=== PATIENT | female | born 1940 | race Caucasian/White ===

== ENCOUNTER 2017-12-19 11:33 | Inpatient (IN) | payer OTHER ==
[2017-12-19] MEDS: NS 1000 ML 1,000 ML IV SCH (12:10)
[2017-12-19 12:27] LABS: BASOPHILS % (AUTO) 0.5 % (0.2-1.0); EOSINOPHILS % (AUTO) 0.1 % (0.9-2.9); HEMATOCRIT 47.4 % (36.0-47.0); HEMOGLOBIN 16.1 g/dL (12.0-16.0); LYMPHOCYTES % (AUTO) 11.1 % (21.0-51.0); MEAN CORPUSCULAR HEMOGLOBIN 29.6 pg (27.0-34.0); MEAN CORPUSCULAR VOLUME 87.1 fL (80.0-100.0); MONOCYTES # (AUTO) 0.4 x10^3/uL (0.3-0.8); MONOCYTES % (AUTO) 4.8 % (0.0-13.0); NEUTROPHILS # (AUTO) 7.9 x10^3/uL (2.2-4.8); NEUTROPHILS % (AUTO) 83.5 % (42.0-75.0); PLATELET COUNT 316 X10^3/uL (150.0-450.0); RED BLOOD COUNT 5.44 X10^6/uL (3.5-5.4); RED CELL DISTRIBUTION WIDTH 13.8 % (11.6-16.5); WHITE BLOOD COUNT 9.4 X10^3/uL (3.6-10.0)
[2017-12-19 12:53] LABS: ALANINE AMINOTRANSFERASE 24 Units/L (12-78); ALBUMIN 3.7 g/dL (3.4-5.0); ALKALINE PHOSPHATASE 75 Units/L (46-116); ASPARTATE AMINO TRANSFERASE 18 Units/L (15-37); BLOOD UREA NITROGEN 31 mg/dL (7-18); CALCIUM 9.2 mg/dL (8.5-10.1); CARBON DIOXIDE 27.1 mmol/L (21-32); CHLORIDE 100 mmol/L (98-107); CKMB % 1.8 % (<4); COR NA(FOR HYPERGLY) 140 mmol/L (136-145); CREATINE KINASE 63 Units/L (26-192); CREATINE KINASE MB 1.1 ng/mL (0-4.0); CREATININE 1.28 mg/dL (0.55-1.02); SODIUM 139 mmol/L (136-145); TOTAL PROTEIN 7.5 g/dL (6.4-8.2); TROPONIN I < 0.02 ng/mL (0-1.5); eGFR BLACK RACES 52 (>60); eGFR NON BLACK RACES 43 (>60)
[2017-12-19] MEDS ORDERED: POTASSIUM CHL 40 MEQ/NS 0.45% 500 ML IV PRN (13:15)
[2017-12-19] MEDS ORDERED: POTASSIUM CHL 60 MEQ/NS 0.45% 500 ML IV PRN (13:15)
[2017-12-19] MEDS ORDERED: POTASSIUM CHLORIDE LIQ 20 MEQ UDC PO PRN (13:15)
[2017-12-19] MEDS ORDERED: K-LYTE EFFERVESCENT PO PRN (13:15)
[2017-12-19] MEDS ORDERED: MAG-OX TAB PO PRN (13:15)
[2017-12-19 13:30] VITALS: BMI 25.1
[2017-12-19] MEDS: K-RIDER 10 MEQ/NS 100 ML 10 MEQ/100 ML BAG IV PRN ×2 (13:32→14:50)
--- NOTE | 2017-12-19 13:35 | RAD ---
Indication: Pain . Exam: Portable chest Technique: Portable AP chest Comparison: None. Findings: The heart is normal. There is a moderate size hiatal hernia along the lower mediastinum. Th ere surgical clips along the left paratracheal region. No consolidation or effusion is seen. There is skinfold artifact bilaterally. Impression: Moderate hiatal hernia along the lower mediastinum with no acute pulmonary abnormality. Reported By:
[2017-12-19] MEDS: NORMODYNE INJ 20 MG VIAL IV PRN (14:34)
[2017-12-19 15:40] LABS: BILIRUBIN,URINE NEGATIVE (NEGATIVE); BLOOD/HEMOGLOBIN,URINE 4+ (NEGATIVE); GLUCOSE, URINE NEGATIVE (NEGATIVE); KETONES,URINE 3+ (NEGATIVE); LEUKOCYTE ESTERASE ,URINE NEGATIVE (NEGATIVE); NITRITES,URINE NEGATIVE (NEGATIVE); PROTEIN,URINE 2+ (NEGATIVE); UROBILINOGEN,URINE NORMAL (NORMAL)
[2017-12-19 15:47] LABS: APPEARANCE,URINE CLEAR (CLEAR); BACTERIA,URINE NEGATIVE /HPF (NEGATIVE); COLOR,URINE YELLOW (YELLOW); MUCUS,URINE RARE /HPF (NEGATIVE); RBC,URINE 0 - 3 /HPF (NEGATIVE); SQUAMOUS EPITHELIAL CELL,UR RARE /HPF (NEGATIVE)
[2017-12-19] MEDS ORDERED: ZOFRAN INJ 4 MG VIAL IVP ONE (16:48)
[2017-12-19] MEDS ORDERED: ZOFRAN INJ 4 MG VIAL IVP PRN (16:50)
[2017-12-19 17:03] LABS: CKMB % 2.1 % (<4); CREATINE KINASE 52 Units/L (26-192); CREATINE KINASE MB 1.1 ng/mL (0-4.0); TROPONIN I < 0.02 ng/mL (0-1.5)
[2017-12-19 20:56] LABS: CKMB % 2.2 % (<4); CREATINE KINASE 46 Units/L (26-192); TROPONIN I < 0.02 ng/mL (0-1.5)
[2017-12-19] MEDS: ZOFRAN INJ 4 MG VIAL IVP SCH (21:55)
--- NOTE | 2017-12-19 23:28 | RAD ---
Acute abdominal series, three views Indication: Abdominal pain Comparison: None Findings: Heart size is normal. No focal consolidation, effusion or pneumothorax is identified. Moder ate-sized hiatal hernia is noted. There are several loops of mildly dilated, gas filled small bowel throughout the abdomen. Bowel gas i s seen to the level of the rectum. No free air or pneumatosis is identified. No pathologic calcificat ions are seen. Visualized osseous structures are intact. Impression: No acute chest process. Nonspecific bowel gas pattern, as above. Findings are felt to represent generalized ileus as bowel ga s is seen to the level of the rectum. However, early small bowel obstruction can also have a similar appearance and clinical correlation is recommended. Reported By:
[2017-12-20] MEDS: NS 1000 ML 1,000 ML IV SCH ×3 (04:15→20:20)
[2017-12-20] MEDS: ZOFRAN INJ 4 MG VIAL IVP SCH (06:16)
[2017-12-20 06:24] LABS: BASOPHILS % (AUTO) 0.1 % (0.2-1.0); HEMATOCRIT 44.9 % (36.0-47.0); HEMOGLOBIN 15.2 g/dL (12.0-16.0); LYMPHOCYTES # (AUTO) 1.2 X10^3/uL (1.3-2.9); LYMPHOCYTES % (AUTO) 7.8 % (21.0-51.0); MEAN CORPUSCULAR HEMOGLOBIN 29.3 pg (27.0-34.0); MEAN CORPUSCULAR HGB CONC 33.9 g/dL (33.0-35.0); MEAN CORPUSCULAR VOLUME 86.4 fL (80.0-100.0); MEAN PLATELET VOLUME 8.2 fL (7.4-11.0); MONOCYTES # (AUTO) 0.8 x10^3/uL (0.3-0.8); MONOCYTES % (AUTO) 5.1 % (0.0-13.0); PLATELET COUNT 317 X10^3/uL (150.0-450.0)
[2017-12-20 06:32] LABS: ALANINE AMINOTRANSFERASE 14 Units/L (12-78); ALBUMIN 3.1 g/dL (3.4-5.0); ALKALINE PHOSPHATASE 63 Units/L (46-116); ASPARTATE AMINO TRANSFERASE 12 Units/L (15-37); BLOOD UREA NITROGEN 22 mg/dL (7-18); CALCIUM 8.9 mg/dL (8.5-10.1); CARBON DIOXIDE 27.4 mmol/L (21-32); CHLORIDE 101 mmol/L (98-107); COR CA(FOR HYPOALB) 9.6 mg/dL (8.5-10.1); COR NA(FOR HYPERGLY) 139 mmol/L (136-145); CREATININE 0.89 mg/dL (0.55-1.02); SODIUM 138 mmol/L (136-145); TOTAL PROTEIN 6.8 g/dL (6.4-8.2); eGFR BLACK RACES > 60 (>60); eGFR NON BLACK RACES > 60 (>60)
[2017-12-20 06:42] LABS: GASTRIC OCCULT BLOOD POSITIVE (NEGATIVE); PH 5
[2017-12-20] MEDS: PROTONIX INJ 40 MG VIAL IVP SCH ×2 (09:38→20:30)
[2017-12-20] MEDS: PEPCID 20 MG IV PREMIX* 20 MG/50 ML BAG IV SCH ×2 (09:38→20:31)
[2017-12-20] MEDS ORDERED: NS 250 ML IV 250 ML IV ONE (11:50)
[2017-12-20] MEDS: MAGNESIUM SULFATE 1 GM/100 mL PREMIX 1 GM/100 ML BAG IV PRN ×2 (11:54→13:26)
[2017-12-20] MEDS ORDERED: NS 250 ML IV 250 ML IV SCH (12:00)
[2017-12-20] MEDS ORDERED: NS 250 ML IV 250 ML IV PRN (12:42)
[2017-12-20] MEDS: CIPRO IV 400 MG PREMIX* 400 MG/200 ML IV.SOLN. IV SCH ×2 (14:03→20:31)
[2017-12-20] MEDS: ZOFRAN INJ 4 MG VIAL 16 MG, ATIVAN INJ 2 MG VIAL 1 MG, DECADRON INJ 10 MG in NS 50 ML I... IV PRN (14:04)
[2017-12-20] MEDS: SYNTHROID 75 mcg TAB PO SCH (15:41)
[2017-12-20] MEDS: COZAAR PO SCH ×2 (15:41→20:31)
--- NOTE | 2017-12-20 23:09 | DR.UPDATE ---
H&P Update History and Physical Update: WAS SEEN IN THE OFFICE ON 12/19/16. A H&P WAS COMPLETED PRIOR TO ADMISSION. PATIENT HAS BEEN SEEN AND EXAMINED WITH NO CHANGES NOTED TO H&P. Changes noted: NO Yes with the following:
--- NOTE | 2017-12-20 23:22 | PCM.PROG ---
Progress Note - Progress Note for Day of Date: 12/20/17 - Subjective Subjective: WAS A DIRECT ADMIT YESTERDAY FOR INTRACTABLE NAUSEA AND VOMITING, DEHYDRATION, AND ABDOMINAL PAIN. TODAY, SHE IS ALERT AND ORIENTED, LYING IN BED ON MORNING ROUNDS. PATIENTS FAMILY IS AT BEDSIDE. TODAY, SHE CONTINUES WITH COMPLAINTS OF NAUSEA, VOMITING, DIFFUSE ABDOMINAL PAIN, AND WEAKNESS. PATIENT STATES THAT EMESIS CONTINUES TO BE DARK IN COLOR. A SAMPLE WAS SENT TO LAB YESTERDAY AND REPORTED POSITIVE FOR OCCULT BLOOD. ON EXAMINATION , HEART IS REGULAR IN RATE AND RHYTHM. BIALTERAL LUNGS ARE NOTED TO BE CLEAR TO AUSCULTATION. ABDOMEN IS ROUND, SOFT, AND NOTED WITH MODERATE, DIFFUSE TENDERNESS ON PALPATION. HYPERACTIVE BOWEL SOUNDS ARE NOTED IN ALL QUADRANTS. THERE IS NORMAL RANGE OF MOTION NOTED TO ALL EXTREMITIES. HER VITALS THIS MORNING ARE 97.8-66-25-92%-189/77. LABS WERE OBTAINED. ABNORMAL LAB VALUES INCLUDE THE FOLLOWING: WBC INCREASED FROM 9.4 TO 16.0, POTASSIUM 3.3, BUN 22, GLUCOSE 154, TOTAL BILIRUBIN 1.40, AST 12, ALBUMIN 3.1. AN ABDOMEN XRAY WAS OBTAINED LAST NIGHT DUE TO ABDOMINAL PAIN. IT REPORTED NONSPECIFIC GAS PATTERN. FINDINGS ARE FELT OT REPRESENT GENERALIZED ILEUS BOWEL GAS IS SEEN TO THE LEVEL OF THE RECTUM. SHE WAS STARTED ON IV LABETALOL YESTERDAY DUE TO ELEVATED BLOOD PRESSURE AND INABILITY TO HOLD DOWN PO MEDICATIONS. DUE TO INTRACTABLE NAUSEA AND VOMITING, WE WILL START ZOFRAN COCKTAIL, INCLUDING ZOFRAN, ATIVAN, AND DECADRON Q8H PRN. WE WILL ALSO START CIPRO 400MG IV Q12H AND ORDER FOR PATIENT TO BE NPO WITH THE EXCEPTION OF ORAL MEDICATIONS. WE WILL REPLACE HER POTASSIUM AND MAGNESIUM TODAY WITH THE PROTOCOL. OTHERWISE, WE WILL CONTINUE WITH CURRENT PLAN OF CARE TODAY. WE PLAN TO FOLLOW UP WITH AM LABS AND CONTINUE TO MOITOR PATIENT. - Past Medical Family Social History Past Med/Fam/Surg Hx: No changes since H&P Allergies: Allergies Penicillins Allergy (Verified 12/19/17 11:52) - Review of Systems ROS: No change since H&P - Vital Signs and I&O's Vital Signs: Temperature 97.8 F Pulse Rate [Apical] 74 Respiratory Rate 26 Blood Pressure [Right Arm] 159/72 O2 Sat by Pulse Oximetry 92 Intake and Output: Intake & Output 0112/19/17 12/20/17 12/21/17 11:59 11:59 11:59 11:59 Intake Total 1651 943 Output Total 300 Balance 1351 943 - Physical Exam Oriented: Normal Eyes: Normal. negative: Blurred Vision, Diplopia, Discharge, Pain, Redness, Photophobia, Other Ear: Normal. negative: Right, Left, Swelling, Ecchymosis, Hemotypanum, Abrasion , Laceration Nose: Normal. negative: Injected, Discharge, Blood, Other Throat: Normal. negative: Tonsillar Hypertrophy, Red, Exudate, Dry, Other Respiratory: Normal Cardiovascular: Normal. negative: S3, S4, Murmur : Normal. negative: Dysuria, Hematuria, Frequency, Discharge, Testicular Pain , Bleeding, , Other Auscultation: Bowel Sounds: Increased Palpation: Normal Tenderness: Diffuse, Moderate, Guarding. negative: Rebound, Rigidity Skin: Normal Musculoskeletal: Normal Psychiatric: Normal Mood Description: Calm Affect: Normal Speech Pattern: Clear - Laboratory and Diagnostics Result Diagrams: 12/20/17 05:30 12/20/17 05:30 Labs: Laboratory WBC 16.0 X10^3/uL (3.6-10.0) H 12/20/17 05:30 RBC 5.20 X10^6/uL (3.5-5.4) 12/20/17 05:30 Hgb 15.2 g/dL (12.0-16.0) 12/20/17 05:30 Hct 44.9 % (36.0-47.0) 12/20/17 05:30 MCV 86.4 fL (80.0-100.0) 12/20/17 05:30 MCH 29.3 pg (27.0-34.0) 12/20/17 05:30 MCHC 33.9 g/dL (33.0-35.0) 12/20/17 05:30 RDW 14.0 % (11.6-16.5) 12/20/17 05:30 Plt Count 317 X10^3/uL (150.0-450.0) 12/20/17 05:30 MPV 8.2 fL (7.4-11.0) 12/20/17 05:30 Neut % 87.0 % (42.0-75.0) H 12/20/17 05:30 Lymph % 7.8 % (21.0-51.0) L 12/20/17 05:30 [place] % 5.1 % (0.0-13.0) 12/20/17 05:30 Eos % 0.0 % (0.9-2.9) L 12/20/17 05:30 Baso % 0.1 % (0.2-1.0) L 12/20/17 05:30 Neut # 14.0 x10^3/uL (2.2-4.8) H 12/20/17 05:30 Lymph # 1.2 X10^3/uL (1.3-2.9) L 12/20/17 05:30 [place] # 0.8 x10^3/uL (0.3-0.8) 12/20/17 05:30 Eos # 0.0 x10^3/uL (0.0-0.2) 12/20/17 05:30 Baso # 0.0 X10^3/uL (0.0-0.1) 12/20/17 05:30 Absolute Nucleated RBC 0.0 /100WBC 12/20/17 05:30 Sodium 138 mmol/L (136-145) 12/20/17 05:30 Corrected Sodium 139 mmol/L (136-145) 12/20/17 05:30 Potassium 3.3 mmol/L (3.5-5.1) L 12/20/17 05:30 Chloride 101 mmol/L (98-107) 12/20/17 05:30 Carbon Dioxide 27.4 mmol/L (21-32) 12/20/17 05:30 BUN 22 mg/dL (7-18) H 12/20/17 05:30 Creatinine 0.89 mg/dL (0.55-1.02) 12/20/17 05:30 Est GFR (MDRD) Af Amer > 60 (>60) 12/20/17 05:30 Est GFR (MDRD) Non-Af > 60 (>60) 12/20/17 05:30 Glucose 154 mg/dL (65-99) H 12/20/17 05:30 Calcium 8.9 mg/dL (8.5-10.1) 12/20/17 05:30 Corrected Calcium 9.6 mg/dL (8.5-10.1) 12/20/17 05:30 Magnesium 1.7 mg/dL (1.7-2.9) 12/20/17 05:30 Total Bilirubin 1.40 mg/dL (0.2-1.0) H 12/20/17 05:30 AST 12 Units/L (15-37) L 12/20/17 05:30 ALT 14 Units/L (12-78) 12/20/17 05:30 Alkaline Phosphatase 63 Units/L (46-116) 12/20/17 05:30 Creatine Kinase 46 Units/L (26-192) 12/19/17 20:00 CK-MB (CK-2) 1.0 ng/mL (0-4.0) 12/19/17 20:00 CK/CKMB % Calc 2.2 % (<4) 12/19/17 20:00 Troponin I < 0.02 ng/mL (0-1.5) 12/19/17 20:00 Total Protein 6.8 g/dL (6.4-8.2) 12/20/17 05:30 Albumin 3.1 g/dL (3.4-5.0) L 12/20/17 05:30 Globulin 3.7 g/dL (2.5-4.5) 12/20/17 05:30 Albumin/Globulin Ratio 0.8 Ratio (1.1-2.1) L 12/20/17 05:30 Specimen Type Clean catch urine 12/19/17 15:30 Urine Color Yellow (YELLOW) 12/19/17 15:30 Urine Appearance Clear (CLEAR) 12/19/17 15:30 Urine pH 6.0 (5.0 - 8.0) 12/19/17 15:30 Ur Specific [place] 1.020 (1.000-1.030) 12/19/17 15:30 Urine Protein 2+ (NEGATIVE) 12/19/17 15:30 Urine Glucose (UA) Negative (NEGATIVE) 12/19/17 15:30 Urine Ketones 3+ (NEGATIVE) 12/19/17 15:30 Urine Occult Blood 4+ (NEGATIVE) 12/19/17 15:30 Urine Nitrite Negative (NEGATIVE) 12/19/17 15:30 Urine Bilirubin Negative (NEGATIVE) 12/19/17 15:30 Urine Urobilinogen Normal (NORMAL) 12/19/17 15:30 Ur Leukocyte Esterase Negative (NEGATIVE) 12/19/17 15:30 Urine RBC 0 - 3 /HPF (NEGATIVE) 12/19/17 15:30 Urine WBC Rare /HPF (NEGATIVE) 12/19/17 15:30 Ur Squamous Epith Cells Rare /HPF (NEGATIVE) 12/19/17 15:30 Urine Bacteria Negative /HPF (NEGATIVE) 12/19/17 15:30 Urine Mucus Rare /HPF (NEGATIVE) 12/19/17 15:30 Ur Culture Indicated? No/not indicated 12/19/17 15:30 Gastric Occult Blood Positive (NEGATIVE) A 12/20/17 06:20 Stool pH 5 12/20/17 06:20 Influenza Type A (PCR) Negative (NEGATIVE) 12/19/17 12:17 Influenza Type B (PCR) Negative (NEGATIVE) 12/19/17 12:17 - Plan (1) Intractable nausea and vomiting Status: Acute Qualifiers: Vomiting type: unspecified Qualified Code(s): R11.2 - Nausea with vomiting , unspecified Plan: ZOFRAN COCKTAIL IV Q8H PRN, PEPCID 20MG IV Q12H, PROTONIX 40MG IV BID, CONTINUE TO MONITOR (2) Ileus Status: Acute Plan: CIPRO 400MG IV Q12H, ZOFRAN COCKTAIL, CONTINUE TO MONITOR (3) Hypertension Status: Acute Qualifiers: Hypertension type: essential hypertension Qualified Code(s): I10 - Essential (primary) hypertension Plan: LABETALOL PROTOCOL, CONTINUE COZAAR, CONTINUE TO MONITOR (4) Hypothyroidism Status: Acute Qualifiers: Hypothyroidism type: acquired Qualified Code(s): E03.9 - Hypothyroidism, unspecified Plan: CONTINUE SYNTHROID, CONTINUE TO MONITOR
[2017-12-21] MEDS: NS 1000 ML 1,000 ML IV SCH ×2 (03:00→10:08)
[2017-12-21 06:30] LABS: BASOPHILS # (AUTO) 0.1 X10^3/uL (0.0-0.1); BASOPHILS % (AUTO) 0.3 % (0.2-1.0); HEMATOCRIT 46.7 % (36.0-47.0); LYMPHOCYTES # (AUTO) 0.8 X10^3/uL (1.3-2.9); LYMPHOCYTES % (AUTO) 4.5 % (21.0-51.0); MEAN CORPUSCULAR HEMOGLOBIN 29.9 pg (27.0-34.0); MEAN CORPUSCULAR HGB CONC 34.3 g/dL (33.0-35.0); MEAN CORPUSCULAR VOLUME 87.1 fL (80.0-100.0); MEAN PLATELET VOLUME 8.3 fL (7.4-11.0); MONOCYTES # (AUTO) 0.9 x10^3/uL (0.3-0.8); MONOCYTES % (AUTO) 5.3 % (0.0-13.0); NEUTROPHILS # (AUTO) 15.3 x10^3/uL (2.2-4.8); NEUTROPHILS % (AUTO) 89.9 % (42.0-75.0); PLATELET COUNT 264 X10^3/uL (150.0-450.0); RED BLOOD COUNT 5.36 X10^6/uL (3.5-5.4); WHITE BLOOD COUNT 17.1 X10^3/uL (3.6-10.0)
[2017-12-21] MEDS: NORMODYNE INJ 20 MG VIAL IV PRN (07:19)
--- NOTE | 2017-12-21 07:35 | RAD ---
Examination: Portable KUB History: Abdominal pain Comparison 12/19/2017 Findings: The submitted image is of limited technical quality; the upper abdomen, and much of the rig ht flank and right abdomen are not included on the image. There is nonspecific gaseous distention of visualized segments of small and large bowel. Impression: Technically suboptimal portable study, see above. A repeat examination is requested. Reported By:
[2017-12-21 07:43] LABS: ALANINE AMINOTRANSFERASE 13 Units/L (12-78); ALBUMIN 2.7 g/dL (3.4-5.0); ALKALINE PHOSPHATASE 63 Units/L (46-116); ASPARTATE AMINO TRANSFERASE 13 Units/L (15-37); BLOOD UREA NITROGEN 17 mg/dL (7-18); CALCIUM 8.3 mg/dL (8.5-10.1); CARBON DIOXIDE 25.5 mmol/L (21-32); CHLORIDE 101 mmol/L (98-107); COR CA(FOR HYPOALB) 9.3 mg/dL (8.5-10.1); COR NA(FOR HYPERGLY) 135 mmol/L (136-145); CREATININE 0.87 mg/dL (0.55-1.02); SODIUM 134 mmol/L (136-145); TOTAL PROTEIN 6.7 g/dL (6.4-8.2); eGFR BLACK RACES > 60 (>60); eGFR NON BLACK RACES > 60 (>60)
[2017-12-21] MEDS ORDERED: ZOFRAN INJ 4 MG VIAL ONE (08:47)
[2017-12-21] MEDS ORDERED: MORPHINE SULFATE INJ 4 MG ONE (08:47)
[2017-12-21] MEDS: PEPCID 20 MG IV PREMIX* 20 MG/50 ML BAG IV SCH ×2 (08:55→21:00)
[2017-12-21] MEDS: CIPRO IV 400 MG PREMIX* 400 MG/200 ML IV.SOLN. IV SCH ×2 (08:56→21:00)
[2017-12-21] MEDS: ESTRACE PO SCH (08:56)
[2017-12-21] MEDS: COZAAR PO SCH ×2 (08:56→21:00)
[2017-12-21] MEDS: SYNTHROID 75 mcg TAB PO SCH (08:57)
[2017-12-21] MEDS: PROTONIX INJ 40 MG VIAL IVP SCH ×2 (08:59→21:05)
[2017-12-21] MEDS: MORPHINE SULFATE INJ 2 MG INJ IVP PRN (09:00)
[2017-12-21] MEDS: ZOFRAN INJ 4 MG VIAL 16 MG, ATIVAN INJ 2 MG VIAL 1 MG, DECADRON INJ 10 MG in NS 50 ML I... IV PRN (10:08)
--- NOTE | 2017-12-21 10:10 | PCM.PROG ---
Progress Note - Progress Note for Day of Date: 12/21/17 - Subjective Subjective: WAS A DIRECT ADMIT YESTERDAY FOR INTRACTABLE NAUSEA AND VOMITING, DEHYDRATION, AND ABDOMINAL PAIN. TODAY, SHE IS ALERT AND ORIENTED, LYING IN BED ON MORNING ROUNDS. PATIENTS FAMILY IS AT BEDSIDE. TODAY, SHE CONTINUES WITH COMPLAINTS OF NAUSEA, WEAKNESS, AND RLQ AND LLQ PAIN. SHE REPORTS THAT ABDOMINAL PAIN HAS INCREASED IN SEVERITY SINCE YESTERDAY. ON EXAMINATION, HEART IS REGULAR IN RATE AND RHYTHM. BIALTERAL LUNGS ARE NOTED TO BE CLEAR TO AUSCULTATION. ABDOMEN IS ROUND, SOFT, AND NOTED WITH MODERATE TENDERNESS TO THE RLQ AND LLQ. REBOUND TENDERNESS NOTED TO THE RLQ. HYPERACTIVE BOWEL SOUNDS ARE NOTED IN ALL QUADRANTS. THERE IS NORMAL RANGE OF MOTION NOTED TO ALL EXTREMITIES. HER VITALS THIS MORNING ARE 97.9-81-26-93%-167/93. LABS WERE OBTAINED. ABNORMAL LAB VALUES INCLUDE THE FOLLOWING: WBC INCREASED FROM 16.0 TO 17.1, SODIUM 134, GLUCOSE 129, CALCIUM 8.3, AST 13, ALBUMIN 2.7. A KUB WAS OBTAINED THIS MORNING AND REPORTED NONSPECIFIC GASEOUS DISTENTION OF VISUALIZED SEGMENTS OF SMALL AND LARGE BOWEL. TODAY, WE WILL START MORPHIN 2- 4MG IV Q4H PRN PAIN AND OBTAIN AN ABD/PELVIS CT WITH CONTRAST TO RULE OUT APPENDICITIS OR OTHER ACUTE FINDINGS. OTHERWISE, WE WILL CONTINUE WITH CURRENT PLAN OF CARE TODAY. WE PLAN TO FOLLOW UP WITH AM LABS AND CONTINUE TO MOITOR PATIENT. - Past Medical Family Social History Past Med/Fam/Surg Hx: No changes since H&P Allergies: Allergies Penicillins Allergy (Verified 12/19/17 11:52) - Review of Systems ROS: No change since H&P - Vital Signs and I&O's Vital Signs: Temperature 98.9 F Pulse Rate [Apical] 81 Respiratory Rate 26 Blood Pressure [Right Arm] 167/93 O2 Sat by Pulse Oximetry 93 Intake and Output: Intake & Output 12/18/17 12/19/17 12/20/17 12/21/17 11:59 11:59 11:59 11:59 Intake Total 1651 2872 Output Total 300 440 Balance 1351 2432 - Physical Exam Oriented: Normal Eyes: Normal. negative: Blurred Vision, Diplopia, Discharge, Pain, Redness, Photophobia, Other Ear: Normal. negative: Right, Left, Swelling, Ecchymosis, Hemotypanum, Abrasion , Laceration Nose: Normal. negative: Injected, Discharge, Blood, Other Throat: Normal. negative: Tonsillar Hypertrophy, Red, Exudate, Dry, Other Respiratory: Normal Cardiovascular: Normal. negative: S3, S4, Murmur : Normal. negative: Dysuria, Hematuria, Frequency, Discharge, Testicular Pain , Bleeding, , Other Auscultation: Bowel Sounds: Increased Palpation: Normal Tenderness: RLQ, LLQ, Moderate, Guarding. negative: Rebound, Rigidity Skin: Normal Musculoskeletal: Normal Psychiatric: Normal Mood Description: Calm Affect: Normal Speech Pattern: Clear - Laboratory and Diagnostics Result Diagrams: 12/21/17 06:05 12/21/17 06:05 Labs: Laboratory WBC 17.1 X10^3/uL (3.6-10.0) H 12/21/17 06:05 RBC 5.36 X10^6/uL (3.5-5.4) 12/21/17 06:05 Hgb 16.0 g/dL (12.0-16.0) 12/21/17 06:05 Hct 46.7 % (36.0-47.0) 12/21/17 06:05 MCV 87.1 fL (80.0-100.0) 12/21/17 06:05 MCH 29.9 pg (27.0-34.0) 12/21/17 06:05 MCHC 34.3 g/dL (33.0-35.0) 12/21/17 06:05 RDW 14.0 % (11.6-16.5) 12/21/17 06:05 Plt Count 264 X10^3/uL (150.0-450.0) 12/21/17 06:05 MPV 8.3 fL (7.4-11.0) 12/21/17 06:05 Neut % 89.9 % (42.0-75.0) H 12/21/17 06:05 Lymph % 4.5 % (21.0-51.0) L 12/21/17 06:05 [place] % 5.3 % (0.0-13.0) 12/21/17 06:05 Eos % 0.0 % (0.9-2.9) L 12/21/17 06:05 Baso % 0.3 % (0.2-1.0) 12/21/17 06:05 Neut # 15.3 x10^3/uL (2.2-4.8) H 12/21/17 06:05 Lymph # 0.8 X10^3/uL (1.3-2.9) L 12/21/17 06:05 [place] # 0.9 x10^3/uL (0.3-0.8) H 12/21/17 06:05 Eos # 0.0 x10^3/uL (0.0-0.2) 12/21/17 06:05 Baso # 0.1 X10^3/uL (0.0-0.1) 12/21/17 06:05 Absolute Nucleated RBC 0.0 /100WBC 12/21/17 06:05 Sodium 134 mmol/L (136-145) L 12/21/17 06:05 Corrected Sodium 135 mmol/L (136-145) L 12/21/17 06:05 Potassium 4.0 mmol/L (3.5-5.1) 12/21/17 06:05 Chloride 101 mmol/L (98-107) 12/21/17 06:05 Carbon Dioxide 25.5 mmol/L (21-32) 12/21/17 06:05 BUN 17 mg/dL (7-18) 12/21/17 06:05 Creatinine 0.87 mg/dL (0.55-1.02) 12/21/17 06:05 Est GFR (MDRD) Af Amer > 60 (>60) 12/21/17 06:05 Est GFR (MDRD) Non-Af > 60 (>60) 12/21/17 06:05 Glucose 129 mg/dL (65-99) H 12/21/17 06:05 Calcium 8.3 mg/dL (8.5-10.1) L 12/21/17 06:05 Corrected Calcium 9.3 mg/dL (8.5-10.1) 12/21/17 06:05 Magnesium 1.7 mg/dL (1.7-2.9) 12/20/17 05:30 Total Bilirubin 0.90 mg/dL (0.2-1.0) 12/21/17 06:05 AST 13 Units/L (15-37) L 12/21/17 06:05 ALT 13 Units/L (12-78) 12/21/17 06:05 Alkaline Phosphatase 63 Units/L (46-116) 12/21/17 06:05 Creatine Kinase 46 Units/L (26-192) 12/19/17 20:00 CK-MB (CK-2) 1.0 ng/mL (0-4.0) 12/19/17 20:00 CK/CKMB % Calc 2.2 % (<4) 12/19/17 20:00 Troponin I < 0.02 ng/mL (0-1.5) 12/19/17 20:00 Total Protein 6.7 g/dL (6.4-8.2) 12/21/17 06:05 Albumin 2.7 g/dL (3.4-5.0) L 12/21/17 06:05 Globulin 4.0 g/dL (2.5-4.5) 12/21/17 06:05 Albumin/Globulin Ratio 0.7 Ratio (1.1-2.1) L 12/21/17 06:05 Specimen Type Clean catch urine 12/19/17 15:30 Urine Color Yellow (YELLOW) 12/19/17 15:30 Urine Appearance Clear (CLEAR) 12/19/17 15:30 Urine pH 6.0 (5.0 - 8.0) 12/19/17 15:30 Ur Specific [place] 1.020 (1.000-1.030) 12/19/17 15:30 Urine Protein 2+ (NEGATIVE) 12/19/17 15:30 Urine Glucose (UA) Negative (NEGATIVE) 12/19/17 15:30 Urine Ketones 3+ (NEGATIVE) 12/19/17 15:30 Urine Occult Blood 4+ (NEGATIVE) 12/19/17 15:30 Urine Nitrite Negative (NEGATIVE) 12/19/17 15:30 Urine Bilirubin Negative (NEGATIVE) 12/19/17 15:30 Urine Urobilinogen Normal (NORMAL) 12/19/17 15:30 Ur Leukocyte Esterase Negative (NEGATIVE) 12/19/17 15:30 Urine RBC 0 - 3 /HPF (NEGATIVE) 12/19/17 15:30 Urine WBC Rare /HPF (NEGATIVE) 12/19/17 15:30 Ur Squamous Epith Cells Rare /HPF (NEGATIVE) 12/19/17 15:30 Urine Bacteria Negative /HPF (NEGATIVE) 12/19/17 15:30 Urine Mucus Rare /HPF (NEGATIVE) 12/19/17 15:30 Ur Culture Indicated? No/not indicated 12/19/17 15:30 Gastric Occult Blood Positive (NEGATIVE) A 12/20/17 06:20 Stool pH 5 12/20/17 06:20 Influenza Type A (PCR) Negative (NEGATIVE) 12/19/17 12:17 Influenza Type B (PCR) Negative (NEGATIVE) 12/19/17 12:17 - Plan (1) Intractable nausea and vomiting Status: Acute Qualifiers: Vomiting type: unspecified Qualified Code(s): R11.2 - Nausea with vomiting , unspecified Plan: ZOFRAN COCKTAIL IV Q8H PRN, PEPCID 20MG IV Q12H, PROTONIX 40MG IV BID, CONTINUE TO MONITOR (2) Abdominal pain Status: Acute Qualifiers: Abdominal location: lower abdomen, unspecified Qualified Code(s): R10.30 - Lower abdominal pain, unspecified Plan: MORPHINE 2-4MG IV Q4H PRN PAIN, ABD/PELVIS CT WITH CONTRAST, CONTINUE TO MONITOR (3) Ileus Status: Acute Plan: CIPRO 400MG IV Q12H, ZOFRAN COCKTAIL, CONTINUE TO MONITOR (4) Hypertension Status: Acute Qualifiers: Hypertension type: essential hypertension Qualified Code(s): I10 - Essential (primary) hypertension Plan: LABETALOL PROTOCOL, CONTINUE COZAAR, CONTINUE TO MONITOR (5) Hypothyroidism Status: Acute Qualifiers: Hypothyroidism type: acquired Qualified Code(s): E03.9 - Hypothyroidism, unspecified Plan: CONTINUE SYNTHROID, CONTINUE TO MONITOR
[2017-12-21] MEDS ORDERED: NS 100 ML IV 100 ML IV ONE (11:20)
--- NOTE | 2017-12-21 12:59 | CT ---
HISTORY: Nausea vomiting and dehydration Study: CT abdomen and pelvis without contrast Comparison: None Technique: Multiple axial images of the abdomen and pelvis were obtained from the lung bases to the pubic symphy sis without the administration of IV contrast. Oral contrast was given to the patient. Findings: The visualized portions of the lung bases demonstrate trace effusions with atelectasis.. Moderate-si zed hiatal hernia is noted. The liver, spleen, pancreas, kidneys, and adrenal glands are unremarkable in their noncontrast CT appearance. The gallbladder is unremarkable in its CT appearance. There is a small amount of free fluid noted in the abdomen however there is a moderate amount of free intraper itoneal air of uncertain etiology. There are some dilated loops of small bowel in this area appears t o be centered around left lower quadrant there is some mild diverticular disease noted this could be the etiology reactive thickening of the small bowel. Regardless surgical consultation is recommended. . Appendix is not seen and ruptured appendicitis cannot be totally excluded but is felt less likely given this appear similar in the left lower quadrant. Ischemic bowel is also consideration however la ck of IV contrast limits assessment and correlation with lactic acid values may be some benefit.. The urinary bladder is grossly unremarkable. The bony structures are grossly intact. IMPRESSION: 1. Pneumoperitoneum of uncertain etiology with possible etiologies as above. 2. Moderate-sized hiatal hernia. Reported By:
[2017-12-21] MEDS ORDERED: NS 100 ML IV + SPIKE MINIBAG* 100 ML IV ONE (18:15)
[2017-12-21] MEDS ORDERED: ZOSYN VIAL 3.375 GM IV SCH (19:00)
[2017-12-22] MEDS: NS 1000 ML 1,000 ML IV SCH ×3 (03:53→06:59)
[2017-12-22] MEDS ORDERED: DECADRON INJ PRESERVATIVE-FREE IM ONE (03:58)
[2017-12-22] MEDS ORDERED: ZOFRAN INJ 4 MG VIAL ONE (03:58)
[2017-12-22] MEDS ORDERED: ATIVAN INJ 2 MG VIAL ONE ×2 (03:59→17:24)
[2017-12-22] MEDS ORDERED: NS 100 ML IV 0 ML IV ONE (04:02)
[2017-12-22] MEDS ORDERED: NS 100 ML IV 100 ML IV ONE (04:03)
[2017-12-22] MEDS: ZOFRAN INJ 4 MG VIAL 16 MG, ATIVAN INJ 2 MG VIAL 1 MG, DECADRON INJ 10 MG in NS 50 ML I... IV PRN (04:19)
[2017-12-22] MEDS: ZOSYN VIAL 3.375 GM 3.375 GM in NS 100 ML IV + SPIKE MINIBAG* 100 ML IV SCH ×5 (05:57→22:36)
--- NOTE | 2017-12-22 06:10 | RAD ---
Impression: Examination: Abdomen series with upright chest History: Abdominal pain Findings: Upright chest demonstrates normal heart size, hiatal hernia, compression atelectasis left l ower lung and large pneumoperitoneum. Additional abdomen films demonstrate gas and fluid dilatation of abdomen with free air in the periton eal cavity. Impression: 1. Pneumoperitoneum. In the absence of recent surgery or procedure, perforated viscus should be excl uded. 2. Intestinal gas pattern described may represent ileus or distal obstruction. 3. Findings called to Dr. Almanzar in the emergency department at 6:05 a.m., 12/22/2017. Reported By:
--- NOTE | 2017-12-22 06:16 | RAD ---
Examination: Chest, PA and lateral views History: Abdominal pain Findings: Normal heart size, large hiatal hernia with compression atelectasis in the left lower lung. Large pneumoperitoneum. Impression: Intrathoracic hiatal hernia, atelectasis in the left lower lung, pneumoperitoneum. If rec ent surgery or surgical procedure in the abdomen has not been performed, perforated intestinal viscus should be excluded. Findings were called to Dr. Almanzar in the emergency department at 6:05 a.m., 12/22/2017 Reported By:
[2017-12-22 06:52] LABS: BASOPHILS % (AUTO) 0.1 % (0.2-1.0); HEMATOCRIT 41.6 % (36.0-47.0); HEMOGLOBIN 14.5 g/dL (12.0-16.0); LYMPHOCYTES # (AUTO) 0.4 X10^3/uL (1.3-2.9); LYMPHOCYTES % (AUTO) 2.7 % (21.0-51.0); MEAN CORPUSCULAR HEMOGLOBIN 30.2 pg (27.0-34.0); MEAN CORPUSCULAR HGB CONC 34.9 g/dL (33.0-35.0); MEAN CORPUSCULAR VOLUME 86.4 fL (80.0-100.0); MEAN PLATELET VOLUME 8.1 fL (7.4-11.0); MONOCYTES # (AUTO) 0.7 x10^3/uL (0.3-0.8); MONOCYTES % (AUTO) 5.2 % (0.0-13.0); NEUTROPHILS # (AUTO) 12.6 x10^3/uL (2.2-4.8); PLATELET COUNT 281 X10^3/uL (150.0-450.0); RED BLOOD COUNT 4.81 X10^6/uL (3.5-5.4); RED CELL DISTRIBUTION WIDTH 13.9 % (11.6-16.5); WHITE BLOOD COUNT 13.7 X10^3/uL (3.6-10.0)
[2017-12-22 07:15] LABS: ALANINE AMINOTRANSFERASE 10 Units/L (12-78); ALBUMIN 2.3 g/dL (3.4-5.0); ALKALINE PHOSPHATASE 56 Units/L (46-116); ASPARTATE AMINO TRANSFERASE 10 Units/L (15-37); BLOOD UREA NITROGEN 18 mg/dL (7-18); CALCIUM 8.5 mg/dL (8.5-10.1); CARBON DIOXIDE 22.1 mmol/L (21-32); CHLORIDE 101 mmol/L (98-107); COR CA(FOR HYPOALB) 9.9 mg/dL (8.5-10.1); COR NA(FOR HYPERGLY) 135 mmol/L (136-145); CREATININE 0.81 mg/dL (0.55-1.02); SODIUM 134 mmol/L (136-145); TOTAL PROTEIN 6.2 g/dL (6.4-8.2); eGFR BLACK RACES > 60 (>60); eGFR NON BLACK RACES > 60 (>60)
[2017-12-22 07:21] LABS: PLATELET MORPHOLOGY COMMENT NORMAL (NORMAL)
[2017-12-22] MEDS: PEPCID 20 MG IV PREMIX* 20 MG/50 ML BAG IV SCH ×2 (08:20→21:08)
[2017-12-22] MEDS: CIPRO IV 400 MG PREMIX* 400 MG/200 ML IV.SOLN. IV SCH ×2 (08:20→21:08)
[2017-12-22] MEDS: ESTRACE PO SCH (08:21)
[2017-12-22] MEDS: PROTONIX INJ 40 MG VIAL IVP SCH ×2 (08:21→21:09)
[2017-12-22] MEDS: SYNTHROID 75 mcg TAB PO SCH (08:21)
[2017-12-22] MEDS: COZAAR PO SCH ×2 (08:22→21:09)
[2017-12-22] MEDS ORDERED: MARCAINE 0.25% INJ ONE (11:28)
[2017-12-22] MEDS ORDERED: LR 1000 ML IV 1,000 ML IV ONE ×3 (11:28→14:41)
[2017-12-22] MEDS ORDERED: FENTANYL INJ 250 mcg ONE (11:41)
[2017-12-22] MEDS ORDERED: BACITRACIN VIAL ONE ×2 (11:42→12:22)
[2017-12-22] MEDS ORDERED: DILAUDID INJ ONE (11:42)
[2017-12-22] MEDS ORDERED: NS IRRIGATION 1000 ML 1,000 ML with BACITRACIN VIAL 50,000 UNT IR ONE ×4 (12:19→13:38)
[2017-12-22] MEDS ORDERED: REGLAN INJ 10 MG VIAL IVP PRN (14:50)
[2017-12-22] MEDS ORDERED: DILAUDID INJ IVP PRN (14:50)
[2017-12-22] MEDS ORDERED: PHENERGAN INJ 25 MG IVP PRN (14:50)
[2017-12-22] MEDS ORDERED: ZOFRAN INJ 4 MG VIAL IVP PRN (14:50)
[2017-12-22] MEDS ORDERED: BENADRYL INJ 50 MG VIAL IVP PRN (14:50)
[2017-12-22] MEDS ORDERED: D5 1/2 NS 1000 ML 1,000 ML IV SCH (15:00)
--- NOTE | 2017-12-22 15:27 | OR.GENERIC ---
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 splenic Flexure was mobelized. finding : perforated diverticulitis of the mid sigmoid colon with peritonitis abdominal adhesions pt had previous appendectomy blood loss about 200 cc Pt was slightly hypotensive and needs more IVF will franko..nue IVF ATB and DVT prophylaxis
[2017-12-22] MEDS: D5 1/2 NS 1000 ML 1,000 ML IV SCH ×2 (17:52→23:10)
[2017-12-22] MEDS: MORPHINE SULFATE INJ 2 MG INJ IVP PRN (19:00)
[2017-12-22 21:46] LABS: HEMATOCRIT 42.9 % (36.0-47.0); HEMOGLOBIN 14.7 g/dL (12.0-16.0)
[2017-12-23] MEDS: ALBUMIN HUMAN 25%- 100ML 100 ML IV SCH (01:20)
[2017-12-23] MEDS: MORPHINE SULFATE INJ 2 MG INJ IVP PRN ×4 (02:57→21:21)
[2017-12-23] MEDS: D5 1/2 NS 1000 ML 1,000 ML IV SCH ×5 (05:25→21:20)
[2017-12-23] MEDS: ZOSYN VIAL 3.375 GM 3.375 GM in NS 100 ML IV + SPIKE MINIBAG* 100 ML IV SCH ×3 (05:38→22:15)
[2017-12-23 06:20] LABS: BILIRUBIN,URINE 1+ (NEGATIVE); BLOOD/HEMOGLOBIN,URINE 3+ (NEGATIVE); GLUCOSE, URINE 1+ (NEGATIVE); KETONES,URINE NEGATIVE (NEGATIVE); LEUKOCYTE ESTERASE ,URINE 1+ (NEGATIVE); NITRITES,URINE NEGATIVE (NEGATIVE); PROTEIN,URINE 2+ (NEGATIVE); UROBILINOGEN,URINE 1+ (NORMAL)
[2017-12-23 06:28] LABS: APPEARANCE,URINE SLIGHTLY HAZY (CLEAR); COLOR,URINE DARK YELLOW (YELLOW)
[2017-12-23 06:29] LABS: BASOPHILS % (AUTO) 0.1 % (0.2-1.0); EOSINOPHILS % (AUTO) 0.1 % (0.9-2.9); HEMATOCRIT 39.3 % (36.0-47.0); HEMOGLOBIN 13.3 g/dL (12.0-16.0); LYMPHOCYTES # (AUTO) 1.5 X10^3/uL (1.3-2.9); LYMPHOCYTES % (AUTO) 12.8 % (21.0-51.0); MEAN CORPUSCULAR HEMOGLOBIN 29.1 pg (27.0-34.0); MEAN CORPUSCULAR HGB CONC 33.8 g/dL (33.0-35.0); MEAN CORPUSCULAR VOLUME 86.2 fL (80.0-100.0); MEAN PLATELET VOLUME 8.4 fL (7.4-11.0); MONOCYTES % (AUTO) 8.6 % (0.0-13.0); NEUTROPHILS # (AUTO) 8.9 x10^3/uL (2.2-4.8); NEUTROPHILS % (AUTO) 78.4 % (42.0-75.0); PLATELET COUNT 268 X10^3/uL (150.0-450.0); RED BLOOD COUNT 4.55 X10^6/uL (3.5-5.4); WHITE BLOOD COUNT 11.4 X10^3/uL (3.6-10.0)
[2017-12-23 06:29] LABS: BACTERIA,URINE 2+ /HPF (NEGATIVE); SQUAMOUS EPITHELIAL CELL,UR RARE /HPF (NEGATIVE)
[2017-12-23 06:41] LABS: ALANINE AMINOTRANSFERASE 12 Units/L (12-78); ALBUMIN 1.6 g/dL (3.4-5.0); ALKALINE PHOSPHATASE 42 Units/L (46-116); ASPARTATE AMINO TRANSFERASE 14 Units/L (15-37); BLOOD UREA NITROGEN 23 mg/dL (7-18); CALCIUM 7.8 mg/dL (8.5-10.1); CHLORIDE 100 mmol/L (98-107); COR CA(FOR HYPOALB) 9.7 mg/dL (8.5-10.1); COR NA(FOR HYPERGLY) 135 mmol/L (136-145); CREATININE 1.03 mg/dL (0.55-1.02); SODIUM 132 mmol/L (136-145); eGFR BLACK RACES > 60 (>60); eGFR NON BLACK RACES 55 (>60)
[2017-12-23] MEDS: PROTONIX INJ 40 MG VIAL IVP SCH ×2 (10:13→21:21)
[2017-12-23] MEDS: CIPRO IV 400 MG PREMIX* 400 MG/200 ML IV.SOLN. IV SCH ×2 (10:15→21:21)
[2017-12-23] MEDS: PEPCID 20 MG IV PREMIX* 20 MG/50 ML BAG IV SCH ×2 (10:16→21:20)
[2017-12-23] MEDS ORDERED: LASIX IVP ONE (10:52)
[2017-12-23] MEDS ORDERED: PHARMACY CONSULT - TPN XX SCH (11:00)
[2017-12-23] MEDS: LOVENOX INJ 40 MG SYR SC SCH (11:27)
--- NOTE | 2017-12-23 12:07 | PCM.PROG ---
Progress Note - Progress Note for Day of Date: 12/23/17 - Subjective Subjective: P/o day 1 . S/P modefied Cooper's procedure for acute ruptured sigmoid diverticulitis '. having low urine output with consentrated urine .otherwise pt is stable. mild confusion which is expected after major surgery .. - Past Medical Family Social History Past Med/Fam/Surg Hx: No changes since H&P Allergies: Allergies Iodine and Iodide Containing Produc Allergy (Verified 12/21/17 18:53) Penicillins Allergy (Verified 12/19/17 11:52) Sulfa (Sulfonamide Antibiotics) [SULFA] Allergy (Verified 12/21/17 11:36) niacin Adverse Reaction (Verified 12/21/17 11:35) - Review of Systems ROS: No change since H&P - Vital Signs and I&O's Vital Signs: Temperature 98.7 F Pulse Rate [Apical] 90 Pulse Rate 105 Respiratory Rate 24 Blood Pressure [Left Arm] 124/64 Blood Pressure [Right Arm] 174/88 Blood Pressure 118/68 O2 Sat by Pulse Oximetry 94 Intake and Output: Intake & Output 12/21/17 12/22/17 12/23/17 12/24/17 11:59 11:59 11:59 11:59 Intake Total 2872 2330 5718 Output Total 220 689 3274 Balance 2432 2030 3076 - Physical Exam Oriented: Other (mild confusion ) Eyes: Normal. negative: Blurred Vision, Diplopia, Discharge, Pain, Redness, Photophobia, Other Ear: Normal. negative: Right, Left, Swelling, Ecchymosis, Hemotypanum, Abrasion , Laceration Nose: Normal. negative: Injected, Discharge, Blood, Other Throat: Normal. negative: Tonsillar Hypertrophy, Red, Exudate, Dry, Other Respiratory: Normal Cardiovascular: Normal. negative: S3, S4, Murmur : Normal. negative: Dysuria, Hematuria, Frequency, Discharge, Testicular Pain , Bleeding, , Other Auscultation: Bowel Sounds: Decreased Tenderness: RLQ, LLQ, Moderate, Other (generalized tenderness with hypoactive BS ). negative: Rebound, Rigidity Skin: Normal Musculoskeletal: Normal Psychiatric: Normal Mood Description: Calm Affect: Normal Speech Pattern: Clear - Laboratory and Diagnostics Result Diagrams: 12/23/17 06:00 12/23/17 06:00 Labs: 12/22/17 13:41 Peritoneal Fluid Gram Stain - Final 12/22/17 13:41 Peritoneal Fluid Wound Culture - Preliminary 12/22/17 13:41 Abdomen Gram Stain - Final 12/22/17 13:41 Abdomen Wound Culture - Preliminary Laboratory WBC 11.4 X10^3/uL (3.6-10.0) H 12/23/17 06:00 RBC 4.55 X10^6/uL (3.5-5.4) 12/23/17 06:00 Hgb 13.3 g/dL (12.0-16.0) 12/23/17 06:00 Hct 39.3 % (36.0-47.0) 12/23/17 06:00 MCV 86.2 fL (80.0-100.0) 12/23/17 06:00 MCH 29.1 pg (27.0-34.0) 12/23/17 06:00 MCHC 33.8 g/dL (33.0-35.0) 12/23/17 06:00 RDW 14.0 % (11.6-16.5) 12/23/17 06:00 Plt Count 268 X10^3/uL (150.0-450.0) 12/23/17 06:00 Plt Count Comment Adequate (ADEQUATE) 12/22/17 06:10 MPV 8.4 fL (7.4-11.0) 12/23/17 06:00 Neut % 78.4 % (42.0-75.0) H 12/23/17 06:00 Lymph % 12.8 % (21.0-51.0) L 12/23/17 06:00 [place] % 8.6 % (0.0-13.0) 12/23/17 06:00 Eos % 0.1 % (0.9-2.9) L 12/23/17 06:00 Baso % 0.1 % (0.2-1.0) L 12/23/17 06:00 Neut # 8.9 x10^3/uL (2.2-4.8) H 12/23/17 06:00 Lymph # 1.5 X10^3/uL (1.3-2.9) 12/23/17 06:00 [place] # 1.0 x10^3/uL (0.3-0.8) H 12/23/17 06:00 Eos # 0.0 x10^3/uL (0.0-0.2) 12/23/17 06:00 Baso # 0.0 X10^3/uL (0.0-0.1) 12/23/17 06:00 Absolute Nucleated RBC 0.0 /100WBC 12/23/17 06:00 Total Counted 100 12/22/17 06:10 Neutrophils % (Manual) 92 % (39-76) H 12/22/17 06:10 Lymphocytes % (Manual) 5 % (13-43) L 12/22/17 06:10 Monocytes % (Manual) 3 % (4-9) L 12/22/17 06:10 Plt Morphology Comment Normal (NORMAL) 12/22/17 06:10 RBC Morphology Normal (NORMAL) 12/22/17 06:10 INR Target Range - 12/21/17 14:10 INR 1.20 (0.8-1.3) 12/21/17 14:10 Sodium 132 mmol/L (136-145) L 12/23/17 06:00 Corrected Sodium 135 mmol/L (136-145) L 12/23/17 06:00 Potassium 3.6 mmol/L (3.5-5.1) 12/23/17 06:00 Chloride 100 mmol/L (98-107) 12/23/17 06:00 Carbon Dioxide 23.0 mmol/L (21-32) 12/23/17 06:00 BUN 23 mg/dL (7-18) H 12/23/17 06:00 Creatinine 1.03 mg/dL (0.55-1.02) H 12/23/17 06:00 Est GFR (MDRD) Af Amer > 60 (>60) 12/23/17 06:00 Est GFR (MDRD) Non-Af 55 (>60) L 12/23/17 06:00 Glucose 213 mg/dL (65-99) H 12/23/17 06:00 Lactic Acid 1.2 mmol/L (0.4-2.0) 12/21/17 14:10 Calcium 7.8 mg/dL (8.5-10.1) L 12/23/17 06:00 Corrected Calcium 9.7 mg/dL (8.5-10.1) 12/23/17 06:00 Magnesium 1.7 mg/dL (1.7-2.9) 12/20/17 05:30 Total Bilirubin 1.30 mg/dL (0.2-1.0) H 12/23/17 06:00 AST 14 Units/L (15-37) L 12/23/17 06:00 ALT 12 Units/L (12-78) 12/23/17 06:00 Alkaline Phosphatase 42 Units/L (46-116) L 12/23/17 06:00 Creatine Kinase 46 Units/L (26-192) 12/19/17 20:00 CK-MB (CK-2) 1.0 ng/mL (0-4.0) 12/19/17 20:00 CK/CKMB % Calc 2.2 % (<4) 12/19/17 20:00 Troponin I < 0.02 ng/mL (0-1.5) 12/19/17 20:00 Total Protein 5.0 g/dL (6.4-8.2) L 12/23/17 06:00 Albumin 1.6 g/dL (3.4-5.0) L 12/23/17 06:00 Globulin 3.4 g/dL (2.5-4.5) 12/23/17 06:00 Albumin/Globulin Ratio 0.5 Ratio (1.1-2.1) L 12/23/17 06:00 Prealbumin 9.7 mg/dL (18-35.7) L 12/23/17 06:00 Specimen Type Catherized urine 12/23/17 06:11 Urine Color Dark yellow (YELLOW) 12/23/17 06:11 Urine Appearance Slightly hazy (CLEAR) 12/23/17 06:11 Urine pH 5.0 (5.0 - 8.0) 12/23/17 06:11 Ur Specific [place] 1.025 (1.000-1.030) 12/23/17 06:11 Urine Protein 2+ (NEGATIVE) 12/23/17 06:11 Urine Glucose (UA) 1+ (NEGATIVE) 12/23/17 06:11 Urine Ketones Negative (NEGATIVE) 12/23/17 06:11 Urine Occult Blood 3+ (NEGATIVE) 12/23/17 06:11 Urine Nitrite Negative (NEGATIVE) 12/23/17 06:11 Urine Bilirubin 1+ (NEGATIVE) 12/23/17 06:11 Urine Urobilinogen 1+ (NORMAL) 12/23/17 06:11 Ur Leukocyte Esterase 1+ (NEGATIVE) 12/23/17 06:11 Urine RBC 5-10 /HPF (NEGATIVE) 12/23/17 06:11 Urine WBC 2-6 /HPF (NEGATIVE) 12/23/17 06:11 Ur Squamous Epith Cells Rare /HPF (NEGATIVE) 12/23/17 06:11 Urine Bacteria 2+ /HPF (NEGATIVE) 12/23/17 06:11 Urine Mucus Rare /HPF (NEGATIVE) 12/19/17 15:30 Ur Culture Indicated? Yes/culture set up 12/23/17 06:11 Gastric Occult Blood Positive (NEGATIVE) A 12/20/17 06:20 Stool pH 5 12/20/17 06:20 Influenza Type A (PCR) Negative (NEGATIVE) 12/19/17 12:17 Influenza Type B (PCR) Negative (NEGATIVE) 12/19/17 12:17 Tissue Pathology To follow 12/22/17 13:41 Blood Type O POSITIVE 12/22/17 11:55 Antibody Screen Negative 12/22/17 11:55 - Plan (1) Diverticulitis large intestine Status: Acute (2) Diverticulitis of large intestine with perforation Status: Acute (3) Peritonitis (acute) generalized Status: Acute Plan: on IV ATB. increase IVF with added Albumin and small dose of Lasix. DVT prophylaxis . OOB and PT. pulmonary care .
[2017-12-23] MEDS: PROCALAMINE 3 % 1,000 ML IV SCH (14:42)
[2017-12-23] MEDS: SYNTHROID 75 mcg TAB PO SCH (14:45)
[2017-12-23] MEDS: COZAAR PO SCH ×2 (14:45→21:21)
[2017-12-23] MEDS: ESTRACE PO SCH (14:45)
--- NOTE | 2017-12-23 20:08 | PCM.PROG ---
Progress Note - Progress Note for Day of Date: 12/22/17 - Subjective Subjective: WAS A DIRECT ADMISSION FOR INTRACTABLE NAUSEA AND VOMITING , DEHYDRATION, AND ABDOMINAL PAIN. TODAY, SHE IS ALERT AND ORIENTED, LYING IN BED ON MORNING ROUNDS. PATIENTS FAMILY IS AT BEDSIDE. TODAY, SHE CONTINUES WITH COMPLAINTS OF NAUSEA, WEAKNESS, AND DIFFUSE ABDOMINAL PAIN. SHE REPORTS THAT ABDOMINAL PAIN CONTINUES TO INCREASE IN SEVERITY. TODAY, SHE RATES PAIN 8/ 10. ON EXAMINATION, HEART IS REGULAR IN RATE AND RHYTHM. BIALTERAL LUNGS ARE NOTED TO BE CLEAR TO AUSCULTATION. ABDOMEN IS ROUND, SOFT, AND NOTED WITH MODERAT, DIFFUSE TENDERNESS. HYPOACTIVE BOWEL SOUNDS ARE NOTED IN ALL QUADRANTS. THERE IS NORMAL RANGE OF MOTION NOTED TO ALL EXTREMITIES. HER VITALS THIS MORNING ARE 99.1-77-24-91%-188/88. LABS WERE OBTAINED. ABNORMAL LAB VALUES INCLUDE THE FOLLOWING: WBC INCREASED FROM 13.7, SODIUM 134, GLUCOSE 131, AST 10 , ALT 10, TOTAL PROTEIN 6.2, ALBUMIN 2.3. AN ABD/PELVIS CT WAS OBTAINED YESTERDAY AND REPORTED PNEUMOPERITONEUM OF UNCERTAIN ETIOLOGY. MODERATE SIZED HIATAL HERNIA. WE CONSULTED DR. MENDIOLA. HE ORDERED FOR AN ABDOMINAL XRAY AND CHEST XRAY TO BE OBTAINED TODAY. ABDOMINAL XRAY REPORTED PNEUMOPERITONEUM. IN THE ABSENCE OF RECENT SURGERY OR PROCEDURE, PERFORATED VISCUS SHOULD BE EXCLUDED. INTESTINAL GAS PATTERN DESCRIBED MAY PRESENT ILEUS OR DISTAL OBSTRUCTION. CHEST XRAY REPORTED INTRATHORACIC HIATAL HERNIA, ATELECTASIS IN THE LEFT LOWER LUNG, PNEUMOPERITONEUM. WE DISCUSSED FINDINGS WITH . HE PLANS TO TAKE PATIENT TO THE OR FOR AN EXPLORATORY LAPAROTOMY TODAY. WE AGREE WITH PLAN. WE WILL FOLLOW UP WITH AM LABS AND CONTINUE TO MONITOR PATIENT AFTER SURGERY. - Past Medical Family Social History Past Med/Fam/Surg Hx: No changes since H&P Allergies: Allergies Iodine and Iodide Containing Produc Allergy (Verified 12/21/17 18:53) Penicillins Allergy (Verified 12/19/17 11:52) Sulfa (Sulfonamide Antibiotics) [SULFA] Allergy (Verified 12/21/17 11:36) niacin Adverse Reaction (Verified 12/21/17 11:35) - Review of Systems ROS: No change since H&P - Vital Signs and I&O's Vital Signs: Temperature 99.3 F Pulse Rate [Apical] 91 Pulse Rate 105 Respiratory Rate 21 Blood Pressure [Left Arm] 133/66 Blood Pressure [Right Arm] 174/88 Blood Pressure 118/68 O2 Sat by Pulse Oximetry 95 Intake and Output: Intake & Output 12/21/17 12/22/17 12/23/17 12/24/17 11:59 11:59 11:59 11:59 Intake Total 2872 2330 5865 1820 Output Total 235 721 7705 2455 Balance 2432 2030 9938 -627 - Physical Exam Oriented: Normal Eyes: Normal. negative: Blurred Vision, Diplopia, Discharge, Pain, Redness, Photophobia, Other Ear: Normal. negative: Right, Left, Swelling, Ecchymosis, Hemotypanum, Abrasion , Laceration Nose: Normal. negative: Injected, Discharge, Blood, Other Throat: Normal. negative: Tonsillar Hypertrophy, Red, Exudate, Dry, Other Respiratory: Normal Cardiovascular: Normal. negative: S3, S4, Murmur : Normal. negative: Dysuria, Hematuria, Frequency, Discharge, Testicular Pain , Bleeding, , Other Auscultation: Bowel Sounds: Decreased Palpation: Normal Tenderness: Diffuse, Moderate, Other (generalized tenderness with hypoactive BS) . negative: Rebound, Rigidity Skin: Normal Musculoskeletal: Normal Psychiatric: Normal Mood Description: Calm Affect: Normal Speech Pattern: Clear - Laboratory and Diagnostics Result Diagrams: 12/23/17 06:00 12/23/17 06:00 Labs: 12/22/17 13:41 Peritoneal Fluid Gram Stain - Final 12/22/17 13:41 Peritoneal Fluid Wound Culture - Preliminary 12/22/17 13:41 Abdomen Gram Stain - Final 12/22/17 13:41 Abdomen Wound Culture - Preliminary Laboratory WBC 11.4 X10^3/uL (3.6-10.0) H 12/23/17 06:00 RBC 4.55 X10^6/uL (3.5-5.4) 12/23/17 06:00 Hgb 13.3 g/dL (12.0-16.0) 12/23/17 06:00 Hct 39.3 % (36.0-47.0) 12/23/17 06:00 MCV 86.2 fL (80.0-100.0) 12/23/17 06:00 MCH 29.1 pg (27.0-34.0) 12/23/17 06:00 MCHC 33.8 g/dL (33.0-35.0) 12/23/17 06:00 RDW 14.0 % (11.6-16.5) 12/23/17 06:00 Plt Count 268 X10^3/uL (150.0-450.0) 12/23/17 06:00 Plt Count Comment Adequate (ADEQUATE) 12/22/17 06:10 MPV 8.4 fL (7.4-11.0) 12/23/17 06:00 Neut % 78.4 % (42.0-75.0) H 12/23/17 06:00 Lymph % 12.8 % (21.0-51.0) L 12/23/17 06:00 [place] % 8.6 % (0.0-13.0) 12/23/17 06:00 Eos % 0.1 % (0.9-2.9) L 12/23/17 06:00 Baso % 0.1 % (0.2-1.0) L 12/23/17 06:00 Neut # 8.9 x10^3/uL (2.2-4.8) H 12/23/17 06:00 Lymph # 1.5 X10^3/uL (1.3-2.9) 12/23/17 06:00 [place] # 1.0 x10^3/uL (0.3-0.8) H 12/23/17 06:00 Eos # 0.0 x10^3/uL (0.0-0.2) 12/23/17 06:00 Baso # 0.0 X10^3/uL (0.0-0.1) 12/23/17 06:00 Absolute Nucleated RBC 0.0 /100WBC 12/23/17 06:00 Total Counted 100 12/22/17 06:10 Neutrophils % (Manual) 92 % (39-76) H 12/22/17 06:10 Lymphocytes % (Manual) 5 % (13-43) L 12/22/17 06:10 Monocytes % (Manual) 3 % (4-9) L 12/22/17 06:10 Plt Morphology Comment Normal (NORMAL) 12/22/17 06:10 RBC Morphology Normal (NORMAL) 12/22/17 06:10 INR Target Range - 12/21/17 14:10 INR 1.20 (0.8-1.3) 12/21/17 14:10 Sodium 132 mmol/L (136-145) L 12/23/17 06:00 Corrected Sodium 135 mmol/L (136-145) L 12/23/17 06:00 Potassium 3.6 mmol/L (3.5-5.1) 12/23/17 06:00 Chloride 100 mmol/L (98-107) 12/23/17 06:00 Carbon Dioxide 23.0 mmol/L (21-32) 12/23/17 06:00 BUN 23 mg/dL (7-18) H 12/23/17 06:00 Creatinine 1.03 mg/dL (0.55-1.02) H 12/23/17 06:00 Est GFR (MDRD) Af Amer > 60 (>60) 12/23/17 06:00 Est GFR (MDRD) Non-Af 55 (>60) L 12/23/17 06:00 Glucose 213 mg/dL (65-99) H 12/23/17 06:00 Lactic Acid 1.2 mmol/L (0.4-2.0) 12/21/17 14:10 Calcium 7.8 mg/dL (8.5-10.1) L 12/23/17 06:00 Corrected Calcium 9.7 mg/dL (8.5-10.1) 12/23/17 06:00 Magnesium 1.7 mg/dL (1.7-2.9) 12/20/17 05:30 Total Bilirubin 1.30 mg/dL (0.2-1.0) H 12/23/17 06:00 AST 14 Units/L (15-37) L 12/23/17 06:00 ALT 12 Units/L (12-78) 12/23/17 06:00 Alkaline Phosphatase 42 Units/L (46-116) L 12/23/17 06:00 Creatine Kinase 46 Units/L (26-192) 12/19/17 20:00 CK-MB (CK-2) 1.0 ng/mL (0-4.0) 12/19/17 20:00 CK/CKMB % Calc 2.2 % (<4) 12/19/17 20:00 Troponin I < 0.02 ng/mL (0-1.5) 12/19/17 20:00 Total Protein 5.0 g/dL (6.4-8.2) L 12/23/17 06:00 Albumin 1.6 g/dL (3.4-5.0) L 12/23/17 06:00 Globulin 3.4 g/dL (2.5-4.5) 12/23/17 06:00 Albumin/Globulin Ratio 0.5 Ratio (1.1-2.1) L 12/23/17 06:00 Prealbumin 9.7 mg/dL (18-35.7) L 12/23/17 06:00 Specimen Type Catherized urine 12/23/17 06:11 Urine Color Dark yellow (YELLOW) 12/23/17 06:11 Urine Appearance Slightly hazy (CLEAR) 12/23/17 06:11 Urine pH 5.0 (5.0 - 8.0) 12/23/17 06:11 Ur Specific [place] 1.025 (1.000-1.030) 12/23/17 06:11 Urine Protein 2+ (NEGATIVE) 12/23/17 06:11 Urine Glucose (UA) 1+ (NEGATIVE) 12/23/17 06:11 Urine Ketones Negative (NEGATIVE) 12/23/17 06:11 Urine Occult Blood 3+ (NEGATIVE) 12/23/17 06:11 Urine Nitrite Negative (NEGATIVE) 12/23/17 06:11 Urine Bilirubin 1+ (NEGATIVE) 12/23/17 06:11 Urine Urobilinogen 1+ (NORMAL) 12/23/17 06:11 Ur Leukocyte Esterase 1+ (NEGATIVE) 12/23/17 06:11 Urine RBC 5-10 /HPF (NEGATIVE) 12/23/17 06:11 Urine WBC 2-6 /HPF (NEGATIVE) 12/23/17 06:11 Ur Squamous Epith Cells Rare /HPF (NEGATIVE) 12/23/17 06:11 Urine Bacteria 2+ /HPF (NEGATIVE) 12/23/17 06:11 Urine Mucus Rare /HPF (NEGATIVE) 12/19/17 15:30 Ur Culture Indicated? Yes/culture set up 12/23/17 06:11 Gastric Occult Blood Positive (NEGATIVE) A 12/20/17 06:20 Stool pH 5 12/20/17 06:20 Influenza Type A (PCR) Negative (NEGATIVE) 12/19/17 12:17 Influenza Type B (PCR) Negative (NEGATIVE) 12/19/17 12:17 Tissue Pathology To follow 12/22/17 13:41 Blood Type O POSITIVE 12/22/17 11:55 Antibody Screen Negative 12/22/17 11:55 - Plan (1) Intractable nausea and vomiting Status: Acute Qualifiers: Vomiting type: unspecified Qualified Code(s): R11.2 - Nausea with vomiting , unspecified Plan: ZOFRAN COCKTAIL IV Q8H PRN, PEPCID 20MG IV Q12H, PROTONIX 40MG IV BID, CONTINUE TO MONITOR (2) Abdominal pain Status: Acute Qualifiers: Abdominal location: lower abdomen, unspecified Qualified Code(s): R10.30 - Lower abdominal pain, unspecified Plan: EXPLORATORY LAPAROTOMY, MORPHINE 2-4MG IV Q4H PRN PAIN, CONTINUE TO MONITOR (3) Ileus Status: Acute Plan: CIPRO 400MG IV Q12H, ZOFRAN COCKTAIL, CONTINUE TO MONITOR (4) Hypertension Status: Acute Qualifiers: Hypertension type: essential hypertension Qualified Code(s): I10 - Essential (primary) hypertension Plan: LABETALOL PROTOCOL, CONTINUE COZAAR, CONTINUE TO MONITOR (5) Hypothyroidism Status: Acute Qualifiers: Hypothyroidism type: acquired Qualified Code(s): E03.9 - Hypothyroidism, unspecified Plan: CONTINUE SYNTHROID, CONTINUE TO MONITOR
[2017-12-24] MEDS: MORPHINE SULFATE INJ 2 MG INJ IVP PRN ×3 (01:45→23:25)
[2017-12-24] MEDS: D5 1/2 NS 1000 ML 1,000 ML IV SCH ×3 (06:15→20:22)
[2017-12-24] MEDS: ZOSYN VIAL 3.375 GM 3.375 GM in NS 100 ML IV + SPIKE MINIBAG* 100 ML IV SCH ×3 (06:20→22:35)
[2017-12-24 06:31] LABS: BASOPHILS % (AUTO) 0.1 % (0.2-1.0); EOSINOPHILS # (AUTO) 0.3 x10^3/uL (0.0-0.2); EOSINOPHILS % (AUTO) 2.5 % (0.9-2.9); HEMATOCRIT 34.1 % (36.0-47.0); HEMOGLOBIN 11.7 g/dL (12.0-16.0); LYMPHOCYTES # (AUTO) 1.3 X10^3/uL (1.3-2.9); LYMPHOCYTES % (AUTO) 12.4 % (21.0-51.0); MEAN CORPUSCULAR HEMOGLOBIN 29.4 pg (27.0-34.0); MEAN CORPUSCULAR HGB CONC 34.3 g/dL (33.0-35.0); MEAN CORPUSCULAR VOLUME 85.7 fL (80.0-100.0); MEAN PLATELET VOLUME 7.9 fL (7.4-11.0); MONOCYTES # (AUTO) 0.8 x10^3/uL (0.3-0.8); MONOCYTES % (AUTO) 7.6 % (0.0-13.0); NEUTROPHILS # (AUTO) 8.3 x10^3/uL (2.2-4.8); NEUTROPHILS % (AUTO) 77.4 % (42.0-75.0); PLATELET COUNT 214 X10^3/uL (150.0-450.0); RED BLOOD COUNT 3.97 X10^6/uL (3.5-5.4); RED CELL DISTRIBUTION WIDTH 13.7 % (11.6-16.5); WHITE BLOOD COUNT 10.7 X10^3/uL (3.6-10.0)
[2017-12-24 06:40] LABS: ALANINE AMINOTRANSFERASE 11 Units/L (12-78); ALBUMIN 1.9 g/dL (3.4-5.0); ALKALINE PHOSPHATASE 39 Units/L (46-116); ASPARTATE AMINO TRANSFERASE 10 Units/L (15-37); BLOOD UREA NITROGEN 11 mg/dL (7-18); CALCIUM 7.6 mg/dL (8.5-10.1); CARBON DIOXIDE 29.8 mmol/L (21-32); CHLORIDE 98 mmol/L (98-107); COR CA(FOR HYPOALB) 9.3 mg/dL (8.5-10.1); COR NA(FOR HYPERGLY) 135 mmol/L (136-145); CREATININE 0.75 mg/dL (0.55-1.02); SODIUM 134 mmol/L (136-145); eGFR BLACK RACES > 60 (>60); eGFR NON BLACK RACES > 60 (>60)
[2017-12-24] MEDS: CIPRO IV 400 MG PREMIX* 400 MG/200 ML IV.SOLN. IV SCH ×2 (09:37→21:42)
[2017-12-24] MEDS: ALBUMIN HUMAN 25%- 100ML 100 ML IV SCH (09:37)
[2017-12-24] MEDS: PEPCID 20 MG IV PREMIX* 20 MG/50 ML BAG IV SCH ×2 (09:39→21:25)
[2017-12-24] MEDS: PROTONIX INJ 40 MG VIAL IVP SCH ×2 (09:39→21:27)
[2017-12-24] MEDS: LOVENOX INJ 40 MG SYR SC SCH (09:39)
[2017-12-24] MEDS: SYNTHROID 75 mcg TAB PO SCH (09:41)
[2017-12-24] MEDS: COZAAR PO SCH ×2 (09:42→21:20)
[2017-12-24] MEDS: ESTRACE PO SCH (09:42)
[2017-12-24] MEDS: PROCALAMINE 3 % 1,000 ML IV SCH (11:31)
--- NOTE | 2017-12-24 12:03 | PCM.PROG ---
Progress Note - Progress Note for Day of Date: 12/24/17 - Subjective Subjective: P/O day 2. s/p exploratory laparatomy and modefied Hartmon's procedure for acute ruptured diverticulitis . slow improvement with good urie output . still confused and disoriented .. K is low today - Past Medical Family Social History Past Med/Fam/Surg Hx: No changes since H&P Allergies: Allergies Iodine and Iodide Containing Produc Allergy (Verified 12/21/17 18:53) Penicillins Allergy (Verified 12/19/17 11:52) Sulfa (Sulfonamide Antibiotics) [SULFA] Allergy (Verified 12/21/17 11:36) niacin Adverse Reaction (Verified 12/21/17 11:35) - Review of Systems ROS: No change since H&P - Vital Signs and I&O's Vital Signs: Temperature 98.2 F Pulse Rate [Apical] 88 Pulse Rate 105 Respiratory Rate 25 Blood Pressure [Left Arm] 152/74 Blood Pressure [Right Arm] 174/88 Blood Pressure 118/68 O2 Sat by Pulse Oximetry 97 Intake and Output: Intake & Output 12/21/17 12/22/17 12/23/17 12/24/17 11:59 11:59 11:59 11:59 Intake Total 2872 2330 5865 5023 Output Total 713 302 9495 5060 Balance 2432 2030 3223 -37 - Physical Exam Oriented: Not Oriented (to time and place ) Eyes: Normal. negative: Blurred Vision, Diplopia, Discharge, Pain, Redness, Photophobia, Other Ear: Normal. negative: Right, Left, Swelling, Ecchymosis, Hemotypanum, Abrasion , Laceration Nose: Normal. negative: Injected, Discharge, Blood, Other Throat: Normal. negative: Tonsillar Hypertrophy, Red, Exudate, Dry, Other Respiratory: Normal Cardiovascular: Normal. negative: S3, S4, Murmur : Normal. negative: Dysuria, Hematuria, Frequency, Discharge, Testicular Pain , Bleeding, , Other Auscultation: Bowel Sounds: Decreased Tenderness: Diffuse, Moderate, Other (generalized tenderness with hypoactive BS) . negative: Rebound, Rigidity Skin: Normal Musculoskeletal: Normal Psychiatric: Normal Mood Description: Calm Affect: Normal Speech Pattern: Clear - Laboratory and Diagnostics Result Diagrams: 12/24/17 06:16 12/24/17 06:16 Labs: 12/22/17 13:41 Abdomen Gram Stain - Final 12/22/17 13:41 Abdomen Wound Culture - Preliminary 12/22/17 13:41 Peritoneal Fluid Gram Stain - Final 12/22/17 13:41 Peritoneal Fluid Wound Culture - Final Escherichia Coli Laboratory WBC 10.7 X10^3/uL (3.6-10.0) H 12/24/17 06:16 RBC 3.97 X10^6/uL (3.5-5.4) 12/24/17 06:16 Hgb 11.7 g/dL (12.0-16.0) L 12/24/17 06:16 Hct 34.1 % (36.0-47.0) L 12/24/17 06:16 MCV 85.7 fL (80.0-100.0) 12/24/17 06:16 MCH 29.4 pg (27.0-34.0) 12/24/17 06:16 MCHC 34.3 g/dL (33.0-35.0) 12/24/17 06:16 RDW 13.7 % (11.6-16.5) 12/24/17 06:16 Plt Count 214 X10^3/uL (150.0-450.0) 12/24/17 06:16 Plt Count Comment Adequate (ADEQUATE) 12/22/17 06:10 MPV 7.9 fL (7.4-11.0) 12/24/17 06:16 Neut % 77.4 % (42.0-75.0) H 12/24/17 06:16 Lymph % 12.4 % (21.0-51.0) L 12/24/17 06:16 [place] % 7.6 % (0.0-13.0) 12/24/17 06:16 Eos % 2.5 % (0.9-2.9) 12/24/17 06:16 Baso % 0.1 % (0.2-1.0) L 12/24/17 06:16 Neut # 8.3 x10^3/uL (2.2-4.8) H 12/24/17 06:16 Lymph # 1.3 X10^3/uL (1.3-2.9) 12/24/17 06:16 [place] # 0.8 x10^3/uL (0.3-0.8) 12/24/17 06:16 Eos # 0.3 x10^3/uL (0.0-0.2) H 12/24/17 06:16 Baso # 0.0 X10^3/uL (0.0-0.1) 12/24/17 06:16 Absolute Nucleated RBC 0.0 /100WBC 12/24/17 06:16 Total Counted 100 12/22/17 06:10 Neutrophils % (Manual) 92 % (39-76) H 12/22/17 06:10 Lymphocytes % (Manual) 5 % (13-43) L 12/22/17 06:10 Monocytes % (Manual) 3 % (4-9) L 12/22/17 06:10 Plt Morphology Comment Normal (NORMAL) 12/22/17 06:10 RBC Morphology Normal (NORMAL) 12/22/17 06:10 INR Target Range - 12/21/17 14:10 INR 1.20 (0.8-1.3) 12/21/17 14:10 Sodium 134 mmol/L (136-145) L 12/24/17 06:16 Corrected Sodium 135 mmol/L (136-145) L 12/24/17 06:16 Potassium 2.7 mmol/L (3.5-5.1) L* 12/24/17 06:16 Chloride 98 mmol/L (98-107) 12/24/17 06:16 Carbon Dioxide 29.8 mmol/L (21-32) 12/24/17 06:16 BUN 11 mg/dL (7-18) 12/24/17 06:16 Creatinine 0.75 mg/dL (0.55-1.02) 12/24/17 06:16 Est GFR (MDRD) Af Amer > 60 (>60) 12/24/17 06:16 Est GFR (MDRD) Non-Af > 60 (>60) 12/24/17 06:16 Glucose 150 mg/dL (65-99) H 12/24/17 06:16 Lactic Acid 1.2 mmol/L (0.4-2.0) 12/21/17 14:10 Calcium 7.6 mg/dL (8.5-10.1) L 12/24/17 06:16 Corrected Calcium 9.3 mg/dL (8.5-10.1) 12/24/17 06:16 Magnesium 1.7 mg/dL (1.7-2.9) 12/20/17 05:30 Total Bilirubin 0.90 mg/dL (0.2-1.0) 12/24/17 06:16 AST 10 Units/L (15-37) L 12/24/17 06:16 ALT 11 Units/L (12-78) L 12/24/17 06:16 Alkaline Phosphatase 39 Units/L (46-116) L 12/24/17 06:16 Creatine Kinase 46 Units/L (26-192) 12/19/17 20:00 CK-MB (CK-2) 1.0 ng/mL (0-4.0) 12/19/17 20:00 CK/CKMB % Calc 2.2 % (<4) 12/19/17 20:00 Troponin I < 0.02 ng/mL (0-1.5) 12/19/17 20:00 Total Protein 5.0 g/dL (6.4-8.2) L 12/24/17 06:16 Albumin 1.9 g/dL (3.4-5.0) L 12/24/17 06:16 Globulin 3.1 g/dL (2.5-4.5) 12/24/17 06:16 Albumin/Globulin Ratio 0.6 Ratio (1.1-2.1) L 12/24/17 06:16 Prealbumin 9.7 mg/dL (18-35.7) L 12/23/17 06:00 Specimen Type Catherized urine 12/23/17 06:11 Urine Color Dark yellow (YELLOW) 12/23/17 06:11 Urine Appearance Slightly hazy (CLEAR) 12/23/17 06:11 Urine pH 5.0 (5.0 - 8.0) 12/23/17 06:11 Ur Specific [place] 1.025 (1.000-1.030) 12/23/17 06:11 Urine Protein 2+ (NEGATIVE) 12/23/17 06:11 Urine Glucose (UA) 1+ (NEGATIVE) 12/23/17 06:11 Urine Ketones Negative (NEGATIVE) 12/23/17 06:11 Urine Occult Blood 3+ (NEGATIVE) 12/23/17 06:11 Urine Nitrite Negative (NEGATIVE) 12/23/17 06:11 Urine Bilirubin 1+ (NEGATIVE) 12/23/17 06:11 Urine Urobilinogen 1+ (NORMAL) 12/23/17 06:11 Ur Leukocyte Esterase 1+ (NEGATIVE) 12/23/17 06:11 Urine RBC 5-10 /HPF (NEGATIVE) 12/23/17 06:11 Urine WBC 2-6 /HPF (NEGATIVE) 12/23/17 06:11 Ur Squamous Epith Cells Rare /HPF (NEGATIVE) 12/23/17 06:11 Urine Bacteria 2+ /HPF (NEGATIVE) 12/23/17 06:11 Urine Mucus Rare /HPF (NEGATIVE) 12/19/17 15:30 Ur Culture Indicated? Yes/culture set up 12/23/17 06:11 Gastric Occult Blood Positive (NEGATIVE) A 12/20/17 06:20 Stool pH 5 12/20/17 06:20 Influenza Type A (PCR) Negative (NEGATIVE) 12/19/17 12:17 Influenza Type B (PCR) Negative (NEGATIVE) 12/19/17 12:17 Tissue Pathology To follow 12/22/17 13:41 Blood Type O POSITIVE 12/22/17 11:55 Antibody Screen Negative 12/22/17 11:55 - Plan (1) Diverticulitis large intestine Status: Acute (2) Diverticulitis of large intestine with perforation Status: Acute (3) Peritonitis (acute) generalized Status: Acute Plan: on IV ATB. increase IVF with added Albumin and small dose of Lasix. DVT prophylaxis . OOB and PT. pulmonary care . started on clear liquid today.
[2017-12-24] MEDS ORDERED: ZOFRAN INJ 4 MG VIAL ONE (12:48)
[2017-12-24] MEDS: ZOFRAN INJ 4 MG VIAL IVP PRN ×2 (13:13→20:22)
[2017-12-24] MEDS ORDERED: ZOFRAN INJ 4 MG VIAL IVP PRN (20:38)
[2017-12-25] MEDS: D5 1/2 NS 1000 ML 1,000 ML IV SCH ×3 (02:10→19:40)
[2017-12-25] MEDS: ZOSYN VIAL 3.375 GM 3.375 GM in NS 100 ML IV + SPIKE MINIBAG* 100 ML IV SCH (06:11)
[2017-12-25 06:34] LABS: BASOPHILS % (AUTO) 0.2 % (0.2-1.0); EOSINOPHILS # (AUTO) 0.3 x10^3/uL (0.0-0.2); EOSINOPHILS % (AUTO) 2.6 % (0.9-2.9); HEMATOCRIT 33.2 % (36.0-47.0); HEMOGLOBIN 11.6 g/dL (12.0-16.0); LYMPHOCYTES # (AUTO) 0.9 X10^3/uL (1.3-2.9); LYMPHOCYTES % (AUTO) 8.3 % (21.0-51.0); MEAN CORPUSCULAR HEMOGLOBIN 29.8 pg (27.0-34.0); MEAN CORPUSCULAR HGB CONC 34.8 g/dL (33.0-35.0); MEAN CORPUSCULAR VOLUME 85.4 fL (80.0-100.0); MEAN PLATELET VOLUME 8.2 fL (7.4-11.0); MONOCYTES # (AUTO) 0.7 x10^3/uL (0.3-0.8); MONOCYTES % (AUTO) 6.1 % (0.0-13.0); NEUTROPHILS # (AUTO) 9.2 x10^3/uL (2.2-4.8); NEUTROPHILS % (AUTO) 82.8 % (42.0-75.0); PLATELET COUNT 245 X10^3/uL (150.0-450.0); RED BLOOD COUNT 3.89 X10^6/uL (3.5-5.4); RED CELL DISTRIBUTION WIDTH 13.7 % (11.6-16.5); WHITE BLOOD COUNT 11.1 X10^3/uL (3.6-10.0)
[2017-12-25 07:22] LABS: ALANINE AMINOTRANSFERASE 10 Units/L (12-78); ALBUMIN 1.7 g/dL (3.4-5.0); ALKALINE PHOSPHATASE 68 Units/L (46-116); ASPARTATE AMINO TRANSFERASE 9 Units/L (15-37); BLOOD UREA NITROGEN 13 mg/dL (7-18); CALCIUM 7.3 mg/dL (8.5-10.1); CARBON DIOXIDE 24.9 mmol/L (21-32); CHLORIDE 97 mmol/L (98-107); COR CA(FOR HYPOALB) 9.1 mg/dL (8.5-10.1); COR NA(FOR HYPERGLY) 132 mmol/L (136-145); CREATININE 0.69 mg/dL (0.55-1.02); SODIUM 131 mmol/L (136-145); TOTAL PROTEIN 4.8 g/dL (6.4-8.2); eGFR BLACK RACES > 60 (>60); eGFR NON BLACK RACES > 60 (>60)
[2017-12-25] MEDS: LOVENOX INJ 40 MG SYR SC SCH (09:31)
[2017-12-25] MEDS: PEPCID 20 MG IV PREMIX* 20 MG/50 ML BAG IV SCH (09:31)
[2017-12-25] MEDS: PROTONIX INJ 40 MG VIAL IVP SCH ×2 (09:32→21:23)
[2017-12-25] MEDS: COZAAR PO SCH ×2 (09:34→21:22)
[2017-12-25] MEDS: SYNTHROID 75 mcg TAB PO SCH (09:34)
[2017-12-25] MEDS: ESTRACE PO SCH (09:34)
[2017-12-25] MEDS: ZOFRAN INJ 4 MG VIAL IVP PRN (09:50)
[2017-12-25] MEDS: CIPRO IV 400 MG PREMIX* 400 MG/200 ML IV.SOLN. IV SCH (10:11)
--- NOTE | 2017-12-25 11:15 | PCM.PROG ---
Progress Note - Progress Note for Day of Date: 12/25/17 - Subjective Subjective: P/O day 3. s/p exploratory laparatomy and modefied Hartmon's procedure for acute ruptured diverticulitis . slow improvement with good urine output . more alert and oriented .. K and albumin are low today. abdominal culture is E Coli resistent to cipro and Levaquin . 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 - Past Medical Family Social History Past Med/Fam/Surg Hx: No changes since H&P Allergies: Allergies Iodine and Iodide Containing Produc Allergy (Verified 12/21/17 18:53) Penicillins Allergy (Verified 12/19/17 11:52) Sulfa (Sulfonamide Antibiotics) [SULFA] Allergy (Verified 12/21/17 11:36) niacin Adverse Reaction (Verified 12/21/17 11:35) - Review of Systems ROS: No change since H&P - Vital Signs and I&O's Vital Signs: Temperature 97.8 F Pulse Rate [Apical] 77 Pulse Rate 88 Respiratory Rate 21 Blood Pressure [Left Arm] 150/90 Blood Pressure [Right Arm] 174/88 Blood Pressure 118/68 O2 Sat by Pulse Oximetry 98 Intake and Output: Intake & Output 12/22/17 12/23/17 12/24/17 12/25/17 11:59 11:59 11:59 11:59 Intake Total 2330 5865 5023 4730 Output Total 300 2642 5060 1870 Balance 2030 3223 -37 2860 - Physical Exam Oriented: Not Oriented (more alert today ) Eyes: Normal. negative: Blurred Vision, Diplopia, Discharge, Pain, Redness, Photophobia, Other Ear: Normal. negative: Right, Left, Swelling, Ecchymosis, Hemotypanum, Abrasion , Laceration Nose: Normal. negative: Injected, Discharge, Blood, Other Throat: Normal. negative: Tonsillar Hypertrophy, Red, Exudate, Dry, Other Respiratory: Normal Cardiovascular: Normal. negative: S3, S4, Murmur : Normal. negative: Dysuria, Hematuria, Frequency, Discharge, Testicular Pain , Bleeding, , Other Auscultation: Bowel Sounds: Decreased Tenderness: Diffuse, Moderate, Other (generalized tenderness with hypoactive BS) . negative: Rebound, Rigidity Skin: Normal Musculoskeletal: Normal Psychiatric: Normal Mood Description: Calm Affect: Normal Speech Pattern: Clear - Laboratory and Diagnostics Result Diagrams: 12/25/17 05:20 12/25/17 05:20 Labs: 12/23/17 06:11 Urine,Catheterized Urine Culture - Final 12/22/17 13:41 Abdomen Gram Stain - Final 12/22/17 13:41 Abdomen Wound Culture - Preliminary 12/22/17 13:41 Peritoneal Fluid Gram Stain - Final 12/22/17 13:41 Peritoneal Fluid Wound Culture - Final Escherichia Coli Laboratory WBC 11.1 X10^3/uL (3.6-10.0) H 12/25/17 05:20 RBC 3.89 X10^6/uL (3.5-5.4) 12/25/17 05:20 Hgb 11.6 g/dL (12.0-16.0) L 12/25/17 05:20 Hct 33.2 % (36.0-47.0) L 12/25/17 05:20 MCV 85.4 fL (80.0-100.0) 12/25/17 05:20 MCH 29.8 pg (27.0-34.0) 12/25/17 05:20 MCHC 34.8 g/dL (33.0-35.0) 12/25/17 05:20 RDW 13.7 % (11.6-16.5) 12/25/17 05:20 Plt Count 245 X10^3/uL (150.0-450.0) 12/25/17 05:20 Plt Count Comment Adequate (ADEQUATE) 12/22/17 06:10 MPV 8.2 fL (7.4-11.0) 12/25/17 05:20 Neut % 82.8 % (42.0-75.0) H 12/25/17 05:20 Lymph % 8.3 % (21.0-51.0) L 12/25/17 05:20 [place] % 6.1 % (0.0-13.0) 12/25/17 05:20 Eos % 2.6 % (0.9-2.9) 12/25/17 05:20 Baso % 0.2 % (0.2-1.0) 12/25/17 05:20 Neut # 9.2 x10^3/uL (2.2-4.8) H 12/25/17 05:20 Lymph # 0.9 X10^3/uL (1.3-2.9) L 12/25/17 05:20 [place] # 0.7 x10^3/uL (0.3-0.8) 12/25/17 05:20 Eos # 0.3 x10^3/uL (0.0-0.2) H 12/25/17 05:20 Baso # 0.0 X10^3/uL (0.0-0.1) 12/25/17 05:20 Absolute Nucleated RBC 0.0 /100WBC 12/25/17 05:20 Total Counted 100 12/22/17 06:10 Neutrophils % (Manual) 92 % (39-76) H 12/22/17 06:10 Lymphocytes % (Manual) 5 % (13-43) L 12/22/17 06:10 Monocytes % (Manual) 3 % (4-9) L 12/22/17 06:10 Plt Morphology Comment Normal (NORMAL) 12/22/17 06:10 RBC Morphology Normal (NORMAL) 12/22/17 06:10 INR Target Range - 12/21/17 14:10 INR 1.20 (0.8-1.3) 12/21/17 14:10 Sodium 131 mmol/L (136-145) L 12/25/17 05:20 Corrected Sodium 132 mmol/L (136-145) L 12/25/17 05:20 Potassium 3.3 mmol/L (3.5-5.1) L 12/25/17 05:20 Chloride 97 mmol/L (98-107) L 12/25/17 05:20 Carbon Dioxide 24.9 mmol/L (21-32) 12/25/17 05:20 BUN 13 mg/dL (7-18) 12/25/17 05:20 Creatinine 0.69 mg/dL (0.55-1.02) 12/25/17 05:20 Est GFR (MDRD) Af Amer > 60 (>60) 12/25/17 05:20 Est GFR (MDRD) Non-Af > 60 (>60) 12/25/17 05:20 Glucose 151 mg/dL (65-99) H 12/25/17 05:20 Lactic Acid 1.2 mmol/L (0.4-2.0) 12/21/17 14:10 Calcium 7.3 mg/dL (8.5-10.1) L 12/25/17 05:20 Corrected Calcium 9.1 mg/dL (8.5-10.1) 12/25/17 05:20 Magnesium 1.7 mg/dL (1.7-2.9) 12/20/17 05:30 Total Bilirubin 0.80 mg/dL (0.2-1.0) 12/25/17 05:20 AST 9 Units/L (15-37) L 12/25/17 05:20 ALT 10 Units/L (12-78) L 12/25/17 05:20 Alkaline Phosphatase 68 Units/L (46-116) 12/25/17 05:20 Creatine Kinase 46 Units/L (26-192) 12/19/17 20:00 CK-MB (CK-2) 1.0 ng/mL (0-4.0) 12/19/17 20:00 CK/CKMB % Calc 2.2 % (<4) 12/19/17 20:00 Troponin I < 0.02 ng/mL (0-1.5) 12/19/17 20:00 Total Protein 4.8 g/dL (6.4-8.2) L 12/25/17 05:20 Albumin 1.7 g/dL (3.4-5.0) L 12/25/17 05:20 Globulin 3.1 g/dL (2.5-4.5) 12/25/17 05:20 Albumin/Globulin Ratio 0.5 Ratio (1.1-2.1) L 12/25/17 05:20 Prealbumin 9.7 mg/dL (18-35.7) L 12/23/17 06:00 Specimen Type Catherized urine 12/23/17 06:11 Urine Color Dark yellow (YELLOW) 12/23/17 06:11 Urine Appearance Slightly hazy (CLEAR) 12/23/17 06:11 Urine pH 5.0 (5.0 - 8.0) 12/23/17 06:11 Ur Specific [place] 1.025 (1.000-1.030) 12/23/17 06:11 Urine Protein 2+ (NEGATIVE) 12/23/17 06:11 Urine Glucose (UA) 1+ (NEGATIVE) 12/23/17 06:11 Urine Ketones Negative (NEGATIVE) 12/23/17 06:11 Urine Occult Blood 3+ (NEGATIVE) 12/23/17 06:11 Urine Nitrite Negative (NEGATIVE) 12/23/17 06:11 Urine Bilirubin 1+ (NEGATIVE) 12/23/17 06:11 Urine Urobilinogen 1+ (NORMAL) 12/23/17 06:11 Ur Leukocyte Esterase 1+ (NEGATIVE) 12/23/17 06:11 Urine RBC 5-10 /HPF (NEGATIVE) 12/23/17 06:11 Urine WBC 2-6 /HPF (NEGATIVE) 12/23/17 06:11 Ur Squamous Epith Cells Rare /HPF (NEGATIVE) 12/23/17 06:11 Urine Bacteria 2+ /HPF (NEGATIVE) 12/23/17 06:11 Urine Mucus Rare /HPF (NEGATIVE) 12/19/17 15:30 Ur Culture Indicated? Yes/culture set up 12/23/17 06:11 Gastric Occult Blood Positive (NEGATIVE) A 12/20/17 06:20 Stool pH 5 12/20/17 06:20 Influenza Type A (PCR) Negative (NEGATIVE) 12/19/17 12:17 Influenza Type B (PCR) Negative (NEGATIVE) 12/19/17 12:17 Tissue Pathology To follow 12/22/17 13:41 Blood Type O POSITIVE 12/22/17 11:55 Antibody Screen Negative 12/22/17 11:55 - Plan (1) Diverticulitis large intestine Status: Acute (2) Diverticulitis of large intestine with perforation Status: Acute (3) Peritonitis (acute) generalized Status: Acute Plan: on IV ATB ..D/C Cipro ..( resistent to it ). IVF with added Albumin and KCL. DVT prophylaxis . OOB and PT. pulmonary care . started on full liquid today. PT, OT. DON was removed ..
[2017-12-25] MEDS: ALBUMIN HUMAN 25%- 100ML 100 ML IV SCH (11:28)
[2017-12-25] MEDS ORDERED: PEPCID 20 MG IV PREMIX* 20 MG/50 ML BAG IV SCH (11:40)
--- NOTE | 2017-12-25 12:53 | PCM.PROG ---
Progress Note - Progress Note for Day of Date: 12/23/17 - Subjective Subjective: WAS A DIRECT ADMISSION FOR INTRACTABLE NAUSEA AND VOMITING , DEHYDRATION, AND ABDOMINAL PAIN. ABDOMINAL CT REVEALED A PNEUMOPERITONEUM. SHE WAS TAKEN TO THE OR YESTERDAY BY FOR AN EXPLORATORY LAPAROTOMY. SHE WAS FOUND TO HAVE AN ACUTE PERFORATED MID SIGMOID DIVERTICULITIS WITH PERITONITIS AND ABDOMINAL ADHESIONS INVOLVING THE MID ABDOMEN AND PELVIS FROM PREVIOUS HYSTERECTOMY. A COLON RESECTION WAS PERFORMED AND COLON BROUGHT OUT AN END COLOSTOMY IN THE LEFT LOWER QUADRANT. A DON DRAIN WAS PUT IN PLACE TO THE RIGHT LOWER QUADRANT. ABDOMEN WAS THOROUGHLY IRRIGATED. TODAY, SHE IS LYING IN BED WITH EYES CLOSED ON MORNING ROUNDS. PATIENTS FAMILY IS AT BEDSIDE. SHE AWAKENS TO VERBAL STIMULI. SHE IS NOTED WITH COMPLAINTS OF ABDOMINAL TENDERNESS. ON EXAMINATION, HEART IS REGULAR IN RATE AND RHYTHM. BIALTERAL LUNGS ARE NOTED TO BE CLEAR TO AUSCULTATION. ABDOMEN IS ROUND, SOFT, AND NOTED WITH MODERATE, DIFFUSE TENDERNESS. HYPOACTIVE BOWEL SOUNDS ARE NOTED IN ALL QUADRANTS. THERE IS A COLOSTOMY NOTED TO THE LEFT LOWER QUADRANT. NO STOOL NOTED IN BAG AT THIS TIME. STOMA IS PINK. NO SIGNS OR SX INFECTION NOTED. HER VITALS THIS MORNING ARE 99.0-91-23-96%-128/67. LABS WERE OBTAINED. ABNORMAL LAB VALUES INCLUDE THE FOLLOWING: WBC11.4, SODIUM 132, BUN 23, CREATININE 1.03, GLUCOSE 213, CALCIUM 7.8, TOTAL BILI 1.30, AST 14, ALK PHOS 42, TOTAL PROTEIN 5.0, ALBUMIN 1.6. TODAY, WE WILL START PERIPHERAL TPN AND ALBUMIN 25% IV DAILY. OTHERWISE, WE WILL CONTINUE WITH CURRENT PLAN OF CARE. WE WILL FOLLOW UP WITH AM LABS AND CONTINUE TO MONITOR PATIENT. - Past Medical Family Social History Past Med/Fam/Surg Hx: No changes since H&P Allergies: Allergies Iodine and Iodide Containing Produc Allergy (Verified 12/21/17 18:53) Penicillins Allergy (Verified 12/19/17 11:52) Sulfa (Sulfonamide Antibiotics) [SULFA] Allergy (Verified 12/21/17 11:36) niacin Adverse Reaction (Verified 12/21/17 11:35) - Review of Systems ROS: No change since H&P - Vital Signs and I&O's Vital Signs: Temperature 97.8 F Pulse Rate [Apical] 77 Pulse Rate 88 Respiratory Rate 21 Blood Pressure [Left Arm] 150/90 Blood Pressure [Right Arm] 174/88 Blood Pressure 118/68 O2 Sat by Pulse Oximetry 98 Intake and Output: Intake & Output 12/23/17 12/24/17 12/25/17 12/26/17 11:59 11:59 11:59 11:59 Intake Total 5865 5023 4730 Output Total 2642 5060 1870 Balance 3223 -37 2860 - Physical Exam Oriented: Normal Eyes: Normal. negative: Blurred Vision, Diplopia, Discharge, Pain, Redness, Photophobia, Other Ear: Normal. negative: Right, Left, Swelling, Ecchymosis, Hemotypanum, Abrasion , Laceration Nose: Normal. negative: Injected, Discharge, Blood, Other Throat: Normal. negative: Tonsillar Hypertrophy, Red, Exudate, Dry, Other Respiratory: Normal Cardiovascular: Normal. negative: S3, S4, Murmur : Normal. negative: Dysuria, Hematuria, Frequency, Discharge, Testicular Pain , Bleeding, , Other Auscultation: Bowel Sounds: Decreased Palpation: Normal Tenderness: Diffuse, Moderate, Other (generalized tenderness with hypoactive BS) . negative: Rebound, Rigidity Skin: Normal Musculoskeletal: Normal Psychiatric: Normal Mood Description: Calm Affect: Normal Speech Pattern: Clear - Laboratory and Diagnostics Result Diagrams: 12/25/17 05:20 12/25/17 05:20 Labs: 12/22/17 13:41 Abdomen Gram Stain - Final 12/22/17 13:41 Abdomen Wound Culture - Final Escherichia Coli 12/23/17 06:11 Urine,Catheterized Urine Culture - Final 12/22/17 13:41 Peritoneal Fluid Gram Stain - Final 12/22/17 13:41 Peritoneal Fluid Wound Culture - Final Escherichia Coli Laboratory WBC 11.1 X10^3/uL (3.6-10.0) H 12/25/17 05:20 RBC 3.89 X10^6/uL (3.5-5.4) 12/25/17 05:20 Hgb 11.6 g/dL (12.0-16.0) L 12/25/17 05:20 Hct 33.2 % (36.0-47.0) L 12/25/17 05:20 MCV 85.4 fL (80.0-100.0) 12/25/17 05:20 MCH 29.8 pg (27.0-34.0) 12/25/17 05:20 MCHC 34.8 g/dL (33.0-35.0) 12/25/17 05:20 RDW 13.7 % (11.6-16.5) 12/25/17 05:20 Plt Count 245 X10^3/uL (150.0-450.0) 12/25/17 05:20 Plt Count Comment Adequate (ADEQUATE) 12/22/17 06:10 MPV 8.2 fL (7.4-11.0) 12/25/17 05:20 Neut % 82.8 % (42.0-75.0) H 12/25/17 05:20 Lymph % 8.3 % (21.0-51.0) L 12/25/17 05:20 [place] % 6.1 % (0.0-13.0) 12/25/17 05:20 Eos % 2.6 % (0.9-2.9) 12/25/17 05:20 Baso % 0.2 % (0.2-1.0) 12/25/17 05:20 Neut # 9.2 x10^3/uL (2.2-4.8) H 12/25/17 05:20 Lymph # 0.9 X10^3/uL (1.3-2.9) L 12/25/17 05:20 [place] # 0.7 x10^3/uL (0.3-0.8) 12/25/17 05:20 Eos # 0.3 x10^3/uL (0.0-0.2) H 12/25/17 05:20 Baso # 0.0 X10^3/uL (0.0-0.1) 12/25/17 05:20 Absolute Nucleated RBC 0.0 /100WBC 12/25/17 05:20 Total Counted 100 12/22/17 06:10 Neutrophils % (Manual) 92 % (39-76) H 12/22/17 06:10 Lymphocytes % (Manual) 5 % (13-43) L 12/22/17 06:10 Monocytes % (Manual) 3 % (4-9) L 12/22/17 06:10 Plt Morphology Comment Normal (NORMAL) 12/22/17 06:10 RBC Morphology Normal (NORMAL) 12/22/17 06:10 INR Target Range - 12/21/17 14:10 INR 1.20 (0.8-1.3) 12/21/17 14:10 Sodium 131 mmol/L (136-145) L 12/25/17 05:20 Corrected Sodium 132 mmol/L (136-145) L 12/25/17 05:20 Potassium 3.3 mmol/L (3.5-5.1) L 12/25/17 05:20 Chloride 97 mmol/L (98-107) L 12/25/17 05:20 Carbon Dioxide 24.9 mmol/L (21-32) 12/25/17 05:20 BUN 13 mg/dL (7-18) 12/25/17 05:20 Creatinine 0.69 mg/dL (0.55-1.02) 12/25/17 05:20 Est GFR (MDRD) Af Amer > 60 (>60) 12/25/17 05:20 Est GFR (MDRD) Non-Af > 60 (>60) 12/25/17 05:20 Glucose 151 mg/dL (65-99) H 12/25/17 05:20 Lactic Acid 1.2 mmol/L (0.4-2.0) 12/21/17 14:10 Calcium 7.3 mg/dL (8.5-10.1) L 12/25/17 05:20 Corrected Calcium 9.1 mg/dL (8.5-10.1) 12/25/17 05:20 Magnesium 1.7 mg/dL (1.7-2.9) 12/20/17 05:30 Total Bilirubin 0.80 mg/dL (0.2-1.0) 12/25/17 05:20 AST 9 Units/L (15-37) L 12/25/17 05:20 ALT 10 Units/L (12-78) L 12/25/17 05:20 Alkaline Phosphatase 68 Units/L (46-116) 12/25/17 05:20 Creatine Kinase 46 Units/L (26-192) 12/19/17 20:00 CK-MB (CK-2) 1.0 ng/mL (0-4.0) 12/19/17 20:00 CK/CKMB % Calc 2.2 % (<4) 12/19/17 20:00 Troponin I < 0.02 ng/mL (0-1.5) 12/19/17 20:00 Total Protein 4.8 g/dL (6.4-8.2) L 12/25/17 05:20 Albumin 1.7 g/dL (3.4-5.0) L 12/25/17 05:20 Globulin 3.1 g/dL (2.5-4.5) 12/25/17 05:20 Albumin/Globulin Ratio 0.5 Ratio (1.1-2.1) L 12/25/17 05:20 Prealbumin 9.7 mg/dL (18-35.7) L 12/23/17 06:00 Specimen Type Catherized urine 12/23/17 06:11 Urine Color Dark yellow (YELLOW) 12/23/17 06:11 Urine Appearance Slightly hazy (CLEAR) 12/23/17 06:11 Urine pH 5.0 (5.0 - 8.0) 12/23/17 06:11 Ur Specific [place] 1.025 (1.000-1.030) 12/23/17 06:11 Urine Protein 2+ (NEGATIVE) 12/23/17 06:11 Urine Glucose (UA) 1+ (NEGATIVE) 12/23/17 06:11 Urine Ketones Negative (NEGATIVE) 12/23/17 06:11 Urine Occult Blood 3+ (NEGATIVE) 12/23/17 06:11 Urine Nitrite Negative (NEGATIVE) 12/23/17 06:11 Urine Bilirubin 1+ (NEGATIVE) 12/23/17 06:11 Urine Urobilinogen 1+ (NORMAL) 12/23/17 06:11 Ur Leukocyte Esterase 1+ (NEGATIVE) 12/23/17 06:11 Urine RBC 5-10 /HPF (NEGATIVE) 12/23/17 06:11 Urine WBC 2-6 /HPF (NEGATIVE) 12/23/17 06:11 Ur Squamous Epith Cells Rare /HPF (NEGATIVE) 12/23/17 06:11 Urine Bacteria 2+ /HPF (NEGATIVE) 12/23/17 06:11 Urine Mucus Rare /HPF (NEGATIVE) 12/19/17 15:30 Ur Culture Indicated? Yes/culture set up 12/23/17 06:11 Gastric Occult Blood Positive (NEGATIVE) A 12/20/17 06:20 Stool pH 5 12/20/17 06:20 Influenza Type A (PCR) Negative (NEGATIVE) 12/19/17 12:17 Influenza Type B (PCR) Negative (NEGATIVE) 12/19/17 12:17 Tissue Pathology To follow 12/22/17 13:41 Blood Type O POSITIVE 12/22/17 11:55 Antibody Screen Negative 12/22/17 11:55 - Plan (1) Intractable nausea and vomiting Status: Acute Qualifiers: Vomiting type: unspecified Qualified Code(s): R11.2 - Nausea with vomiting , unspecified Plan: ZOFRAN COCKTAIL IV Q8H PRN, PEPCID 20MG IV Q12H, PROTONIX 40MG IV BID, CONTINUE TO MONITOR (2) Abdominal pain Status: Acute Qualifiers: Abdominal location: lower abdomen, unspecified Qualified Code(s): R10.30 - Lower abdominal pain, unspecified Plan: EXPLORATORY LAPAROTOMY, MORPHINE 2-4MG IV Q4H PRN PAIN, CONTINUE TO MONITOR (3) Hypertension Status: Acute Qualifiers: Hypertension type: essential hypertension Qualified Code(s): I10 - Essential (primary) hypertension Plan: LABETALOL PROTOCOL, CONTINUE COZAAR, CONTINUE TO MONITOR (4) Hypothyroidism Status: Acute Qualifiers: Hypothyroidism type: acquired Qualified Code(s): E03.9 - Hypothyroidism, unspecified Plan: CONTINUE SYNTHROID, CONTINUE TO MONITOR
[2017-12-25] MEDS: PROCALAMINE 3 % 1,000 ML IV SCH (12:58)
[2017-12-25] MEDS: FORTAZ or TAZICEF INJ 1 GM in NS 100 ML IV + SPIKE MINIBAG* 100 ML IV SCH ×3 (13:00→21:23)
[2017-12-25] MEDS: MORPHINE SULFATE INJ 2 MG INJ IVP PRN (14:18)
[2017-12-25] MEDS: ZOFRAN INJ 4 MG VIAL 16 MG, ATIVAN INJ 2 MG VIAL 1 MG, DECADRON INJ 10 MG in NS 50 ML I... IV PRN (14:19)
--- NOTE | 2017-12-25 21:02 | PCM.PROG ---
Progress Note - Progress Note for Day of Date: 12/24/17 - Subjective Subjective: WAS A DIRECT ADMISSION FOR INTRACTABLE NAUSEA AND VOMITING , DEHYDRATION, AND ABDOMINAL PAIN. SHE IS STATUS POST HARTMANS PROCEDURE FOR ACUTE RUPTURED SIGMOID DIVERTICULITIS. TODAY, SHE IS LYING IN BED WITH EYES CLOSED ON MORNING ROUNDS. PATIENTS FAMILY IS AT BEDSIDE. SHE AWAKENS TO VERBAL STIMULI. SHE IS NOTED WITH COMPLAINTS OF ABDOMINAL TENDERNESS. FAMILY REPORTS THAT PATIENT HAS HAD INTERMITTENT CONFUSION THROUGHOUT THE NIGHT. THEY FEEL THAT IT MAY BE RELATED TO THE PAIN MEDICATION. ON EXAMINATION, HEART IS REGULAR IN RATE AND RHYTHM. BIALTERAL LUNGS ARE NOTED TO BE CLEAR TO AUSCULTATION. ABDOMEN IS ROUND, SOFT, AND NOTED WITH MODERATE, DIFFUSE TENDERNESS. HYPOACTIVE BOWEL SOUNDS ARE NOTED IN ALL QUADRANTS. THERE IS A COLOSTOMY NOTED TO THE LEFT LOWER QUADRANT. SMALL NOTED IN BAG AT THIS TIME. STOMA IS PINK. NO SIGNS OR SX INFECTION NOTED. HER VITALS THIS MORNING ARE 98.2-86-21-95%-132/60. LABS WERE OBTAINED. ABNORMAL LAB VALUES INCLUDE THE FOLLOWING: WBC 10.7, HGB 11.7, HCT 34.1, SODIUM 134, POTASSIUM 2.7, GLUCOSE 150, CALCIUM 7.6, AST 10, ALT 11, ALKALINE PHOSPHATASE 39, TOTAL PROTEIN 5.1, ALBUMIN 1.9. TODAY, WE WILL HOLD PAIN MEDICATIONS UNTIL SHE IS MORE LUCID. OTHERWISE, WE WILL CONTINUE WITH CURRENT PLAN OF CARE AND HAVE PHYSICAL THERAPY SEE PATIENT. WILL CONTINUE TO SEE PATIENT AND ORDER DIET WHEN APPROPRIATE. WE WILL FOLLOW UP WITH AM LABS AND CONTINUE TO MONITOR PATIENT. - Past Medical Family Social History Past Med/Fam/Surg Hx: No changes since H&P Allergies: Allergies Iodine and Iodide Containing Produc Allergy (Verified 12/21/17 18:53) Penicillins Allergy (Verified 12/19/17 11:52) Sulfa (Sulfonamide Antibiotics) [SULFA] Allergy (Verified 12/21/17 11:36) niacin Adverse Reaction (Verified 12/21/17 11:35) - Review of Systems ROS: No change since H&P - Vital Signs and I&O's Vital Signs: Temperature 98.4 F Pulse Rate [Apical] 72 Pulse Rate 88 Respiratory Rate 18 Blood Pressure [Left Arm] 132/65 Blood Pressure [Right Arm] 121/66 Blood Pressure 118/68 O2 Sat by Pulse Oximetry 91 Intake and Output: Intake & Output 12/23/17 12/24/17 12/25/17 12/26/17 11:59 11:59 11:59 11:59 Intake Total 5865 5023 4730 1585 Output Total 2642 5060 1870 2420 Balance 3223 -37 2860 -835 - Physical Exam Oriented: Normal Eyes: Normal. negative: Blurred Vision, Diplopia, Discharge, Pain, Redness, Photophobia, Other Ear: Normal. negative: Right, Left, Swelling, Ecchymosis, Hemotypanum, Abrasion , Laceration Nose: Normal. negative: Injected, Discharge, Blood, Other Throat: Normal. negative: Tonsillar Hypertrophy, Red, Exudate, Dry, Other Respiratory: Normal Cardiovascular: Normal. negative: S3, S4, Murmur : Normal. negative: Dysuria, Hematuria, Frequency, Discharge, Testicular Pain , Bleeding, , Other Auscultation: Bowel Sounds: Decreased Palpation: Normal Tenderness: Diffuse, Moderate, Other (generalized tenderness with hypoactive BS) . negative: Rebound, Rigidity Skin: Normal Musculoskeletal: Normal Psychiatric: Normal Mood Description: Calm Affect: Normal Speech Pattern: Clear - Laboratory and Diagnostics Result Diagrams: 12/25/17 05:20 12/25/17 05:20 Labs: 12/22/17 13:41 Abdomen Gram Stain - Final 12/22/17 13:41 Abdomen Wound Culture - Final Escherichia Coli 12/23/17 06:11 Urine,Catheterized Urine Culture - Final 12/22/17 13:41 Peritoneal Fluid Gram Stain - Final 12/22/17 13:41 Peritoneal Fluid Wound Culture - Final Escherichia Coli Laboratory WBC 11.1 X10^3/uL (3.6-10.0) H 12/25/17 05:20 RBC 3.89 X10^6/uL (3.5-5.4) 12/25/17 05:20 Hgb 11.6 g/dL (12.0-16.0) L 12/25/17 05:20 Hct 33.2 % (36.0-47.0) L 12/25/17 05:20 MCV 85.4 fL (80.0-100.0) 12/25/17 05:20 MCH 29.8 pg (27.0-34.0) 12/25/17 05:20 MCHC 34.8 g/dL (33.0-35.0) 12/25/17 05:20 RDW 13.7 % (11.6-16.5) 12/25/17 05:20 Plt Count 245 X10^3/uL (150.0-450.0) 12/25/17 05:20 Plt Count Comment Adequate (ADEQUATE) 12/22/17 06:10 MPV 8.2 fL (7.4-11.0) 12/25/17 05:20 Neut % 82.8 % (42.0-75.0) H 12/25/17 05:20 Lymph % 8.3 % (21.0-51.0) L 12/25/17 05:20 [place] % 6.1 % (0.0-13.0) 12/25/17 05:20 Eos % 2.6 % (0.9-2.9) 12/25/17 05:20 Baso % 0.2 % (0.2-1.0) 12/25/17 05:20 Neut # 9.2 x10^3/uL (2.2-4.8) H 12/25/17 05:20 Lymph # 0.9 X10^3/uL (1.3-2.9) L 12/25/17 05:20 [place] # 0.7 x10^3/uL (0.3-0.8) 12/25/17 05:20 Eos # 0.3 x10^3/uL (0.0-0.2) H 12/25/17 05:20 Baso # 0.0 X10^3/uL (0.0-0.1) 12/25/17 05:20 Absolute Nucleated RBC 0.0 /100WBC 12/25/17 05:20 Total Counted 100 12/22/17 06:10 Neutrophils % (Manual) 92 % (39-76) H 12/22/17 06:10 Lymphocytes % (Manual) 5 % (13-43) L 12/22/17 06:10 Monocytes % (Manual) 3 % (4-9) L 12/22/17 06:10 Plt Morphology Comment Normal (NORMAL) 12/22/17 06:10 RBC Morphology Normal (NORMAL) 12/22/17 06:10 INR Target Range - 12/21/17 14:10 INR 1.20 (0.8-1.3) 12/21/17 14:10 Sodium 131 mmol/L (136-145) L 12/25/17 05:20 Corrected Sodium 132 mmol/L (136-145) L 12/25/17 05:20 Potassium 3.3 mmol/L (3.5-5.1) L 12/25/17 05:20 Chloride 97 mmol/L (98-107) L 12/25/17 05:20 Carbon Dioxide 24.9 mmol/L (21-32) 12/25/17 05:20 BUN 13 mg/dL (7-18) 12/25/17 05:20 Creatinine 0.69 mg/dL (0.55-1.02) 12/25/17 05:20 Est GFR (MDRD) Af Amer > 60 (>60) 12/25/17 05:20 Est GFR (MDRD) Non-Af > 60 (>60) 12/25/17 05:20 Glucose 151 mg/dL (65-99) H 12/25/17 05:20 Lactic Acid 1.2 mmol/L (0.4-2.0) 12/21/17 14:10 Calcium 7.3 mg/dL (8.5-10.1) L 12/25/17 05:20 Corrected Calcium 9.1 mg/dL (8.5-10.1) 12/25/17 05:20 Magnesium 1.7 mg/dL (1.7-2.9) 12/20/17 05:30 Total Bilirubin 0.80 mg/dL (0.2-1.0) 12/25/17 05:20 AST 9 Units/L (15-37) L 12/25/17 05:20 ALT 10 Units/L (12-78) L 12/25/17 05:20 Alkaline Phosphatase 68 Units/L (46-116) 12/25/17 05:20 Creatine Kinase 46 Units/L (26-192) 12/19/17 20:00 CK-MB (CK-2) 1.0 ng/mL (0-4.0) 12/19/17 20:00 CK/CKMB % Calc 2.2 % (<4) 12/19/17 20:00 Troponin I < 0.02 ng/mL (0-1.5) 12/19/17 20:00 Total Protein 4.8 g/dL (6.4-8.2) L 12/25/17 05:20 Albumin 1.7 g/dL (3.4-5.0) L 12/25/17 05:20 Globulin 3.1 g/dL (2.5-4.5) 12/25/17 05:20 Albumin/Globulin Ratio 0.5 Ratio (1.1-2.1) L 12/25/17 05:20 Prealbumin 9.7 mg/dL (18-35.7) L 12/23/17 06:00 Specimen Type Catherized urine 12/23/17 06:11 Urine Color Dark yellow (YELLOW) 12/23/17 06:11 Urine Appearance Slightly hazy (CLEAR) 12/23/17 06:11 Urine pH 5.0 (5.0 - 8.0) 12/23/17 06:11 Ur Specific [place] 1.025 (1.000-1.030) 12/23/17 06:11 Urine Protein 2+ (NEGATIVE) 12/23/17 06:11 Urine Glucose (UA) 1+ (NEGATIVE) 12/23/17 06:11 Urine Ketones Negative (NEGATIVE) 12/23/17 06:11 Urine Occult Blood 3+ (NEGATIVE) 12/23/17 06:11 Urine Nitrite Negative (NEGATIVE) 12/23/17 06:11 Urine Bilirubin 1+ (NEGATIVE) 12/23/17 06:11 Urine Urobilinogen 1+ (NORMAL) 12/23/17 06:11 Ur Leukocyte Esterase 1+ (NEGATIVE) 12/23/17 06:11 Urine RBC 5-10 /HPF (NEGATIVE) 12/23/17 06:11 Urine WBC 2-6 /HPF (NEGATIVE) 12/23/17 06:11 Ur Squamous Epith Cells Rare /HPF (NEGATIVE) 12/23/17 06:11 Urine Bacteria 2+ /HPF (NEGATIVE) 12/23/17 06:11 Urine Mucus Rare /HPF (NEGATIVE) 12/19/17 15:30 Ur Culture Indicated? Yes/culture set up 12/23/17 06:11 Gastric Occult Blood Positive (NEGATIVE) A 12/20/17 06:20 Stool pH 5 12/20/17 06:20 Influenza Type A (PCR) Negative (NEGATIVE) 12/19/17 12:17 Influenza Type B (PCR) Negative (NEGATIVE) 12/19/17 12:17 Tissue Pathology To follow 12/22/17 13:41 Blood Type O POSITIVE 12/22/17 11:55 Antibody Screen Negative 12/22/17 11:55 - Plan (1) Intractable nausea and vomiting Status: Acute Qualifiers: Vomiting type: unspecified Qualified Code(s): R11.2 - Nausea with vomiting , unspecified Plan: ZOFRAN COCKTAIL IV Q8H PRN, PEPCID 20MG IV Q12H, PROTONIX 40MG IV BID, CONTINUE TO MONITOR (2) Abdominal pain Status: Acute Qualifiers: Abdominal location: lower abdomen, unspecified Qualified Code(s): R10.30 - Lower abdominal pain, unspecified Plan: EXPLORATORY LAPAROTOMY, MORPHINE 2-4MG IV Q4H PRN PAIN, CONTINUE TO MONITOR (3) Hypertension Status: Acute Qualifiers: Hypertension type: essential hypertension Qualified Code(s): I10 - Essential (primary) hypertension Plan: LABETALOL PROTOCOL, CONTINUE COZAAR, CONTINUE TO MONITOR (4) Hypothyroidism Status: Acute Qualifiers: Hypothyroidism type: acquired Qualified Code(s): E03.9 - Hypothyroidism, unspecified Plan: CONTINUE SYNTHROID, CONTINUE TO MONITOR
[2017-12-26] MEDS: D5 1/2 NS 1000 ML 1,000 ML IV SCH ×3 (01:23→17:50)
[2017-12-26 05:37] LABS: BASOPHILS % (AUTO) 0.3 % (0.2-1.0); HEMATOCRIT 31.5 % (36.0-47.0); HEMOGLOBIN 10.8 g/dL (12.0-16.0); LYMPHOCYTES # (AUTO) 0.5 X10^3/uL (1.3-2.9); LYMPHOCYTES % (AUTO) 6.6 % (21.0-51.0); MEAN CORPUSCULAR HEMOGLOBIN 29.5 pg (27.0-34.0); MEAN CORPUSCULAR HGB CONC 34.4 g/dL (33.0-35.0); MEAN CORPUSCULAR VOLUME 85.7 fL (80.0-100.0); MEAN PLATELET VOLUME 7.8 fL (7.4-11.0); MONOCYTES # (AUTO) 0.3 x10^3/uL (0.3-0.8); MONOCYTES % (AUTO) 3.8 % (0.0-13.0); NEUTROPHILS # (AUTO) 7.2 x10^3/uL (2.2-4.8); NEUTROPHILS % (AUTO) 89.3 % (42.0-75.0); PLATELET COUNT 276 X10^3/uL (150.0-450.0); RED BLOOD COUNT 3.68 X10^6/uL (3.5-5.4); RED CELL DISTRIBUTION WIDTH 13.5 % (11.6-16.5)
[2017-12-26 05:45] LABS: ALANINE AMINOTRANSFERASE 12 Units/L (12-78); ALBUMIN 2.1 g/dL (3.4-5.0); ALKALINE PHOSPHATASE 156 Units/L (46-116); ASPARTATE AMINO TRANSFERASE 14 Units/L (15-37); BLOOD UREA NITROGEN 18 mg/dL (7-18); CHLORIDE 103 mmol/L (98-107); COR CA(FOR HYPOALB) 9.5 mg/dL (8.5-10.1); COR NA(FOR HYPERGLY) 136 mmol/L (136-145); CREATININE 0.79 mg/dL (0.55-1.02); SODIUM 135 mmol/L (136-145); TOTAL PROTEIN 5.2 g/dL (6.4-8.2); eGFR BLACK RACES > 60 (>60); eGFR NON BLACK RACES > 60 (>60)
[2017-12-26] MEDS: FORTAZ or TAZICEF INJ 1 GM in NS 100 ML IV + SPIKE MINIBAG* 100 ML IV SCH ×3 (05:59→22:24)
[2017-12-26] MEDS: ZOFRAN INJ 4 MG VIAL IVP PRN (07:25)
[2017-12-26] MEDS: ALBUMIN HUMAN 25%- 100ML 200 ML IV SCH (09:45)
[2017-12-26] MEDS: PROTONIX INJ 40 MG VIAL IVP SCH ×2 (09:48→20:49)
[2017-12-26] MEDS: LOVENOX INJ 40 MG SYR SC SCH (09:57)
[2017-12-26] MEDS: SYNTHROID 75 mcg TAB PO SCH (10:00)
[2017-12-26] MEDS: COZAAR PO SCH ×2 (10:00→20:49)
[2017-12-26] MEDS: ESTRACE PO SCH (10:00)
--- NOTE | 2017-12-26 10:05 | OR.GENERIC ---
Post-Op Note Generic - Post-Op Note Operative Report: Pt underwent further excisional debridement of large traumatic wound Lt leg 20 x 20 cm now will continue local care , IV ATB , Diabetic control and renal management .. awaiting goog granulation of the wound to place skin graft..
[2017-12-26] MEDS: PROCALAMINE 3 % 1,000 ML IV SCH (13:49)
[2017-12-26] MEDS ORDERED: ROBINUL ONE (14:57)
[2017-12-26] MEDS ORDERED: NEO-SYNEPHRINE INJ ONE (14:57)
[2017-12-26] MEDS ORDERED: NEOSTIGMINE INJ ONE (14:57)
[2017-12-26] MEDS ORDERED: SUPRANE IN ONE (14:57)
[2017-12-26] MEDS ORDERED: QUELICIN (OR ANECTINE) ONE (14:57)
[2017-12-26] MEDS ORDERED: DIPRIVAN VIAL ONE (14:57)
[2017-12-26] MEDS: MORPHINE SULFATE INJ 2 MG INJ IVP PRN (20:49)
[2017-12-26] MEDS ORDERED: DECADRON INJ PRESERVATIVE-FREE IM ONE (21:46)
[2017-12-26] MEDS ORDERED: NS 100 ML IV 100 ML IV ONE (21:49)
[2017-12-26] MEDS ORDERED: ATIVAN INJ 2 MG VIAL ONE (21:49)
[2017-12-26] MEDS: ZOFRAN INJ 4 MG VIAL 16 MG, ATIVAN INJ 2 MG VIAL 1 MG, DECADRON INJ 10 MG in NS 50 ML I... IV PRN (22:25)
[2017-12-27] MEDS: D5 1/2 NS 1000 ML 1,000 ML IV SCH (02:17)
[2017-12-27 05:34] LABS: BASOPHILS % (AUTO) 0.2 % (0.2-1.0); EOSINOPHILS % (AUTO) 0.2 % (0.9-2.9); HEMATOCRIT 31.6 % (36.0-47.0); HEMOGLOBIN 10.9 g/dL (12.0-16.0); LYMPHOCYTES # (AUTO) 0.6 X10^3/uL (1.3-2.9); LYMPHOCYTES % (AUTO) 6.4 % (21.0-51.0); MEAN CORPUSCULAR HEMOGLOBIN 29.5 pg (27.0-34.0); MEAN CORPUSCULAR HGB CONC 34.5 g/dL (33.0-35.0); MEAN CORPUSCULAR VOLUME 85.4 fL (80.0-100.0); MEAN PLATELET VOLUME 7.9 fL (7.4-11.0); MONOCYTES # (AUTO) 0.3 x10^3/uL (0.3-0.8); MONOCYTES % (AUTO) 2.7 % (0.0-13.0); NEUTROPHILS # (AUTO) 8.3 x10^3/uL (2.2-4.8); NEUTROPHILS % (AUTO) 90.5 % (42.0-75.0); PLATELET COUNT 316 X10^3/uL (150.0-450.0); RED CELL DISTRIBUTION WIDTH 13.5 % (11.6-16.5); WHITE BLOOD COUNT 9.2 X10^3/uL (3.6-10.0)
[2017-12-27 05:45] LABS: ALANINE AMINOTRANSFERASE 64 Units/L (12-78); ALBUMIN 2.5 g/dL (3.4-5.0); ALKALINE PHOSPHATASE 197 Units/L (46-116); ASPARTATE AMINO TRANSFERASE 69 Units/L (15-37); BLOOD UREA NITROGEN 18 mg/dL (7-18); CALCIUM 7.8 mg/dL (8.5-10.1); CARBON DIOXIDE 25.6 mmol/L (21-32); CHLORIDE 101 mmol/L (98-107); COR NA(FOR HYPERGLY) 136 mmol/L (136-145); CREATININE 0.73 mg/dL (0.55-1.02); SODIUM 135 mmol/L (136-145); TOTAL PROTEIN 5.5 g/dL (6.4-8.2); eGFR BLACK RACES > 60 (>60); eGFR NON BLACK RACES > 60 (>60)
[2017-12-27] MEDS: FORTAZ or TAZICEF INJ 1 GM in NS 100 ML IV + SPIKE MINIBAG* 100 ML IV SCH ×3 (06:13→21:52)
[2017-12-27 06:23] LABS: PLATELET MORPHOLOGY COMMENT NORMAL (NORMAL)
--- NOTE | 2017-12-27 09:05 | PCM.PROG ---
Progress Note - Progress Note for Day of Date: 12/27/17 - Subjective Subjective: doing very well today , colostomy is functioning well today . pt is more alert .. appetite is still poor but no vomiting .. - Past Medical Family Social History Past Med/Fam/Surg Hx: No changes since H&P Allergies: Allergies Iodine and Iodide Containing Produc Allergy (Verified 12/21/17 18:53) Penicillins Allergy (Verified 12/19/17 11:52) Sulfa (Sulfonamide Antibiotics) [SULFA] Allergy (Verified 12/21/17 11:36) niacin Adverse Reaction (Verified 12/21/17 11:35) - Review of Systems ROS: No change since H&P - Vital Signs and I&O's Vital Signs: Temperature 97.9 F Pulse Rate [Apical] 81 Pulse Rate 78 Respiratory Rate 24 Blood Pressure [Left Arm] 132/65 Blood Pressure [Right Arm] 153/69 Blood Pressure 118/68 O2 Sat by Pulse Oximetry 93 Intake and Output: Intake & Output 12/24/17 12/25/17 12/26/17 12/27/17 11:59 11:59 11:59 11:59 Intake Total 5023 4730 3135 5295 Output Total 5060 1870 3120 2900 Balance -37 2860 15 2395 - Physical Exam Oriented: Normal Eyes: Normal. negative: Blurred Vision, Diplopia, Discharge, Pain, Redness, Photophobia, Other Ear: Normal. negative: Right, Left, Swelling, Ecchymosis, Hemotypanum, Abrasion , Laceration Nose: Normal. negative: Injected, Discharge, Blood, Other Throat: Normal. negative: Tonsillar Hypertrophy, Red, Exudate, Dry, Other Respiratory: Normal Cardiovascular: Normal. negative: S3, S4, Murmur : Normal. negative: Dysuria, Hematuria, Frequency, Discharge, Testicular Pain , Bleeding, , Other Auscultation: Bowel Sounds: Decreased Tenderness: Diffuse, Mild (no wound infection.), Other (generalized tenderness with hypoactive BS). negative: Rebound, Rigidity Skin: Normal Musculoskeletal: Normal Psychiatric: Normal Mood Description: Calm Affect: Normal Speech Pattern: Clear - Laboratory and Diagnostics Result Diagrams: 12/27/17 04:25 12/27/17 04:25 Labs: 12/22/17 13:41 Abdomen Gram Stain - Final 12/22/17 13:41 Abdomen Wound Culture - Final Escherichia Coli 12/23/17 06:11 Urine,Catheterized Urine Culture - Final 12/22/17 13:41 Peritoneal Fluid Gram Stain - Final 12/22/17 13:41 Peritoneal Fluid Wound Culture - Final Escherichia Coli Laboratory WBC 9.2 X10^3/uL (3.6-10.0) 12/27/17 04:25 RBC 3.70 X10^6/uL (3.5-5.4) 12/27/17 04:25 Hgb 10.9 g/dL (12.0-16.0) L 12/27/17 04:25 Hct 31.6 % (36.0-47.0) L 12/27/17 04:25 MCV 85.4 fL (80.0-100.0) 12/27/17 04:25 MCH 29.5 pg (27.0-34.0) 12/27/17 04:25 MCHC 34.5 g/dL (33.0-35.0) 12/27/17 04:25 RDW 13.5 % (11.6-16.5) 12/27/17 04:25 Plt Count 316 X10^3/uL (150.0-450.0) 12/27/17 04:25 Plt Count Comment Adequate (ADEQUATE) 12/27/17 04:25 MPV 7.9 fL (7.4-11.0) 12/27/17 04:25 Neut % 90.5 % (42.0-75.0) H 12/27/17 04:25 Lymph % 6.4 % (21.0-51.0) L 12/27/17 04:25 [place] % 2.7 % (0.0-13.0) 12/27/17 04:25 Eos % 0.2 % (0.9-2.9) L 12/27/17 04:25 Baso % 0.2 % (0.2-1.0) 12/27/17 04:25 Neut # 8.3 x10^3/uL (2.2-4.8) H 12/27/17 04:25 Lymph # 0.6 X10^3/uL (1.3-2.9) L 12/27/17 04:25 [place] # 0.3 x10^3/uL (0.3-0.8) 12/27/17 04:25 Eos # 0.0 x10^3/uL (0.0-0.2) 12/27/17 04:25 Baso # 0.0 X10^3/uL (0.0-0.1) 12/27/17 04:25 Absolute Nucleated RBC 0.0 /100WBC 12/27/17 04:25 Total Counted 100 12/27/17 04:25 Neutrophils % (Manual) 88 % (39-76) H 12/27/17 04:25 Lymphocytes % (Manual) 10 % (13-43) L 12/27/17 04:25 Monocytes % (Manual) 1 % (4-9) L 12/27/17 04:25 Eosinophils % (Manual) 1 % (0-6) 12/27/17 04:25 Plt Morphology Comment Normal (NORMAL) 12/27/17 04:25 RBC Morphology Normal (NORMAL) 12/27/17 04:25 INR Target Range - 12/21/17 14:10 INR 1.20 (0.8-1.3) 12/21/17 14:10 Sodium 135 mmol/L (136-145) L 12/27/17 04:25 Corrected Sodium 136 mmol/L (136-145) 12/27/17 04:25 Potassium 4.0 mmol/L (3.5-5.1) 12/27/17 04:25 Chloride 101 mmol/L (98-107) 12/27/17 04:25 Carbon Dioxide 25.6 mmol/L (21-32) 12/27/17 04:25 BUN 18 mg/dL (7-18) 12/27/17 04:25 Creatinine 0.73 mg/dL (0.55-1.02) 12/27/17 04:25 Est GFR (MDRD) Af Amer > 60 (>60) 12/27/17 04:25 Est GFR (MDRD) Non-Af > 60 (>60) 12/27/17 04:25 Glucose 148 mg/dL (65-99) H 12/27/17 04:25 Lactic Acid 1.2 mmol/L (0.4-2.0) 12/21/17 14:10 Calcium 7.8 mg/dL (8.5-10.1) L 12/27/17 04:25 Corrected Calcium 9.0 mg/dL (8.5-10.1) 12/27/17 04:25 Magnesium 1.7 mg/dL (1.7-2.9) 12/20/17 05:30 Total Bilirubin 0.70 mg/dL (0.2-1.0) 12/27/17 04:25 AST 69 Units/L (15-37) H 12/27/17 04:25 ALT 64 Units/L (12-78) 12/27/17 04:25 Alkaline Phosphatase 197 Units/L (46-116) H 12/27/17 04:25 Creatine Kinase 46 Units/L (26-192) 12/19/17 20:00 CK-MB (CK-2) 1.0 ng/mL (0-4.0) 12/19/17 20:00 CK/CKMB % Calc 2.2 % (<4) 12/19/17 20:00 Troponin I < 0.02 ng/mL (0-1.5) 12/19/17 20:00 Total Protein 5.5 g/dL (6.4-8.2) L 12/27/17 04:25 Albumin 2.5 g/dL (3.4-5.0) L 12/27/17 04:25 Globulin 3.0 g/dL (2.5-4.5) 12/27/17 04:25 Albumin/Globulin Ratio 0.8 Ratio (1.1-2.1) L 12/27/17 04:25 Prealbumin 9.7 mg/dL (18-35.7) L 12/23/17 06:00 Specimen Type Catherized urine 12/23/17 06:11 Urine Color Dark yellow (YELLOW) 12/23/17 06:11 Urine Appearance Slightly hazy (CLEAR) 12/23/17 06:11 Urine pH 5.0 (5.0 - 8.0) 12/23/17 06:11 Ur Specific [place] 1.025 (1.000-1.030) 12/23/17 06:11 Urine Protein 2+ (NEGATIVE) 12/23/17 06:11 Urine Glucose (UA) 1+ (NEGATIVE) 12/23/17 06:11 Urine Ketones Negative (NEGATIVE) 12/23/17 06:11 Urine Occult Blood 3+ (NEGATIVE) 12/23/17 06:11 Urine Nitrite Negative (NEGATIVE) 12/23/17 06:11 Urine Bilirubin 1+ (NEGATIVE) 12/23/17 06:11 Urine Urobilinogen 1+ (NORMAL) 12/23/17 06:11 Ur Leukocyte Esterase 1+ (NEGATIVE) 12/23/17 06:11 Urine RBC 5-10 /HPF (NEGATIVE) 12/23/17 06:11 Urine WBC 2-6 /HPF (NEGATIVE) 12/23/17 06:11 Ur Squamous Epith Cells Rare /HPF (NEGATIVE) 12/23/17 06:11 Urine Bacteria 2+ /HPF (NEGATIVE) 12/23/17 06:11 Urine Mucus Rare /HPF (NEGATIVE) 12/19/17 15:30 Ur Culture Indicated? Yes/culture set up 12/23/17 06:11 Gastric Occult Blood Positive (NEGATIVE) A 12/20/17 06:20 Stool pH 5 12/20/17 06:20 Influenza Type A (PCR) Negative (NEGATIVE) 12/19/17 12:17 Influenza Type B (PCR) Negative (NEGATIVE) 12/19/17 12:17 Tissue Pathology To follow 12/22/17 13:41 Blood Type O POSITIVE 12/22/17 11:55 Antibody Screen Negative 12/22/17 11:55 - Plan (1) Diverticulitis large intestine Status: Acute (2) Diverticulitis of large intestine with perforation Status: Acute (3) Peritonitis (acute) generalized Status: Acute Plan: on IV ATB .. IVF. DVT prophylaxis . OOB and PT. pulmonary care . started on soft diet as tolerated. PT, OT
[2017-12-27] MEDS: LOVENOX INJ 40 MG SYR SC SCH (09:17)
[2017-12-27] MEDS: ALBUMIN HUMAN 25%- 100ML 200 ML IV SCH (09:20)
[2017-12-27] MEDS: PROTONIX INJ 40 MG VIAL IVP SCH ×2 (09:22→21:52)
[2017-12-27] MEDS: SYNTHROID 75 mcg TAB PO SCH (09:22)
[2017-12-27] MEDS: COZAAR PO SCH ×2 (09:22→22:36)
[2017-12-27] MEDS: ESTRACE PO SCH (09:22)
[2017-12-27] MEDS ORDERED: NYSTATIN SUSP MT SCH (11:00)
[2017-12-27] MEDS ORDERED: D5 1/2 NS 1000 ML 1,000 ML IV SCH (12:00)
[2017-12-27] MEDS ORDERED: NS 250 ML IV 250 ML IV PRN (14:13)
[2017-12-27] MEDS ORDERED: POTASSIUM CHL 40 MEQ/NS 0.45% 500 ML IV PRN (14:13)
[2017-12-27] MEDS ORDERED: MAGNESIUM SULFATE 1 GM/100 mL PREMIX 1 GM/100 ML BAG IV PRN (14:13)
[2017-12-27] MEDS ORDERED: K-LYTE EFFERVESCENT PO PRN (14:13)
[2017-12-27] MEDS ORDERED: POTASSIUM CHL 60 MEQ/NS 0.45% 500 ML IV PRN (14:13)
[2017-12-27] MEDS ORDERED: K-RIDER 10 MEQ/NS 100 ML 10 MEQ/100 ML BAG IV PRN (14:13)
[2017-12-27] MEDS ORDERED: ZOFRAN INJ 4 MG VIAL IVP PRN (14:13)
[2017-12-27] MEDS ORDERED: NORMODYNE INJ 20 MG VIAL IV PRN (14:13)
[2017-12-27] MEDS ORDERED: ZOFRAN INJ 4 MG VIAL 16 MG, ATIVAN INJ 2 MG VIAL 1 MG, DECADRON INJ 10 MG in NS 50 ML I... IV PRN (14:13)
[2017-12-27] MEDS ORDERED: PROCALAMINE 3 % 1,000 ML IV SCH (14:13)
[2017-12-27] MEDS ORDERED: POTASSIUM CHLORIDE LIQ 20 MEQ UDC PO PRN (14:13)
[2017-12-27] MEDS ORDERED: MORPHINE SULFATE INJ 2 MG INJ IVP PRN (14:13)
[2017-12-27] MEDS ORDERED: MAG-OX TAB PO PRN (14:13)
--- NOTE | 2017-12-27 20:09 | PCM.PROG ---
Progress Note - Progress Note for Day of Date: 12/25/17 - Subjective Subjective: WAS A DIRECT ADMISSION FOR INTRACTABLE NAUSEA AND VOMITING , DEHYDRATION, AND ABDOMINAL PAIN. SHE IS STATUS POST HARTMANS PROCEDURE FOR ACUTE RUPTURED SIGMOID DIVERTICULITIS. TODAY, SHE IS LYING IN BED WITH EYES CLOSED ON MORNING ROUNDS. PATIENTS FAMILY IS AT BEDSIDE. SHE AWAKENS TO VERBAL STIMULI. SHE CONTINUES WITH COMPLAINTS OF ABDOMINAL TENDERNESS. SHE REPORTS THAT PAIN HAS SLIGHTLY IMPROVED SINCE YESTERDAY. SHE ALSO REPORTS NAUSEA AND AN EPISODE OF VOMITING THROUGHOUT THE NIGHT. FAMILY REPORTS THAT THE INTERMITTENT CONFUSION SEEMS TO HAVE RESOLVED. ON EXAMINATION, HEART IS REGULAR IN RATE AND RHYTHM. BIALTERAL LUNGS ARE NOTED TO BE CLEAR TO AUSCULTATION. ABDOMEN IS ROUND , SOFT, AND NOTED WITH MODERATE, DIFFUSE TENDERNESS. HYPOACTIVE BOWEL SOUNDS ARE NOTED IN ALL QUADRANTS. THERE IS A COLOSTOMY NOTED TO THE LEFT LOWER QUADRANT. SMALL AMOUNT IN BAG AT THIS TIME. STOMA IS PINK. NO SIGNS OR SX INFECTION NOTED. GERRY BOND DREAIN NOTED TO RIGHT SIDE ABDOMEN WITH A SMALL AMOUNT OF SEROSANGUINOUS DRAINAGE. THERE IS A BARRETO NOTED TO BEDSIDE DRAINAGE. HER VITALS THIS MORNING ARE 98.6-78-22-98%-136/70. LABS WERE OBTAINED. ABNORMAL LAB VALUES INCLUDE THE FOLLOWING: WBC 11.1, HGB 11.6, HCT 33.2, SODIUM 131, POTASSIUM 3.3, CHLORIDE 97, GLUCOSE 151, CALCIUM 7.3, AST 9, ALT 10, TOTAL PROTEIN 4.8, ALBUMIN 1.7. TODAY, WE WILL ADMINISTER TWO BAGS OF ALBUMIN. OTHERWISE, WE WILL CONTINUE WITH CURRENT PLAN OF CARE AND HAVE PHYSICAL THERAPY SEE PATIENT. WILL CONTINUE TO SEE PATIENT. WE WILL FOLLOW UP WITH AM LABS AND CONTINUE TO MONITOR PATIENT. - Past Medical Family Social History Past Med/Fam/Surg Hx: No changes since H&P Allergies: Allergies Iodine and Iodide Containing Produc Allergy (Verified 12/21/17 18:53) Penicillins Allergy (Verified 12/19/17 11:52) Sulfa (Sulfonamide Antibiotics) [SULFA] Allergy (Verified 12/21/17 11:36) niacin Adverse Reaction (Verified 12/21/17 11:35) - Review of Systems ROS: No change since H&P - Vital Signs and I&O's Vital Signs: Temperature 98.2 F Pulse Rate [Apical] 70 Pulse Rate 78 Respiratory Rate 22 Blood Pressure [Left Arm] 132/65 Blood Pressure [Right Arm] 156/71 Blood Pressure 118/68 O2 Sat by Pulse Oximetry 97 Intake and Output: Intake & Output 12/25/17 12/26/17 12/27/17 12/28/17 11:59 11:59 11:59 11:59 Intake Total 4730 3135 5295 1436 Output Total 1870 3120 2900 400 Balance 2860 15 2395 1036 - Physical Exam Oriented: Normal Eyes: Normal. negative: Blurred Vision, Diplopia, Discharge, Pain, Redness, Photophobia, Other Ear: Normal. negative: Right, Left, Swelling, Ecchymosis, Hemotypanum, Abrasion , Laceration Nose: Normal. negative: Injected, Discharge, Blood, Other Throat: Normal. negative: Tonsillar Hypertrophy, Red, Exudate, Dry, Other Respiratory: Normal Cardiovascular: Normal. negative: S3, S4, Murmur : Normal. negative: Dysuria, Hematuria, Frequency, Discharge, Testicular Pain , Bleeding, , Other Auscultation: Bowel Sounds: Decreased Palpation: Normal Tenderness: Diffuse, Mild (no wound infection.), Other (generalized tenderness with hypoactive BS). negative: Rebound, Rigidity Skin: Normal Musculoskeletal: Normal Psychiatric: Normal Mood Description: Calm Affect: Normal Speech Pattern: Clear - Laboratory and Diagnostics Result Diagrams: 12/27/17 04:25 12/27/17 04:25 Labs: 12/22/17 13:41 Abdomen Gram Stain - Final 12/22/17 13:41 Abdomen Wound Culture - Final Escherichia Coli 12/23/17 06:11 Urine,Catheterized Urine Culture - Final 12/22/17 13:41 Peritoneal Fluid Gram Stain - Final 12/22/17 13:41 Peritoneal Fluid Wound Culture - Final Escherichia Coli Laboratory WBC 9.2 X10^3/uL (3.6-10.0) 12/27/17 04:25 RBC 3.70 X10^6/uL (3.5-5.4) 12/27/17 04:25 Hgb 10.9 g/dL (12.0-16.0) L 12/27/17 04:25 Hct 31.6 % (36.0-47.0) L 12/27/17 04:25 MCV 85.4 fL (80.0-100.0) 12/27/17 04:25 MCH 29.5 pg (27.0-34.0) 12/27/17 04:25 MCHC 34.5 g/dL (33.0-35.0) 12/27/17 04:25 RDW 13.5 % (11.6-16.5) 12/27/17 04:25 Plt Count 316 X10^3/uL (150.0-450.0) 12/27/17 04:25 Plt Count Comment Adequate (ADEQUATE) 12/27/17 04:25 MPV 7.9 fL (7.4-11.0) 12/27/17 04:25 Neut % 90.5 % (42.0-75.0) H 12/27/17 04:25 Lymph % 6.4 % (21.0-51.0) L 12/27/17 04:25 [place] % 2.7 % (0.0-13.0) 12/27/17 04:25 Eos % 0.2 % (0.9-2.9) L 12/27/17 04:25 Baso % 0.2 % (0.2-1.0) 12/27/17 04:25 Neut # 8.3 x10^3/uL (2.2-4.8) H 12/27/17 04:25 Lymph # 0.6 X10^3/uL (1.3-2.9) L 12/27/17 04:25 [place] # 0.3 x10^3/uL (0.3-0.8) 12/27/17 04:25 Eos # 0.0 x10^3/uL (0.0-0.2) 12/27/17 04:25 Baso # 0.0 X10^3/uL (0.0-0.1) 12/27/17 04:25 Absolute Nucleated RBC 0.0 /100WBC 12/27/17 04:25 Total Counted 100 12/27/17 04:25 Neutrophils % (Manual) 88 % (39-76) H 12/27/17 04:25 Lymphocytes % (Manual) 10 % (13-43) L 12/27/17 04:25 Monocytes % (Manual) 1 % (4-9) L 12/27/17 04:25 Eosinophils % (Manual) 1 % (0-6) 12/27/17 04:25 Plt Morphology Comment Normal (NORMAL) 12/27/17 04:25 RBC Morphology Normal (NORMAL) 12/27/17 04:25 INR Target Range - 12/21/17 14:10 INR 1.20 (0.8-1.3) 12/21/17 14:10 Sodium 135 mmol/L (136-145) L 12/27/17 04:25 Corrected Sodium 136 mmol/L (136-145) 12/27/17 04:25 Potassium 4.0 mmol/L (3.5-5.1) 12/27/17 04:25 Chloride 101 mmol/L (98-107) 12/27/17 04:25 Carbon Dioxide 25.6 mmol/L (21-32) 12/27/17 04:25 BUN 18 mg/dL (7-18) 12/27/17 04:25 Creatinine 0.73 mg/dL (0.55-1.02) 12/27/17 04:25 Est GFR (MDRD) Af Amer > 60 (>60) 12/27/17 04:25 Est GFR (MDRD) Non-Af > 60 (>60) 12/27/17 04:25 Glucose 148 mg/dL (65-99) H 12/27/17 04:25 Lactic Acid 1.2 mmol/L (0.4-2.0) 12/21/17 14:10 Calcium 7.8 mg/dL (8.5-10.1) L 12/27/17 04:25 Corrected Calcium 9.0 mg/dL (8.5-10.1) 12/27/17 04:25 Magnesium 1.7 mg/dL (1.7-2.9) 12/20/17 05:30 Total Bilirubin 0.70 mg/dL (0.2-1.0) 12/27/17 04:25 AST 69 Units/L (15-37) H 12/27/17 04:25 ALT 64 Units/L (12-78) 12/27/17 04:25 Alkaline Phosphatase 197 Units/L (46-116) H 12/27/17 04:25 Creatine Kinase 46 Units/L (26-192) 12/19/17 20:00 CK-MB (CK-2) 1.0 ng/mL (0-4.0) 12/19/17 20:00 CK/CKMB % Calc 2.2 % (<4) 12/19/17 20:00 Troponin I < 0.02 ng/mL (0-1.5) 12/19/17 20:00 Total Protein 5.5 g/dL (6.4-8.2) L 12/27/17 04:25 Albumin 2.5 g/dL (3.4-5.0) L 12/27/17 04:25 Globulin 3.0 g/dL (2.5-4.5) 12/27/17 04:25 Albumin/Globulin Ratio 0.8 Ratio (1.1-2.1) L 12/27/17 04:25 Prealbumin 9.7 mg/dL (18-35.7) L 12/23/17 06:00 Specimen Type Catherized urine 12/23/17 06:11 Urine Color Dark yellow (YELLOW) 12/23/17 06:11 Urine Appearance Slightly hazy (CLEAR) 12/23/17 06:11 Urine pH 5.0 (5.0 - 8.0) 12/23/17 06:11 Ur Specific [place] 1.025 (1.000-1.030) 12/23/17 06:11 Urine Protein 2+ (NEGATIVE) 12/23/17 06:11 Urine Glucose (UA) 1+ (NEGATIVE) 12/23/17 06:11 Urine Ketones Negative (NEGATIVE) 12/23/17 06:11 Urine Occult Blood 3+ (NEGATIVE) 12/23/17 06:11 Urine Nitrite Negative (NEGATIVE) 12/23/17 06:11 Urine Bilirubin 1+ (NEGATIVE) 12/23/17 06:11 Urine Urobilinogen 1+ (NORMAL) 12/23/17 06:11 Ur Leukocyte Esterase 1+ (NEGATIVE) 12/23/17 06:11 Urine RBC 5-10 /HPF (NEGATIVE) 12/23/17 06:11 Urine WBC 2-6 /HPF (NEGATIVE) 12/23/17 06:11 Ur Squamous Epith Cells Rare /HPF (NEGATIVE) 12/23/17 06:11 Urine Bacteria 2+ /HPF (NEGATIVE) 12/23/17 06:11 Urine Mucus Rare /HPF (NEGATIVE) 12/19/17 15:30 Ur Culture Indicated? Yes/culture set up 12/23/17 06:11 Gastric Occult Blood Positive (NEGATIVE) A 12/20/17 06:20 Stool pH 5 12/20/17 06:20 Influenza Type A (PCR) Negative (NEGATIVE) 12/19/17 12:17 Influenza Type B (PCR) Negative (NEGATIVE) 12/19/17 12:17 Tissue Pathology To follow 12/22/17 13:41 Blood Type O POSITIVE 12/22/17 11:55 Antibody Screen Negative 12/22/17 11:55 - Plan (1) Diverticulitis of large intestine with perforation Status: Acute Qualifiers: Diverticulitis bleeding: unspecified bleeding status Qualified Code(s): K57.20 - Diverticulitis of large intestine with perforation and abscess without bleeding Plan: COLOSTOMY CARE AND TEACHING, CONTINUE IV ANTIBIOTICS, CONTINUE TO MONITOR PATIENT. (2) Intractable nausea and vomiting Status: Acute Qualifiers: Vomiting type: unspecified Qualified Code(s): R11.2 - Nausea with vomiting , unspecified Plan: ZOFRAN COCKTAIL IV Q8H PRN, PEPCID 20MG IV Q12H, PROTONIX 40MG IV BID, CONTINUE TO MONITOR (3) Abdominal pain Status: Acute Qualifiers: Abdominal location: lower abdomen, unspecified Qualified Code(s): R10.30 - Lower abdominal pain, unspecified Plan: MORPHINE 1MG IV Q6H PRN PAIN, CONTINUE TO MONITOR (4) Hypertension Status: Acute Qualifiers: Hypertension type: essential hypertension Qualified Code(s): I10 - Essential (primary) hypertension Plan: LABETALOL PROTOCOL, CONTINUE COZAAR, CONTINUE TO MONITOR (5) Hypothyroidism Status: Acute Qualifiers: Hypothyroidism type: acquired Qualified Code(s): E03.9 - Hypothyroidism, unspecified Plan: CONTINUE SYNTHROID, CONTINUE TO MONITOR
[2017-12-27] MEDS: NYSTATIN SUSP MT SCH ×2 (20:50→21:51)
[2017-12-27] MEDS ORDERED: DECADRON INJ PRESERVATIVE-FREE IM ONE (21:57)
[2017-12-27] MEDS ORDERED: ATIVAN INJ 2 MG VIAL ONE (21:58)
[2017-12-27] MEDS ORDERED: NS 100 ML IV 100 ML IV ONE (22:00)
[2017-12-28] MEDS: D5 1/2 NS 1000 ML 1,000 ML IV SCH ×2 (02:15→18:47)
[2017-12-28] MEDS: FORTAZ or TAZICEF INJ 1 GM in NS 100 ML IV + SPIKE MINIBAG* 100 ML IV SCH ×3 (05:18→21:27)
[2017-12-28 06:58] LABS: BASOPHILS % (AUTO) 0.1 % (0.2-1.0); EOSINOPHILS % (AUTO) 0.1 % (0.9-2.9); HEMATOCRIT 30.4 % (36.0-47.0); HEMOGLOBIN 10.5 g/dL (12.0-16.0); LYMPHOCYTES # (AUTO) 0.6 X10^3/uL (1.3-2.9); LYMPHOCYTES % (AUTO) 4.2 % (21.0-51.0); MEAN CORPUSCULAR HEMOGLOBIN 29.4 pg (27.0-34.0); MEAN CORPUSCULAR HGB CONC 34.5 g/dL (33.0-35.0); MEAN CORPUSCULAR VOLUME 85.4 fL (80.0-100.0); MEAN PLATELET VOLUME 7.7 fL (7.4-11.0); MONOCYTES # (AUTO) 0.3 x10^3/uL (0.3-0.8); MONOCYTES % (AUTO) 2.2 % (0.0-13.0); NEUTROPHILS # (AUTO) 12.7 x10^3/uL (2.2-4.8); NEUTROPHILS % (AUTO) 93.4 % (42.0-75.0); PLATELET COUNT 331 X10^3/uL (150.0-450.0); RED BLOOD COUNT 3.56 X10^6/uL (3.5-5.4); RED CELL DISTRIBUTION WIDTH 13.5 % (11.6-16.5); WHITE BLOOD COUNT 13.6 X10^3/uL (3.6-10.0)
[2017-12-28 07:10] LABS: ALANINE AMINOTRANSFERASE 118 Units/L (12-78); ALBUMIN 2.7 g/dL (3.4-5.0); ALKALINE PHOSPHATASE 213 Units/L (46-116); ASPARTATE AMINO TRANSFERASE 95 Units/L (15-37); BLOOD UREA NITROGEN 17 mg/dL (7-18); CALCIUM 7.9 mg/dL (8.5-10.1); CARBON DIOXIDE 25.8 mmol/L (21-32); CHLORIDE 101 mmol/L (98-107); COR CA(FOR HYPOALB) 8.9 mg/dL (8.5-10.1); COR NA(FOR HYPERGLY) 136 mmol/L (136-145); CREATININE 0.76 mg/dL (0.55-1.02); SODIUM 136 mmol/L (136-145); TOTAL PROTEIN 5.4 g/dL (6.4-8.2); eGFR BLACK RACES > 60 (>60); eGFR NON BLACK RACES > 60 (>60)
[2017-12-28 08:21] LABS: BAND NEUTROPHILS % 1 % (0-10); PLATELET MORPHOLOGY COMMENT NORMAL (NORMAL)
[2017-12-28] MEDS: ALBUMIN HUMAN 25%- 100ML 200 ML IV SCH (10:08)
[2017-12-28] MEDS: ESTRACE PO SCH (10:09)
[2017-12-28] MEDS: NYSTATIN SUSP MT SCH ×4 (10:09→21:26)
[2017-12-28] MEDS: SYNTHROID 75 mcg TAB PO SCH (10:09)
[2017-12-28] MEDS: LOVENOX INJ 40 MG SYR SC SCH (10:10)
[2017-12-28] MEDS: COZAAR PO SCH ×2 (10:10→21:26)
[2017-12-28] MEDS: PROTONIX INJ 40 MG VIAL IVP SCH ×2 (10:11→21:26)
--- NOTE | 2017-12-28 12:05 | PCM.PROG ---
Progress Note - Subjective Subjective: oral intake is still poor , no nausea or vomiting . feeling weak . colostomy is functioning well . pathology showed ruptured diverticulitis , no malignancy. - Past Medical Family Social History Past Med/Fam/Surg Hx: No changes since H&P Allergies: Allergies Iodine and Iodide Containing Produc Allergy (Verified 12/21/17 18:53) Penicillins Allergy (Verified 12/19/17 11:52) Sulfa (Sulfonamide Antibiotics) [SULFA] Allergy (Verified 12/21/17 11:36) niacin Adverse Reaction (Verified 12/21/17 11:35) - Review of Systems ROS: No change since H&P - Vital Signs and I&O's Vital Signs: Temperature 98.8 F Pulse Rate [Apical] 76 Pulse Rate 78 Respiratory Rate 20 Blood Pressure [Left Arm] 132/65 Blood Pressure [Right Arm] 123/62 Blood Pressure 118/68 O2 Sat by Pulse Oximetry 97 Intake and Output: Intake & Output 12/25/17 12/26/17 12/27/17 12/28/17 11:59 11:59 11:59 11:59 Intake Total 4730 3135 5295 2532 Output Total 1870 3120 2900 400 Balance 2860 15 2395 2132 - Physical Exam Oriented: Normal Eyes: Normal. negative: Blurred Vision, Diplopia, Discharge, Pain, Redness, Photophobia, Other Ear: Normal. negative: Right, Left, Swelling, Ecchymosis, Hemotypanum, Abrasion , Laceration Nose: Normal. negative: Injected, Discharge, Blood, Other Throat: Normal. negative: Tonsillar Hypertrophy, Red, Exudate, Dry, Other Respiratory: Normal Cardiovascular: Normal. negative: S3, S4, Murmur : Normal. negative: Dysuria, Hematuria, Frequency, Discharge, Testicular Pain , Bleeding, , Other Auscultation: Bowel Sounds: Normal (good bowel sound with soft abdomen, no wound infection..) Tenderness: Diffuse, Mild (no wound infection.), Other (generalized tenderness with hypoactive BS). negative: Rebound, Rigidity Skin: Normal Musculoskeletal: Normal Psychiatric: Normal Mood Description: Calm Affect: Normal Speech Pattern: Clear - Laboratory and Diagnostics Result Diagrams: 12/28/17 05:40 12/28/17 05:40 Labs: 12/22/17 13:41 Abdomen Gram Stain - Final 12/22/17 13:41 Abdomen Wound Culture - Final Escherichia Coli 12/23/17 06:11 Urine,Catheterized Urine Culture - Final 12/22/17 13:41 Peritoneal Fluid Gram Stain - Final 12/22/17 13:41 Peritoneal Fluid Wound Culture - Final Escherichia Coli Laboratory WBC 13.6 X10^3/uL (3.6-10.0) H 12/28/17 05:40 RBC 3.56 X10^6/uL (3.5-5.4) 12/28/17 05:40 Hgb 10.5 g/dL (12.0-16.0) L 12/28/17 05:40 Hct 30.4 % (36.0-47.0) L 12/28/17 05:40 MCV 85.4 fL (80.0-100.0) 12/28/17 05:40 MCH 29.4 pg (27.0-34.0) 12/28/17 05:40 MCHC 34.5 g/dL (33.0-35.0) 12/28/17 05:40 RDW 13.5 % (11.6-16.5) 12/28/17 05:40 Plt Count 331 X10^3/uL (150.0-450.0) 12/28/17 05:40 Plt Count Comment Adequate (ADEQUATE) 12/28/17 05:40 MPV 7.7 fL (7.4-11.0) 12/28/17 05:40 Neut % 93.4 % (42.0-75.0) H 12/28/17 05:40 Lymph % 4.2 % (21.0-51.0) L 12/28/17 05:40 [place] % 2.2 % (0.0-13.0) 12/28/17 05:40 Eos % 0.1 % (0.9-2.9) L 12/28/17 05:40 Baso % 0.1 % (0.2-1.0) L 12/28/17 05:40 Neut # 12.7 x10^3/uL (2.2-4.8) H 12/28/17 05:40 Lymph # 0.6 X10^3/uL (1.3-2.9) L 12/28/17 05:40 [place] # 0.3 x10^3/uL (0.3-0.8) 12/28/17 05:40 Eos # 0.0 x10^3/uL (0.0-0.2) 12/28/17 05:40 Baso # 0.0 X10^3/uL (0.0-0.1) 12/28/17 05:40 Absolute Nucleated RBC 0.0 /100WBC 12/28/17 05:40 Total Counted 100 12/28/17 05:40 Neutrophils % (Manual) 93 % (39-76) H 12/28/17 05:40 Band Neutrophils % 1 % (0-10) 12/28/17 05:40 Lymphocytes % (Manual) 5 % (13-43) L 12/28/17 05:40 Monocytes % (Manual) 1 % (4-9) L 12/28/17 05:40 Eosinophils % (Manual) 1 % (0-6) 12/27/17 04:25 Plt Morphology Comment Normal (NORMAL) 12/28/17 05:40 RBC Morphology Normal (NORMAL) 12/28/17 05:40 INR Target Range - 12/21/17 14:10 INR 1.20 (0.8-1.3) 12/21/17 14:10 Sodium 136 mmol/L (136-145) 12/28/17 05:40 Corrected Sodium 136 mmol/L (136-145) 12/28/17 05:40 Potassium 3.6 mmol/L (3.5-5.1) 12/28/17 05:40 Chloride 101 mmol/L (98-107) 12/28/17 05:40 Carbon Dioxide 25.8 mmol/L (21-32) 12/28/17 05:40 BUN 17 mg/dL (7-18) 12/28/17 05:40 Creatinine 0.76 mg/dL (0.55-1.02) 12/28/17 05:40 Est GFR (MDRD) Af Amer > 60 (>60) 12/28/17 05:40 Est GFR (MDRD) Non-Af > 60 (>60) 12/28/17 05:40 Glucose 117 mg/dL (65-99) H 12/28/17 05:40 Lactic Acid 1.2 mmol/L (0.4-2.0) 12/21/17 14:10 Calcium 7.9 mg/dL (8.5-10.1) L 12/28/17 05:40 Corrected Calcium 8.9 mg/dL (8.5-10.1) 12/28/17 05:40 Magnesium 1.7 mg/dL (1.7-2.9) 12/20/17 05:30 Total Bilirubin 0.80 mg/dL (0.2-1.0) 12/28/17 05:40 AST 95 Units/L (15-37) H 12/28/17 05:40 ALT 118 Units/L (12-78) H 12/28/17 05:40 Alkaline Phosphatase 213 Units/L (46-116) H 12/28/17 05:40 Creatine Kinase 46 Units/L (26-192) 12/19/17 20:00 CK-MB (CK-2) 1.0 ng/mL (0-4.0) 12/19/17 20:00 CK/CKMB % Calc 2.2 % (<4) 12/19/17 20:00 Troponin I < 0.02 ng/mL (0-1.5) 12/19/17 20:00 Total Protein 5.4 g/dL (6.4-8.2) L 12/28/17 05:40 Albumin 2.7 g/dL (3.4-5.0) L 12/28/17 05:40 Globulin 2.7 g/dL (2.5-4.5) 12/28/17 05:40 Albumin/Globulin Ratio 1.0 Ratio (1.1-2.1) L 12/28/17 05:40 Prealbumin 9.7 mg/dL (18-35.7) L 12/23/17 06:00 Specimen Type Catherized urine 12/23/17 06:11 Urine Color Dark yellow (YELLOW) 12/23/17 06:11 Urine Appearance Slightly hazy (CLEAR) 12/23/17 06:11 Urine pH 5.0 (5.0 - 8.0) 12/23/17 06:11 Ur Specific [place] 1.025 (1.000-1.030) 12/23/17 06:11 Urine Protein 2+ (NEGATIVE) 12/23/17 06:11 Urine Glucose (UA) 1+ (NEGATIVE) 12/23/17 06:11 Urine Ketones Negative (NEGATIVE) 12/23/17 06:11 Urine Occult Blood 3+ (NEGATIVE) 12/23/17 06:11 Urine Nitrite Negative (NEGATIVE) 12/23/17 06:11 Urine Bilirubin 1+ (NEGATIVE) 12/23/17 06:11 Urine Urobilinogen 1+ (NORMAL) 12/23/17 06:11 Ur Leukocyte Esterase 1+ (NEGATIVE) 12/23/17 06:11 Urine RBC 5-10 /HPF (NEGATIVE) 12/23/17 06:11 Urine WBC 2-6 /HPF (NEGATIVE) 12/23/17 06:11 Ur Squamous Epith Cells Rare /HPF (NEGATIVE) 12/23/17 06:11 Urine Bacteria 2+ /HPF (NEGATIVE) 12/23/17 06:11 Urine Mucus Rare /HPF (NEGATIVE) 12/19/17 15:30 Ur Culture Indicated? Yes/culture set up 12/23/17 06:11 Gastric Occult Blood Positive (NEGATIVE) A 12/20/17 06:20 Stool pH 5 12/20/17 06:20 Influenza Type A (PCR) Negative (NEGATIVE) 12/19/17 12:17 Influenza Type B (PCR) Negative (NEGATIVE) 12/19/17 12:17 Tissue Pathology To follow 12/22/17 13:41 Blood Type O POSITIVE 12/22/17 11:55 Antibody Screen Negative 12/22/17 11:55 - Plan (1) Diverticulitis large intestine Status: Acute (2) Diverticulitis of large intestine with perforation Status: Acute Qualifiers: Diverticulitis bleeding: unspecified bleeding status Qualified Code(s): K57.20 - Diverticulitis of large intestine with perforation and abscess without bleeding Plan: COLOSTOMY CARE AND TEACHING, CONTINUE IV ANTIBIOTICS, CONTINUE TO MONITOR PATIENT. (3) Peritonitis (acute) generalized Status: Acute Plan: on IV ATB .. IVF. DVT prophylaxis . OOB and PT. pulmonary care . nutritional support. PT, OT. needs placement for couple of weeks to continue PT, OT and colostomy care
[2017-12-29 06:30] LABS: BASOPHILS % (AUTO) 0.2 % (0.2-1.0); EOSINOPHILS # (AUTO) 0.2 x10^3/uL (0.0-0.2); EOSINOPHILS % (AUTO) 1.6 % (0.9-2.9); HEMATOCRIT 33.8 % (36.0-47.0); HEMOGLOBIN 11.6 g/dL (12.0-16.0); LYMPHOCYTES # (AUTO) 1.4 X10^3/uL (1.3-2.9); LYMPHOCYTES % (AUTO) 13.6 % (21.0-51.0); MEAN CORPUSCULAR HEMOGLOBIN 29.4 pg (27.0-34.0); MEAN CORPUSCULAR HGB CONC 34.3 g/dL (33.0-35.0); MEAN CORPUSCULAR VOLUME 85.8 fL (80.0-100.0); MEAN PLATELET VOLUME 7.7 fL (7.4-11.0); MONOCYTES # (AUTO) 0.7 x10^3/uL (0.3-0.8); MONOCYTES % (AUTO) 6.5 % (0.0-13.0); NEUTROPHILS # (AUTO) 8.2 x10^3/uL (2.2-4.8); NEUTROPHILS % (AUTO) 78.1 % (42.0-75.0); PLATELET COUNT 364 X10^3/uL (150.0-450.0); RED BLOOD COUNT 3.94 X10^6/uL (3.5-5.4); RED CELL DISTRIBUTION WIDTH 13.7 % (11.6-16.5); WHITE BLOOD COUNT 10.4 X10^3/uL (3.6-10.0)
[2017-12-29] MEDS: D5 1/2 NS 1000 ML 1,000 ML IV SCH ×2 (06:31→19:45)
[2017-12-29] MEDS: FORTAZ or TAZICEF INJ 1 GM in NS 100 ML IV + SPIKE MINIBAG* 100 ML IV SCH ×3 (06:40→21:02)
[2017-12-29 06:45] LABS: ALBUMIN 2.6 g/dL (3.4-5.0); ASPARTATE AMINO TRANSFERASE 76 Units/L (15-37); SODIUM 138 mmol/L (136-145); eGFR BLACK RACES > 60 (>60); eGFR NON BLACK RACES > 60 (>60)
[2017-12-29 07:04] LABS: ALANINE AMINOTRANSFERASE 124 Units/L (12-78); ALKALINE PHOSPHATASE 199 Units/L (46-116); BLOOD UREA NITROGEN 19 mg/dL (7-18); CALCIUM 7.9 mg/dL (8.5-10.1); CARBON DIOXIDE 27.2 mmol/L (21-32); CHLORIDE 102 mmol/L (98-107); CREATININE 0.68 mg/dL (0.55-1.02); TOTAL PROTEIN 5.3 g/dL (6.4-8.2)
[2017-12-29] MEDS: COZAAR PO SCH ×2 (11:56→21:01)
[2017-12-29] MEDS: NYSTATIN SUSP MT SCH ×4 (11:57→21:02)
[2017-12-29] MEDS: LOVENOX INJ 40 MG SYR SC SCH (11:57)
[2017-12-29] MEDS: SYNTHROID 75 mcg TAB PO SCH (11:57)
[2017-12-29] MEDS: ESTRACE PO SCH (11:57)
[2017-12-29] MEDS: PROTONIX INJ 40 MG VIAL IVP SCH ×2 (11:58→21:02)
[2017-12-29] MEDS: ALBUMIN HUMAN 25%- 100ML 200 ML IV SCH (13:39)
--- NOTE | 2017-12-29 17:17 | PCM.PROG ---
Progress Note - Progress Note for Day of Date: 12/29/17 - Subjective Subjective: oral intake is still poor , no nausea or vomiting . feeling stronger today. colostomy is functioning well . pathology showed ruptured diverticulitis , no malignancy. - Past Medical Family Social History Past Med/Fam/Surg Hx: No changes since H&P Allergies: Allergies Iodine and Iodide Containing Produc Allergy (Verified 12/21/17 18:53) Penicillins Allergy (Verified 12/19/17 11:52) Sulfa (Sulfonamide Antibiotics) [SULFA] Allergy (Verified 12/21/17 11:36) niacin Adverse Reaction (Verified 12/21/17 11:35) - Review of Systems ROS: No change since H&P - Vital Signs and I&O's Vital Signs: Temperature 98.6 F Pulse Rate [Apical] 78 Pulse Rate 78 Respiratory Rate 18 Blood Pressure [Left Arm] 134/65 Blood Pressure [Right Arm] 117/63 Blood Pressure 118/68 O2 Sat by Pulse Oximetry 98 Intake and Output: Intake & Output 12/27/17 12/28/17 12/29/17 12/30/17 11:59 11:59 11:59 11:59 Intake Total 5295 2532 860 Output Total 2900 400 750 Balance 2395 2132 110 - Physical Exam Oriented: Normal Eyes: Normal. negative: Blurred Vision, Diplopia, Discharge, Pain, Redness, Photophobia, Other Ear: Normal. negative: Right, Left, Swelling, Ecchymosis, Hemotypanum, Abrasion , Laceration Nose: Normal. negative: Injected, Discharge, Blood, Other Throat: Normal. negative: Tonsillar Hypertrophy, Red, Exudate, Dry, Other Respiratory: Normal Cardiovascular: Normal. negative: S3, S4, Murmur : Normal. negative: Dysuria, Hematuria, Frequency, Discharge, Testicular Pain , Bleeding, , Other Auscultation: Bowel Sounds: Normal (good bowel sound with soft abdomen, no wound infection..) Tenderness: Diffuse, Mild (no wound infection.), Other (generalized tenderness with hypoactive BS). negative: Rebound, Rigidity Skin: Normal Musculoskeletal: Normal Psychiatric: Normal Mood Description: Calm Affect: Normal Speech Pattern: Clear - Laboratory and Diagnostics Result Diagrams: 12/29/17 05:46 12/29/17 05:46 Labs: 12/22/17 13:41 Abdomen Gram Stain - Final 12/22/17 13:41 Abdomen Wound Culture - Final Escherichia Coli 12/23/17 06:11 Urine,Catheterized Urine Culture - Final 12/22/17 13:41 Peritoneal Fluid Gram Stain - Final 12/22/17 13:41 Peritoneal Fluid Wound Culture - Final Escherichia Coli Laboratory WBC 10.4 X10^3/uL (3.6-10.0) H 12/29/17 05:46 RBC 3.94 X10^6/uL (3.5-5.4) 12/29/17 05:46 Hgb 11.6 g/dL (12.0-16.0) L 12/29/17 05:46 Hct 33.8 % (36.0-47.0) L 12/29/17 05:46 MCV 85.8 fL (80.0-100.0) 12/29/17 05:46 MCH 29.4 pg (27.0-34.0) 12/29/17 05:46 MCHC 34.3 g/dL (33.0-35.0) 12/29/17 05:46 RDW 13.7 % (11.6-16.5) 12/29/17 05:46 Plt Count 364 X10^3/uL (150.0-450.0) 12/29/17 05:46 Plt Count Comment Adequate (ADEQUATE) 12/28/17 05:40 MPV 7.7 fL (7.4-11.0) 12/29/17 05:46 Neut % 78.1 % (42.0-75.0) H 12/29/17 05:46 Lymph % 13.6 % (21.0-51.0) L 12/29/17 05:46 [place] % 6.5 % (0.0-13.0) 12/29/17 05:46 Eos % 1.6 % (0.9-2.9) 12/29/17 05:46 Baso % 0.2 % (0.2-1.0) 12/29/17 05:46 Neut # 8.2 x10^3/uL (2.2-4.8) H 12/29/17 05:46 Lymph # 1.4 X10^3/uL (1.3-2.9) 12/29/17 05:46 [place] # 0.7 x10^3/uL (0.3-0.8) 12/29/17 05:46 Eos # 0.2 x10^3/uL (0.0-0.2) 12/29/17 05:46 Baso # 0.0 X10^3/uL (0.0-0.1) 12/29/17 05:46 Absolute Nucleated RBC 0.0 /100WBC 12/29/17 05:46 Total Counted 100 12/28/17 05:40 Neutrophils % (Manual) 93 % (39-76) H 12/28/17 05:40 Band Neutrophils % 1 % (0-10) 12/28/17 05:40 Lymphocytes % (Manual) 5 % (13-43) L 12/28/17 05:40 Monocytes % (Manual) 1 % (4-9) L 12/28/17 05:40 Eosinophils % (Manual) 1 % (0-6) 12/27/17 04:25 Plt Morphology Comment Normal (NORMAL) 12/28/17 05:40 RBC Morphology Normal (NORMAL) 12/28/17 05:40 INR Target Range - 12/21/17 14:10 INR 1.20 (0.8-1.3) 12/21/17 14:10 Sodium 138 mmol/L (136-145) 12/29/17 05:46 Corrected Sodium TNP 12/29/17 05:46 Potassium 3.2 mmol/L (3.5-5.1) L 12/29/17 05:46 Chloride 102 mmol/L (98-107) 12/29/17 05:46 Carbon Dioxide 27.2 mmol/L (21-32) 12/29/17 05:46 BUN 19 mg/dL (7-18) H 12/29/17 05:46 Creatinine 0.68 mg/dL (0.55-1.02) 12/29/17 05:46 Est GFR (MDRD) Af Amer > 60 (>60) 12/29/17 05:46 Est GFR (MDRD) Non-Af > 60 (>60) 12/29/17 05:46 Glucose 86 mg/dL (65-99) 12/29/17 05:46 Lactic Acid 1.2 mmol/L (0.4-2.0) 12/21/17 14:10 Calcium 7.9 mg/dL (8.5-10.1) L 12/29/17 05:46 Corrected Calcium 9.0 mg/dL (8.5-10.1) 12/29/17 05:46 Magnesium 1.7 mg/dL (1.7-2.9) 12/20/17 05:30 Total Bilirubin 0.60 mg/dL (0.2-1.0) 12/29/17 05:46 AST 76 Units/L (15-37) H 12/29/17 05:46 ALT 124 Units/L (12-78) H 12/29/17 05:46 Alkaline Phosphatase 199 Units/L (46-116) H 12/29/17 05:46 Creatine Kinase 46 Units/L (26-192) 12/19/17 20:00 CK-MB (CK-2) 1.0 ng/mL (0-4.0) 12/19/17 20:00 CK/CKMB % Calc 2.2 % (<4) 12/19/17 20:00 Troponin I < 0.02 ng/mL (0-1.5) 12/19/17 20:00 Total Protein 5.3 g/dL (6.4-8.2) L 12/29/17 05:46 Albumin 2.6 g/dL (3.4-5.0) L 12/29/17 05:46 Globulin 2.7 g/dL (2.5-4.5) 12/29/17 05:46 Albumin/Globulin Ratio 1.0 Ratio (1.1-2.1) L 12/29/17 05:46 Prealbumin 9.7 mg/dL (18-35.7) L 12/23/17 06:00 Specimen Type Catherized urine 12/23/17 06:11 Urine Color Dark yellow (YELLOW) 12/23/17 06:11 Urine Appearance Slightly hazy (CLEAR) 12/23/17 06:11 Urine pH 5.0 (5.0 - 8.0) 12/23/17 06:11 Ur Specific [place] 1.025 (1.000-1.030) 12/23/17 06:11 Urine Protein 2+ (NEGATIVE) 12/23/17 06:11 Urine Glucose (UA) 1+ (NEGATIVE) 12/23/17 06:11 Urine Ketones Negative (NEGATIVE) 12/23/17 06:11 Urine Occult Blood 3+ (NEGATIVE) 12/23/17 06:11 Urine Nitrite Negative (NEGATIVE) 12/23/17 06:11 Urine Bilirubin 1+ (NEGATIVE) 12/23/17 06:11 Urine Urobilinogen 1+ (NORMAL) 12/23/17 06:11 Ur Leukocyte Esterase 1+ (NEGATIVE) 12/23/17 06:11 Urine RBC 5-10 /HPF (NEGATIVE) 12/23/17 06:11 Urine WBC 2-6 /HPF (NEGATIVE) 12/23/17 06:11 Ur Squamous Epith Cells Rare /HPF (NEGATIVE) 12/23/17 06:11 Urine Bacteria 2+ /HPF (NEGATIVE) 12/23/17 06:11 Urine Mucus Rare /HPF (NEGATIVE) 12/19/17 15:30 Ur Culture Indicated? Yes/culture set up 12/23/17 06:11 Gastric Occult Blood Positive (NEGATIVE) A 12/20/17 06:20 Stool pH 5 12/20/17 06:20 Influenza Type A (PCR) Negative (NEGATIVE) 12/19/17 12:17 Influenza Type B (PCR) Negative (NEGATIVE) 12/19/17 12:17 Tissue Pathology To follow 12/22/17 13:41 Blood Type O POSITIVE 12/22/17 11:55 Antibody Screen Negative 12/22/17 11:55 - Plan (1) Diverticulitis large intestine Status: Acute (2) Diverticulitis of large intestine with perforation Status: Acute Qualifiers: Diverticulitis bleeding: unspecified bleeding status Qualified Code(s): K57.20 - Diverticulitis of large intestine with perforation and abscess without bleeding Plan: COLOSTOMY CARE AND TEACHING, CONTINUE IV ANTIBIOTICS, CONTINUE TO MONITOR PATIENT. (3) Peritonitis (acute) generalized Status: Acute Plan: on IV ATB .. IVF. DVT prophylaxis . OOB and PT. pulmonary care . nutritional support. PT, OT. needs placement for couple of weeks to continue PT, OT and colostomy care
[2017-12-29] MEDS ORDERED: NORCO 5/325 MG TAB PO PRN (20:28)
--- NOTE | 2017-12-29 20:46 | PCM.PROG ---
Progress Note - Progress Note for Day of Date: 12/26/17 - Subjective Subjective: WAS A DIRECT ADMISSION FOR INTRACTABLE NAUSEA AND VOMITING , DEHYDRATION, AND ABDOMINAL PAIN. SHE IS STATUS POST HARTMANS PROCEDURE FOR ACUTE RUPTURED SIGMOID DIVERTICULITIS. TODAY, SHE IS LYING IN BED WITH EYES CLOSED ON MORNING ROUNDS. PATIENTS FAMILY IS AT BEDSIDE. SHE AWAKENS TO VERBAL STIMULI. SHE CONTINUES WITH COMPLAINTS OF ABDOMINAL TENDERNESS. SHE REPORTS THAT PAIN HAS SLIGHTLY IMPROVED SINCE YESTERDAY. SHE ALSO REPORTS NAUSEA AND AN EPISODE OF VOMITING THROUGHOUT THE NIGHT. FAMILY REPORTS THAT THE INTERMITTENT CONFUSION SEEMS TO HAVE RESOLVED. ON EXAMINATION, HEART IS REGULAR IN RATE AND RHYTHM. BIALTERAL LUNGS ARE NOTED TO BE CLEAR TO AUSCULTATION. ABDOMEN IS ROUND , SOFT, AND NOTED WITH MODERATE, DIFFUSE TENDERNESS. HYPOACTIVE BOWEL SOUNDS ARE NOTED IN ALL QUADRANTS. THERE IS A COLOSTOMY NOTED TO THE LEFT LOWER QUADRANT. SMALL AMOUNT IN BAG AT THIS TIME. STOMA IS PINK. NO SIGNS OR SX INFECTION NOTED. GERRY BOND DREAIN NOTED TO RIGHT SIDE ABDOMEN WITH A SMALL AMOUNT OF SEROSANGUINOUS DRAINAGE. THERE IS A BARRETO NOTED TO BEDSIDE DRAINAGE. HER VITALS THIS MORNING ARE 98.6-78-22-98%-136/70. LABS WERE OBTAINED. ABNORMAL LAB VALUES INCLUDE THE FOLLOWING: WBC 11.1, HGB 11.6, HCT 33.2, SODIUM 131, POTASSIUM 3.3, CHLORIDE 97, GLUCOSE 151, CALCIUM 7.3, AST 9, ALT 10, TOTAL PROTEIN 4.8, ALBUMIN 1.7. TODAY, WE WILL ADMINISTER TWO BAGS OF ALBUMIN. OTHERWISE, WE WILL CONTINUE WITH CURRENT PLAN OF CARE AND HAVE PHYSICAL THERAPY SEE PATIENT. WILL CONTINUE TO SEE PATIENT. WE WILL FOLLOW UP WITH AM LABS AND CONTINUE TO MONITOR PATIENT. - Past Medical Family Social History Past Med/Fam/Surg Hx: No changes since H&P Allergies: Allergies Iodine and Iodide Containing Produc Allergy (Verified 12/21/17 18:53) Penicillins Allergy (Verified 12/19/17 11:52) Sulfa (Sulfonamide Antibiotics) [SULFA] Allergy (Verified 12/21/17 11:36) niacin Adverse Reaction (Verified 12/21/17 11:35) - Review of Systems ROS: No change since H&P - Vital Signs and I&O's Vital Signs: Temperature 98.7 F Pulse Rate [Apical] 84 Pulse Rate 78 Respiratory Rate 20 Blood Pressure [Left Arm] 134/65 Blood Pressure [Right Arm] 130/71 Blood Pressure 118/68 O2 Sat by Pulse Oximetry 95 Intake and Output: Intake & Output 12/27/17 12/28/17 12/29/17 12/30/17 11:59 11:59 11:59 11:59 Intake Total 5295 2532 860 800 Output Total 2900 400 750 925 Balance 2395 2132 110 -125 - Physical Exam Oriented: Normal Eyes: Normal. negative: Blurred Vision, Diplopia, Discharge, Pain, Redness, Photophobia, Other Ear: Normal. negative: Right, Left, Swelling, Ecchymosis, Hemotypanum, Abrasion , Laceration Nose: Normal. negative: Injected, Discharge, Blood, Other Throat: Normal. negative: Tonsillar Hypertrophy, Red, Exudate, Dry, Other Respiratory: Normal Cardiovascular: Normal. negative: S3, S4, Murmur : Normal. negative: Dysuria, Hematuria, Frequency, Discharge, Testicular Pain , Bleeding, , Other Auscultation: Bowel Sounds: Decreased Palpation: Normal Tenderness: Diffuse, Mild (no wound infection.), Other (generalized tenderness with hypoactive BS). negative: Rebound, Rigidity Skin: Normal Musculoskeletal: Normal Psychiatric: Normal Mood Description: Calm Affect: Normal Speech Pattern: Clear - Laboratory and Diagnostics Result Diagrams: 12/29/17 05:46 12/29/17 05:46 Labs: 12/22/17 13:41 Abdomen Gram Stain - Final 12/22/17 13:41 Abdomen Wound Culture - Final Escherichia Coli 12/23/17 06:11 Urine,Catheterized Urine Culture - Final 12/22/17 13:41 Peritoneal Fluid Gram Stain - Final 12/22/17 13:41 Peritoneal Fluid Wound Culture - Final Escherichia Coli Laboratory WBC 10.4 X10^3/uL (3.6-10.0) H 12/29/17 05:46 RBC 3.94 X10^6/uL (3.5-5.4) 12/29/17 05:46 Hgb 11.6 g/dL (12.0-16.0) L 12/29/17 05:46 Hct 33.8 % (36.0-47.0) L 12/29/17 05:46 MCV 85.8 fL (80.0-100.0) 12/29/17 05:46 MCH 29.4 pg (27.0-34.0) 12/29/17 05:46 MCHC 34.3 g/dL (33.0-35.0) 12/29/17 05:46 RDW 13.7 % (11.6-16.5) 12/29/17 05:46 Plt Count 364 X10^3/uL (150.0-450.0) 12/29/17 05:46 Plt Count Comment Adequate (ADEQUATE) 12/28/17 05:40 MPV 7.7 fL (7.4-11.0) 12/29/17 05:46 Neut % 78.1 % (42.0-75.0) H 12/29/17 05:46 Lymph % 13.6 % (21.0-51.0) L 12/29/17 05:46 [place] % 6.5 % (0.0-13.0) 12/29/17 05:46 Eos % 1.6 % (0.9-2.9) 12/29/17 05:46 Baso % 0.2 % (0.2-1.0) 12/29/17 05:46 Neut # 8.2 x10^3/uL (2.2-4.8) H 12/29/17 05:46 Lymph # 1.4 X10^3/uL (1.3-2.9) 12/29/17 05:46 [place] # 0.7 x10^3/uL (0.3-0.8) 12/29/17 05:46 Eos # 0.2 x10^3/uL (0.0-0.2) 12/29/17 05:46 Baso # 0.0 X10^3/uL (0.0-0.1) 12/29/17 05:46 Absolute Nucleated RBC 0.0 /100WBC 12/29/17 05:46 Total Counted 100 12/28/17 05:40 Neutrophils % (Manual) 93 % (39-76) H 12/28/17 05:40 Band Neutrophils % 1 % (0-10) 12/28/17 05:40 Lymphocytes % (Manual) 5 % (13-43) L 12/28/17 05:40 Monocytes % (Manual) 1 % (4-9) L 12/28/17 05:40 Eosinophils % (Manual) 1 % (0-6) 12/27/17 04:25 Plt Morphology Comment Normal (NORMAL) 12/28/17 05:40 RBC Morphology Normal (NORMAL) 12/28/17 05:40 INR Target Range - 12/21/17 14:10 INR 1.20 (0.8-1.3) 12/21/17 14:10 Sodium 138 mmol/L (136-145) 12/29/17 05:46 Corrected Sodium TNP 12/29/17 05:46 Potassium 3.2 mmol/L (3.5-5.1) L 12/29/17 05:46 Chloride 102 mmol/L (98-107) 12/29/17 05:46 Carbon Dioxide 27.2 mmol/L (21-32) 12/29/17 05:46 BUN 19 mg/dL (7-18) H 12/29/17 05:46 Creatinine 0.68 mg/dL (0.55-1.02) 12/29/17 05:46 Est GFR (MDRD) Af Amer > 60 (>60) 12/29/17 05:46 Est GFR (MDRD) Non-Af > 60 (>60) 12/29/17 05:46 Glucose 86 mg/dL (65-99) 12/29/17 05:46 Lactic Acid 1.2 mmol/L (0.4-2.0) 12/21/17 14:10 Calcium 7.9 mg/dL (8.5-10.1) L 12/29/17 05:46 Corrected Calcium 9.0 mg/dL (8.5-10.1) 12/29/17 05:46 Magnesium 1.7 mg/dL (1.7-2.9) 12/20/17 05:30 Total Bilirubin 0.60 mg/dL (0.2-1.0) 12/29/17 05:46 AST 76 Units/L (15-37) H 12/29/17 05:46 ALT 124 Units/L (12-78) H 12/29/17 05:46 Alkaline Phosphatase 199 Units/L (46-116) H 12/29/17 05:46 Creatine Kinase 46 Units/L (26-192) 12/19/17 20:00 CK-MB (CK-2) 1.0 ng/mL (0-4.0) 12/19/17 20:00 CK/CKMB % Calc 2.2 % (<4) 12/19/17 20:00 Troponin I < 0.02 ng/mL (0-1.5) 12/19/17 20:00 Total Protein 5.3 g/dL (6.4-8.2) L 12/29/17 05:46 Albumin 2.6 g/dL (3.4-5.0) L 12/29/17 05:46 Globulin 2.7 g/dL (2.5-4.5) 12/29/17 05:46 Albumin/Globulin Ratio 1.0 Ratio (1.1-2.1) L 12/29/17 05:46 Prealbumin 9.7 mg/dL (18-35.7) L 12/23/17 06:00 Specimen Type Catherized urine 12/23/17 06:11 Urine Color Dark yellow (YELLOW) 12/23/17 06:11 Urine Appearance Slightly hazy (CLEAR) 12/23/17 06:11 Urine pH 5.0 (5.0 - 8.0) 12/23/17 06:11 Ur Specific Line [place] 1.025 (1.000-1.030) 12/23/17 06:11 Urine Protein 2+ (NEGATIVE) 12/23/17 06:11 Urine Glucose (UA) 1+ (NEGATIVE) 12/23/17 06:11 Urine Ketones Negative (NEGATIVE) 12/23/17 06:11 Urine Occult Blood 3+ (NEGATIVE) 12/23/17 06:11 Urine Nitrite Negative (NEGATIVE) 12/23/17 06:11 Urine Bilirubin 1+ (NEGATIVE) 12/23/17 06:11 Urine Urobilinogen 1+ (NORMAL) 12/23/17 06:11 Ur Leukocyte Esterase 1+ (NEGATIVE) 12/23/17 06:11 Urine RBC 5-10 /HPF (NEGATIVE) 12/23/17 06:11 Urine WBC 2-6 /HPF (NEGATIVE) 12/23/17 06:11 Ur Squamous Epith Cells Rare /HPF (NEGATIVE) 12/23/17 06:11 Urine Bacteria 2+ /HPF (NEGATIVE) 12/23/17 06:11 Urine Mucus Rare /HPF (NEGATIVE) 12/19/17 15:30 Ur Culture Indicated? Yes/culture set up 12/23/17 06:11 Gastric Occult Blood Positive (NEGATIVE) A 12/20/17 06:20 Stool pH 5 12/20/17 06:20 Influenza Type A (PCR) Negative (NEGATIVE) 12/19/17 12:17 Influenza Type B (PCR) Negative (NEGATIVE) 12/19/17 12:17 Tissue Pathology To follow 12/22/17 13:41 Blood Type O POSITIVE 12/22/17 11:55 Antibody Screen Negative 12/22/17 11:55 - Plan (1) Diverticulitis of large intestine with perforation Status: Acute Qualifiers: Diverticulitis bleeding: unspecified bleeding status Qualified Code(s): K57.20 - Diverticulitis of large intestine with perforation and abscess without bleeding Plan: COLOSTOMY CARE AND TEACHING, CONTINUE IV ANTIBIOTICS, CONTINUE TO MONITOR PATIENT. (2) Intractable nausea and vomiting Status: Acute Qualifiers: Vomiting type: unspecified Qualified Code(s): R11.2 - Nausea with vomiting , unspecified Plan: ZOFRAN COCKTAIL IV Q8H PRN, PEPCID 20MG IV Q12H, PROTONIX 40MG IV BID, CONTINUE TO MONITOR (3) Abdominal pain Status: Acute Qualifiers: Abdominal location: lower abdomen, unspecified Qualified Code(s): R10.30 - Lower abdominal pain, unspecified Plan: MORPHINE 1MG IV Q6H PRN PAIN, CONTINUE TO MONITOR (4) Hypertension Status: Acute Qualifiers: Hypertension type: essential hypertension Qualified Code(s): I10 - Essential (primary) hypertension Plan: LABETALOL PROTOCOL, CONTINUE COZAAR, CONTINUE TO MONITOR (5) Hypothyroidism Status: Acute Qualifiers: Hypothyroidism type: acquired Qualified Code(s): E03.9 - Hypothyroidism, unspecified Plan: CONTINUE SYNTHROID, CONTINUE TO MONITOR
[2017-12-30 06:24] LABS: BASOPHILS % (AUTO) 0.4 % (0.2-1.0); EOSINOPHILS # (AUTO) 0.2 x10^3/uL (0.0-0.2); EOSINOPHILS % (AUTO) 1.9 % (0.9-2.9); HEMATOCRIT 30.9 % (36.0-47.0); HEMOGLOBIN 10.8 g/dL (12.0-16.0); LYMPHOCYTES # (AUTO) 1.2 X10^3/uL (1.3-2.9); LYMPHOCYTES % (AUTO) 12.4 % (21.0-51.0); MEAN CORPUSCULAR HGB CONC 35.1 g/dL (33.0-35.0); MEAN CORPUSCULAR VOLUME 85.5 fL (80.0-100.0); MEAN PLATELET VOLUME 7.6 fL (7.4-11.0); MONOCYTES # (AUTO) 0.5 x10^3/uL (0.3-0.8); MONOCYTES % (AUTO) 5.2 % (0.0-13.0); NEUTROPHILS # (AUTO) 7.7 x10^3/uL (2.2-4.8); NEUTROPHILS % (AUTO) 80.1 % (42.0-75.0); PLATELET COUNT 379 X10^3/uL (150.0-450.0); RED BLOOD COUNT 3.62 X10^6/uL (3.5-5.4); RED CELL DISTRIBUTION WIDTH 13.8 % (11.6-16.5); WHITE BLOOD COUNT 9.6 X10^3/uL (3.6-10.0)
[2017-12-30] MEDS: D5 1/2 NS 1000 ML 1,000 ML IV SCH (06:32)
[2017-12-30] MEDS: FORTAZ or TAZICEF INJ 1 GM in NS 100 ML IV + SPIKE MINIBAG* 100 ML IV SCH (06:33)
[2017-12-30 07:12] LABS: ALANINE AMINOTRANSFERASE 100 Units/L (12-78); ALBUMIN 2.4 g/dL (3.4-5.0); ALKALINE PHOSPHATASE 165 Units/L (46-116); ASPARTATE AMINO TRANSFERASE 43 Units/L (15-37); BLOOD UREA NITROGEN 11 mg/dL (7-18); CALCIUM 7.8 mg/dL (8.5-10.1); CARBON DIOXIDE 25.2 mmol/L (21-32); CHLORIDE 99 mmol/L (98-107); COR CA(FOR HYPOALB) 9.1 mg/dL (8.5-10.1); COR NA(FOR HYPERGLY) 136 mmol/L (136-145); CREATININE 0.56 mg/dL (0.55-1.02); SODIUM 135 mmol/L (136-145); TOTAL PROTEIN 5.1 g/dL (6.4-8.2); eGFR BLACK RACES > 60 (>60); eGFR NON BLACK RACES > 60 (>60)
[2017-12-30] MEDS: ALBUMIN HUMAN 25%- 100ML 200 ML IV SCH (10:32)
[2017-12-30] MEDS: COZAAR PO SCH (10:34)
[2017-12-30] MEDS: PROTONIX INJ 40 MG VIAL IVP SCH (10:34)
[2017-12-30] MEDS: ESTRACE PO SCH (10:34)
[2017-12-30] MEDS: NYSTATIN SUSP MT SCH (10:34)
[2017-12-30] MEDS: LOVENOX INJ 40 MG SYR SC SCH (10:35)
[2017-12-30] MEDS: SYNTHROID 75 mcg TAB PO SCH (10:36)
--- NOTE | 2017-12-30 11:28 | PCM.PROG ---
Progress Note - Progress Note for Day of Date: 12/27/17 - Subjective Subjective: WAS A DIRECT ADMISSION FOR INTRACTABLE NAUSEA AND VOMITING , DEHYDRATION, AND ABDOMINAL PAIN. SHE IS STATUS POST HARTMANS PROCEDURE FOR ACUTE RUPTURED SIGMOID DIVERTICULITIS. TODAY, SHE IS LYING IN BED WITH EYES CLOSED ON MORNING ROUNDS. PATIENTS FAMILY IS AT BEDSIDE. SHE AWAKENS TO VERBAL STIMULI. SHE CONTINUES WITH COMPLAINTS OF ABDOMINAL TENDERNESS, BUT CONTINUES TO REPORT SLIGHT IMPROVEMENT SINCE YESTERDAY. SHE DENIES NAUSEA THIS MORNING. ON EXAMINATION, HEART IS REGULAR IN RATE AND RHYTHM. BIALTERAL LUNGS ARE NOTED TO BE CLEAR TO AUSCULTATION. ABDOMEN IS ROUND, SOFT, AND NOTED WITH MODERATE, DIFFUSE TENDERNESS. HYPOACTIVE BOWEL SOUNDS ARE NOTED IN ALL QUADRANTS. THERE IS A COLOSTOMY NOTED TO THE LEFT LOWER QUADRANT. SMALL AMOUNT OF STOOL NOTED IN BAG AT THIS TIME. NO SIGNS OR SX INFECTION NOTED TO SITE. GERRY BOND DRAIN WAS REMOVED ON 12-25-17. THERE IS A BARRETO NOTED TO BEDSIDE DRAINAGE. HER VITALS THIS MORNING ARE 98.8-76-24-94%-145/68. LABS WERE OBTAINED. SHE IS HEMODYNAMICALLY STABLE. STAFF REPORTS THAT SHE SAT ON THE SIDE OF THE BED YESTERDAY AND HAS BEEN COOPERATIVE WITH THERAPY. TODAY, WE WILL CONTINUE WITH CURRENT PLAN OF CARE AND HAVE PHYSICAL THERAPY CONTINUE TO WORK WITH PATIENT. WILL CONTINUE TO SEE PATIENT. PATIENTS DAUGHTER REPORTS THAT WHEN WE ARE READY FOR DISCHARGE, PATIENT WILL BE GOING TO A [facility] IN [place], [place] FOR REHAB AND PHYSICAL THERAPY. WE AGREE WITH THEIR PLAN. WE WILL FOLLOW UP WITH AM LABS AND CONTINUE TO MONITOR PATIENT. - Past Medical Family Social History Past Med/Fam/Surg Hx: No changes since H&P Allergies: Allergies Iodine and Iodide Containing Produc Allergy (Verified 12/21/17 18:53) Penicillins Allergy (Verified 12/19/17 11:52) Sulfa (Sulfonamide Antibiotics) [SULFA] Allergy (Verified 12/21/17 11:36) niacin Adverse Reaction (Verified 12/21/17 11:35) - Review of Systems ROS: No change since H&P - Vital Signs and I&O's Vital Signs: Temperature 98.1 F Pulse Rate [Apical] 74 Pulse Rate 85 Respiratory Rate 17 Blood Pressure [Left Arm] 134/65 Blood Pressure [Right Arm] 123/68 Blood Pressure 118/68 O2 Sat by Pulse Oximetry 95 Intake and Output: Intake & Output 12/27/17 12/28/17 12/29/17 12/30/17 11:59 11:59 11:59 11:59 Intake Total 5295 2532 860 2428 Output Total 2900 400 750 925 Balance 2395 2132 110 1503 - Physical Exam Oriented: Normal Eyes: Normal. negative: Blurred Vision, Diplopia, Discharge, Pain, Redness, Photophobia, Other Ear: Normal. negative: Right, Left, Swelling, Ecchymosis, Hemotypanum, Abrasion , Laceration Nose: Normal. negative: Injected, Discharge, Blood, Other Throat: Normal. negative: Tonsillar Hypertrophy, Red, Exudate, Dry, Other Respiratory: Normal Cardiovascular: Normal. negative: S3, S4, Murmur : Normal. negative: Dysuria, Hematuria, Frequency, Discharge, Testicular Pain , Bleeding, , Other Auscultation: Bowel Sounds: Decreased Palpation: Normal Tenderness: Diffuse, Mild (no wound infection.), Other (generalized tenderness with hypoactive BS). negative: Rebound, Rigidity Skin: Normal Musculoskeletal: Normal Psychiatric: Normal Mood Description: Calm Affect: Normal Speech Pattern: Clear - Laboratory and Diagnostics Result Diagrams: 12/30/17 05:25 12/30/17 05:25 Labs: 12/22/17 13:41 Abdomen Gram Stain - Final 12/22/17 13:41 Abdomen Wound Culture - Final Escherichia Coli 12/23/17 06:11 Urine,Catheterized Urine Culture - Final 12/22/17 13:41 Peritoneal Fluid Gram Stain - Final 12/22/17 13:41 Peritoneal Fluid Wound Culture - Final Escherichia Coli Laboratory WBC 9.6 X10^3/uL (3.6-10.0) 12/30/17 05:25 RBC 3.62 X10^6/uL (3.5-5.4) 12/30/17 05:25 Hgb 10.8 g/dL (12.0-16.0) L 12/30/17 05:25 Hct 30.9 % (36.0-47.0) L 12/30/17 05:25 MCV 85.5 fL (80.0-100.0) 12/30/17 05:25 MCH 30.0 pg (27.0-34.0) 12/30/17 05:25 MCHC 35.1 g/dL (33.0-35.0) H 12/30/17 05:25 RDW 13.8 % (11.6-16.5) 12/30/17 05:25 Plt Count 379 X10^3/uL (150.0-450.0) 12/30/17 05:25 Plt Count Comment Adequate (ADEQUATE) 12/28/17 05:40 MPV 7.6 fL (7.4-11.0) 12/30/17 05:25 Neut % 80.1 % (42.0-75.0) H 12/30/17 05:25 Lymph % 12.4 % (21.0-51.0) L 12/30/17 05:25 Kent % 5.2 % (0.0-13.0) 12/30/17 05:25 Eos % 1.9 % (0.9-2.9) 12/30/17 05:25 Baso % 0.4 % (0.2-1.0) 12/30/17 05:25 Neut # 7.7 x10^3/uL (2.2-4.8) H 12/30/17 05:25 Lymph # 1.2 X10^3/uL (1.3-2.9) L 12/30/17 05:25 Kent # 0.5 x10^3/uL (0.3-0.8) 12/30/17 05:25 Eos # 0.2 x10^3/uL (0.0-0.2) 12/30/17 05:25 Baso # 0.0 X10^3/uL (0.0-0.1) 12/30/17 05:25 Absolute Nucleated RBC 0.0 /100WBC 12/30/17 05:25 Total Counted 100 12/28/17 05:40 Neutrophils % (Manual) 93 % (39-76) H 12/28/17 05:40 Band Neutrophils % 1 % (0-10) 12/28/17 05:40 Lymphocytes % (Manual) 5 % (13-43) L 12/28/17 05:40 Monocytes % (Manual) 1 % (4-9) L 12/28/17 05:40 Eosinophils % (Manual) 1 % (0-6) 12/27/17 04:25 Plt Morphology Comment Normal (NORMAL) 12/28/17 05:40 RBC Morphology Normal (NORMAL) 12/28/17 05:40 INR Target Range - 12/21/17 14:10 INR 1.20 (0.8-1.3) 12/21/17 14:10 Sodium 135 mmol/L (136-145) L 12/30/17 05:25 Corrected Sodium 136 mmol/L (136-145) 12/30/17 05:25 Potassium 3.3 mmol/L (3.5-5.1) L 12/30/17 05:25 Chloride 99 mmol/L (98-107) 12/30/17 05:25 Carbon Dioxide 25.2 mmol/L (21-32) 12/30/17 05:25 BUN 11 mg/dL (7-18) 12/30/17 05:25 Creatinine 0.56 mg/dL (0.55-1.02) 12/30/17 05:25 Est GFR (MDRD) Af Amer > 60 (>60) 12/30/17 05:25 Est GFR (MDRD) Non-Af > 60 (>60) 12/30/17 05:25 Glucose 131 mg/dL (65-99) H 12/30/17 05:25 Lactic Acid 1.2 mmol/L (0.4-2.0) 12/21/17 14:10 Calcium 7.8 mg/dL (8.5-10.1) L 12/30/17 05:25 Corrected Calcium 9.1 mg/dL (8.5-10.1) 12/30/17 05:25 Magnesium 1.7 mg/dL (1.7-2.9) 12/20/17 05:30 Total Bilirubin 0.60 mg/dL (0.2-1.0) 12/30/17 05:25 AST 43 Units/L (15-37) H 12/30/17 05:25 ALT 100 Units/L (12-78) H 12/30/17 05:25 Alkaline Phosphatase 165 Units/L (46-116) H 12/30/17 05:25 Creatine Kinase 46 Units/L (26-192) 12/19/17 20:00 CK-MB (CK-2) 1.0 ng/mL (0-4.0) 12/19/17 20:00 CK/CKMB % Calc 2.2 % (<4) 12/19/17 20:00 Troponin I < 0.02 ng/mL (0-1.5) 12/19/17 20:00 Total Protein 5.1 g/dL (6.4-8.2) L 12/30/17 05:25 Albumin 2.4 g/dL (3.4-5.0) L 12/30/17 05:25 Globulin 2.7 g/dL (2.5-4.5) 12/30/17 05:25 Albumin/Globulin Ratio 0.9 Ratio (1.1-2.1) L 12/30/17 05:25 Prealbumin 9.7 mg/dL (18-35.7) L 12/23/17 06:00 Specimen Type Catherized urine 12/23/17 06:11 Urine Color Dark yellow (YELLOW) 12/23/17 06:11 Urine Appearance Slightly hazy (CLEAR) 12/23/17 06:11 Urine pH 5.0 (5.0 - 8.0) 12/23/17 06:11 Ur Specific Marshall 1.025 (1.000-1.030) 12/23/17 06:11 Urine Protein 2+ (NEGATIVE) 12/23/17 06:11 Urine Glucose (UA) 1+ (NEGATIVE) 12/23/17 06:11 Urine Ketones Negative (NEGATIVE) 12/23/17 06:11 Urine Occult Blood 3+ (NEGATIVE) 12/23/17 06:11 Urine Nitrite Negative (NEGATIVE) 12/23/17 06:11 Urine Bilirubin 1+ (NEGATIVE) 12/23/17 06:11 Urine Urobilinogen 1+ (NORMAL) 12/23/17 06:11 Ur Leukocyte Esterase 1+ (NEGATIVE) 12/23/17 06:11 Urine RBC 5-10 /HPF (NEGATIVE) 12/23/17 06:11 Urine WBC 2-6 /HPF (NEGATIVE) 12/23/17 06:11 Ur Squamous Epith Cells Rare /HPF (NEGATIVE) 12/23/17 06:11 Urine Bacteria 2+ /HPF (NEGATIVE) 12/23/17 06:11 Urine Mucus Rare /HPF (NEGATIVE) 12/19/17 15:30 Ur Culture Indicated? Yes/culture set up 12/23/17 06:11 Gastric Occult Blood Positive (NEGATIVE) A 12/20/17 06:20 Stool pH 5 12/20/17 06:20 Influenza Type A (PCR) Negative (NEGATIVE) 12/19/17 12:17 Influenza Type B (PCR) Negative (NEGATIVE) 12/19/17 12:17 Tissue Pathology To follow 12/22/17 13:41 Blood Type O POSITIVE 12/22/17 11:55 Antibody Screen Negative 12/22/17 11:55 - Plan (1) Diverticulitis of large intestine with perforation Status: Acute Qualifiers: Diverticulitis bleeding: unspecified bleeding status Qualified Code(s): K57.20 - Diverticulitis of large intestine with perforation and abscess without bleeding Plan: COLOSTOMY CARE AND TEACHING, CONTINUE IV ANTIBIOTICS, CONTINUE TO MONITOR PATIENT. (2) Intractable nausea and vomiting Status: Acute Qualifiers: Vomiting type: unspecified Qualified Code(s): R11.2 - Nausea with vomiting , unspecified Plan: COLOSTOMY CARE, ZOFRAN COCKTAIL IV Q8H PRN, PEPCID 20MG IV Q12H, PROTONIX 40MG IV BID, CONTINUE TO MONITOR (3) Abdominal pain Status: Acute Qualifiers: Abdominal location: lower abdomen, unspecified Qualified Code(s): R10.30 - Lower abdominal pain, unspecified Plan: MORPHINE 1MG IV Q6H PRN PAIN, CONTINUE TO MONITOR (4) Hypertension Status: Acute Qualifiers: Hypertension type: essential hypertension Qualified Code(s): I10 - Essential (primary) hypertension Plan: LABETALOL PROTOCOL, CONTINUE COZAAR, CONTINUE TO MONITOR (5) Hypothyroidism Status: Acute Qualifiers: Hypothyroidism type: acquired Qualified Code(s): E03.9 - Hypothyroidism, unspecified Plan: CONTINUE SYNTHROID, CONTINUE TO MONITOR
[2017-12-30 15:13] VITALS: BP 137/63
== END 2017-12-30 15:00 | DRG 330 ==
LOC: ICU 11:33
PROVIDERS: ADMIT Internal Medicine; ATTEND Internal Medicine
PROC: 0D1L0Z4 Bypass Transverse Colon to Cutaneous, Open Approach (ICD-10-PCS; 2017-12-22)
PROC: 0DTG0ZZ Resection of Left Large Intestine, Open Approach (ICD-10-PCS; principal; 2017-12-22 12:00)
DX: K57.20 Diverticulitis of large intestine with perforation and abscess without bleeding (principal); K56.7 Ileus, unspecified; R10.84 Generalized abdominal pain; E86.0 Dehydration; I10 Essential (primary) hypertension; E03.8 Other specified hypothyroidism; K66.0 Peritoneal adhesions (postprocedural) (postinfection); B96.29 Other Escherichia coli [E. coli] as the cause of diseases classified elsewhere; R26.89 Other abnormalities of gait and mobility
CPT/HCPCS: 36415; 71045; 71046; 74018; 74022; 74176; 80053; 81001; 82271; 82550; 82553; 83605; 83735; 84132; 84134; 84484; 85014; 85018; 85025; 85610; 86850; 86900; 86901; 87070; 87075; 87077; 87086; 87186; 87205; 87502; 88307; 93005; 94640; 97535; 99100; A4216; A4222; B5200; C9113; P9047; S0020; S0028; J0330; J0713; J0744; J1100; J1170; J1650; J1940; J2060; J2270; J2370; J2405; J2543; J2710; J3010; J3480; J3490; J7042; J7120